=== PATIENT | male | born 1945 | race Caucasian/White ===

== ENCOUNTER 2016-10-26 09:28 | Outpatient (CLI) | payer MEDICARE, OTHER ==
[2016-10-26 12:47] LABS: BASOPHILS # (AUTO) 0.1 10^3/uL (0.0-0.1); BASOPHILS % (AUTO) 1.1 %; EOSINOPHILS # (AUTO) 0.1 10^3/uL (0.0-0.7); EOSINOPHILS % (AUTO) 2.1 %; HCT - HEMATOCRIT 43.6 % (42.0-52.0); HGB - HEMOGLOBIN 14.5 g/dL (14.0-18.0); LYMPHOCYTES # (AUTO) 1.5 10^3/uL (1.5-3.5); LYMPHOCYTES % (AUTO) 24.8 %; MEAN CORPUSCULAR HEMOGLOBIN 29.8 pg (27.0-31.0); MEAN CORPUSCULAR HGB CONC 33.2 g/dL (32.0-36.0); MEAN CORPUSCULAR VOLUME 89.7 fL (80.0-94.0); MEAN PLATELET VOLUME 7.7 fL (7.4-11.4); MONOCYTES # (AUTO) 0.6 10^3/uL (0.0-1.0); MONOCYTES % (AUTO) 9.5 %; NEUTROPHILS # (AUTO) 3.8 10^3/uL (1.5-6.6); NEUTROPHILS % (AUTO) 62.5 %; NUCLEATED RED BLOOD CELLS AUTO 0.1 /100WBC; RED BLOOD COUNT 4.86 10^6/uL (4.70-6.10)
[2016-10-26 13:06] LABS: HEMOGLOBIN A1C 0.62 g/dL
[2016-10-26 13:10] LABS: ALBUMIN/GLOBULIN RATIO 1.5 (1.0-2.2); BILIRUBIN,TOTAL 0.7 mg/dL (0.2-1.0); BUN - BLOOD UREA NITROGEN 21 mg/dL (6-20); CALCIUM 9.7 mg/dL (8.5-10.3); CARBON DIOXIDE - CO2 26 mmol/L (21-32); CHLORIDE 104 mmol/L (101-111); CHOL/HDL RATIO 3.3 (<5.0); CHOLESTEROL 176 mg/dL; CREATININE 0.8 mg/dL (0.6-1.2); GFR - MDRD 95 (>89); GLUCOSE 99 mg/dL (70-100); HDL CHOLESTEROL 54 mg/dL; LDL/HDL RATIO 2.1 (<3.6); POTASSIUM 3.8 mmol/L (3.5-5.0); SODIUM 139 mmol/L (135-145); TOTAL PROTEIN 7.3 g/dL (6.7-8.2); TRIGLYCERIDES 55 mg/dL; VLDL CHOLESTEROL 11 mg/dL
== END 2016-10-26 09:29 | disposition home or self-care (01) ==
LOC: LAB.N 09:28
PROVIDERS: ATTEND Internal Medicine
DX: M19.90 Unspecified osteoarthritis, unspecified site (principal); E78.5 Hyperlipidemia, unspecified; E88.81 Metabolic syndrome and other insulin resistance; I10 Essential (primary) hypertension; Z79.899 Other long term (current) drug therapy; Z72.89 Other problems related to lifestyle
CPT/HCPCS: 36415; 80053; 80061; 83036; 84443; 85025; 86803

== ENCOUNTER 2017-04-21 08:00 | Outpatient (CLI) | payer MEDICARE, OTHER ==
[2017-04-21 18:47] LABS: CREATININE 0.8 mg/dL (0.6-1.2)
== END 2017-04-21 08:01 | disposition home or self-care (01) ==
LOC: LAB.N 08:00
PROVIDERS: ATTEND Surgery
DX: Z01.812 Encounter for preprocedural laboratory examination (principal); R10.32 Left lower quadrant pain
CPT/HCPCS: 36415; 82565; 84520

== ENCOUNTER 2017-12-22 09:21 | Outpatient (CLI) | payer MEDICARE, OTHER ==
[2017-12-22 12:47] LABS: BASOPHILS % (AUTO) 0.7 %; EOSINOPHILS # (AUTO) 0.1 10^3/uL (0.0-0.7); EOSINOPHILS % (AUTO) 1.1 %; LYMPHOCYTES # (AUTO) 1.2 10^3/uL (1.5-3.5); MEAN CORPUSCULAR HEMOGLOBIN 32.9 pg (27.0-31.0); MEAN CORPUSCULAR VOLUME 96.8 fL (80.0-94.0); MEAN PLATELET VOLUME 7.3 fL (7.4-11.4); MONOCYTES # (AUTO) 0.7 10^3/uL (0.0-1.0); MONOCYTES % (AUTO) 12.1 %; NEUTROPHILS # (AUTO) 3.6 10^3/uL (1.5-6.6); NEUTROPHILS % (AUTO) 64.1 %; PLT - PLATELET COUNT 334 10^3/uL (130-450); RED BLOOD COUNT 4.26 10^6/uL (4.70-6.10); WHITE BLOOD COUNT 5.6 x10^3/uL (4.8-10.8)
[2017-12-22 13:13] LABS: HB2 TOTAL 15.4 g/dL; HEMOGLOBIN A1C 0.55 g/dL; HEMOGLOBIN A1C % 5.4 % (4.6-6.2)
[2017-12-22 13:16] LABS: ALBUMIN 4.2 g/dL (3.2-5.5); ALBUMIN/GLOBULIN RATIO 1.6 (1.0-2.2); ALKALINE PHOSPHATASE 63 IU/L (42-121); ALT ALANINE AMINOTRANSFERASE 22 IU/L (10-60); AST ASPARTATE AMINOTRANSFERASE 25 IU/L (10-42); BILIRUBIN,TOTAL 0.7 mg/dL (0.2-1.0); BUN - BLOOD UREA NITROGEN 18 mg/dL (6-20); CALCIUM 9.6 mg/dL (8.5-10.3); CARBON DIOXIDE - CO2 29 mmol/L (21-32); CHLORIDE 96 mmol/L (101-111); CHOL/HDL RATIO 2.8 (<5.0); CHOLESTEROL 160 mg/dL; CREATININE 0.9 mg/dL (0.6-1.2); GFR - MDRD 83 (>89); GLUCOSE 91 mg/dL (70-100); HDL CHOLESTEROL 57 mg/dL; LDL CHOLESTEROL,CALCULATED 93 mg/dL; LDL/HDL RATIO 1.6 (<3.6); SODIUM 133 mmol/L (135-145); TOTAL PROTEIN 6.8 g/dL (6.7-8.2); VLDL CHOLESTEROL 10 mg/dL
== END 2017-12-22 09:22 ==
LOC: LAB.N 09:21
PROVIDERS: ATTEND Internal Medicine
DX: E88.81 Metabolic syndrome and other insulin resistance (principal); Z79.899 Other long term (current) drug therapy; E78.5 Hyperlipidemia, unspecified; Z12.5 Encounter for screening for malignant neoplasm of prostate; I10 Essential (primary) hypertension
CPT/HCPCS: 36415; 80053; 80061; 83036; 85025; G0103; 83721; 84153

== ENCOUNTER 2018-06-08 10:39 | Outpatient (CLI) | payer MEDICARE, OTHER ==
[2018-06-08 11:18] LABS: BASOPHILS # (AUTO) 0.1 10^3/uL (0.0-0.1); BASOPHILS % (AUTO) 0.7 %; EOSINOPHILS # (AUTO) 0.1 10^3/uL (0.0-0.7); EOSINOPHILS % (AUTO) 0.5 %; HGB - HEMOGLOBIN 14.4 g/dL (14.0-18.0); LYMPHOCYTES % (AUTO) 9.4 %; MEAN CORPUSCULAR HEMOGLOBIN 31.1 pg (27.0-31.0); MEAN CORPUSCULAR HGB CONC 33.6 g/dL (32.0-36.0); MEAN CORPUSCULAR VOLUME 92.4 fL (80.0-94.0); MEAN PLATELET VOLUME 5.9 fL (7.4-11.4); MONOCYTES # (AUTO) 1.2 10^3/uL (0.0-1.0); MONOCYTES % (AUTO) 11.6 %; NEUTROPHILS % (AUTO) 77.8 %; PLT - PLATELET COUNT 355 10^3/uL (130-450); RED BLOOD COUNT 4.64 10^6/uL (4.70-6.10); RED CELL DISTRIBUTION WIDTH 14.3 % (12.0-15.0); WHITE BLOOD COUNT 10.2 x10^3/uL (4.8-10.8)
[2018-06-08 11:20] LABS: ALBUMIN 4.3 g/dL (3.2-5.5); ALBUMIN/GLOBULIN RATIO 1.4 (1.0-2.2); BILIRUBIN,TOTAL 0.7 mg/dL (0.2-1.0); CALCIUM 9.3 mg/dL (8.5-10.3); TOTAL PROTEIN 7.3 g/dL (6.7-8.2)
== END 2018-06-08 10:40 | disposition home or self-care (01) ==
LOC: LAB 10:39
PROVIDERS: ATTEND Internal Medicine Gastroenterology
DX: I10 Essential (primary) hypertension (principal); E78.5 Hyperlipidemia, unspecified
CPT/HCPCS: 36415; 80053; 85025; 93005

== ENCOUNTER 2018-06-08 11:13 | Outpatient (CLI) | payer MEDICARE, OTHER | END 2018-06-08 11:14 | disposition home or self-care (01) | LOC: RT 11:13 | PROVIDERS: ATTEND Internal Medicine Gastroenterology | DX: I10 Essential (primary) hypertension (principal); E78.5 Hyperlipidemia, unspecified ==

== ENCOUNTER 2018-06-15 09:54 | Day surgery (SDC) | payer MEDICARE, OTHER ==
[2018-06-15] MEDS ORDERED: LACTATED RINGERS 1,000 ML IV ONE (09:59)
[2018-06-15] MEDS ORDERED: fentaNYL 100 MCG/2 ML VIAL IVP ONE (10:54)
[2018-06-15] MEDS ORDERED: MIDAZOLAM 2 MG/2 ML VIAL IVP ONE (10:54)
[2018-06-15 11:48] VITALS: BP 102/73
== END 2018-06-15 09:55 | disposition home or self-care (01) ==
LOC: SDS 09:54
PROVIDERS: ATTEND Internal Medicine Gastroenterology
PROC: 0DJD8ZZ Inspection of Lower Intestinal Tract, Via Natural or Artificial Opening Endoscopic (ICD-10-PCS; principal; 2018-06-15 11:00)
DX: Z12.11 Encounter for screening for malignant neoplasm of colon (principal); Z86.010 Personal history of colon polyps; I10 Essential (primary) hypertension
CPT/HCPCS: G0105; J7120

== ENCOUNTER 2019-08-22 09:32 | Outpatient (CLI) | payer MEDICARE, OTHER ==
--- NOTE | 2019-08-22 11:10 | XRAY Report ---
PROCEDURE: Lumbar Spine Complete INDICATIONS: GROIN PX,LUMBAR RADICULOPATHY,SPINAL STENOSIS,HIP TECHNIQUE: 4 views of the lumbar spine were acquired. COMPARISON: None. FINDINGS: No fracture or focal osseous destruction. Scattered multilevel endplate spurring and diffuse facet a rthropathy. Grade 1 anterolisthesis of L3 on L4. Grade 1 retrolisthesis of T12 on L1 and L1 on L2 Lateral curvatu re of the spine. Severe narrowing of the L5-S1 disc space. Moderate narrowing of the remaining lumbar disc spaces. Scattered vascular calcifications are present in the aorta. IMPRESSION: Moderate diffuse lumbar spondylosis and facet arthropathy. Multilevel spondylolistheses as above. Reviewed by: Angel Martinez MD on 08/22/2019 11:09 AM PDT Approved by: Angel Martinez MD on 08/22/2019 11:09 AM PDT Station ID: [id number]
--- NOTE | 2019-08-22 11:49 | XRAY Report ---
PROCEDURE: Hips 2V BILAT INDICATIONS: GROIN PX,LUMBAR RADICULOPATHY,SPINAL STENOSIS,HIP TECHNIQUE: 2 views of the hip were acquired. AP pelvis was acquired. COMPARISON: None available FINDINGS: Bones: No fractures or dislocations. There are severe degenerative changes in both hips including n ear complete joint space loss superiorly and axially. In the femoral acetabular joint, subcortical cy stic changes, spurring of the inferior femoral heads, and superior acetabula. No suspicious bony lesi ons. The visualized pelvic ring appears intact. Soft tissues: No suspicious soft tissue calcifications or masses. Mild arterial calcification. IMPRESSION: 1. Severe, fairly symmetric degenerative and arthritic changes in the hip joints bilaterally Reviewed by: Juliann Leger MD on 08/22/2019 11:48 AM PDT Approved by: Juliann Leger MD on 08/22/2019 11:48 AM PDT Station ID: [id number]
== END 2019-08-22 09:33 | disposition home or self-care (01) ==
LOC: DI 09:32
PROVIDERS: ATTEND Family Medicine
DX: M47.816 Spondylosis without myelopathy or radiculopathy, lumbar region (principal); M47.817 Spondylosis without myelopathy or radiculopathy, lumbosacral region; M43.16 Spondylolisthesis, lumbar region; M16.0 Bilateral primary osteoarthritis of hip
CPT/HCPCS: 72110; 73521

== ENCOUNTER 2019-08-27 08:59 | Outpatient (CLI) | payer MEDICARE, OTHER ==
[2019-08-27 12:28] LABS: BASOPHILS # (AUTO) 0.1 10^3/uL (0.0-0.1); BASOPHILS % (AUTO) 0.8 %; EOSINOPHILS # (AUTO) 0.1 10^3/uL (0.0-0.7); EOSINOPHILS % (AUTO) 1.4 %; HGB - HEMOGLOBIN 14.5 g/dL (14.0-18.0); LYMPHOCYTES # (AUTO) 1.4 10^3/uL (1.5-3.5); LYMPHOCYTES % (AUTO) 22.3 %; MEAN CORPUSCULAR HEMOGLOBIN 29.7 pg (27.0-31.0); MEAN CORPUSCULAR HGB CONC 31.8 g/dL (32.0-36.0); MEAN CORPUSCULAR VOLUME 93.4 fL (80.0-94.0); MEAN PLATELET VOLUME 9.1 fL (7.4-11.4); MONOCYTES # (AUTO) 0.6 10^3/uL (0.0-1.0); NEUTROPHILS # (AUTO) 4.2 10^3/uL (1.5-6.6); NEUTROPHILS % (AUTO) 66.2 %; PLT - PLATELET COUNT 337 10^3/uL (130-450); RED BLOOD COUNT 4.88 10^6/uL (4.70-6.10); RED CELL DISTRIBUTION WIDTH 14.2 % (12.0-15.0); WHITE BLOOD COUNT 6.3 x10^3/uL (4.8-10.8)
[2019-08-27 12:49] LABS: ALBUMIN 4.4 g/dL (3.2-5.5); ALBUMIN/GLOBULIN RATIO 1.5 (1.0-2.2); BILIRUBIN,TOTAL 0.5 mg/dL (0.2-1.0); CALCIUM 9.8 mg/dL (8.5-10.3); CREATININE 0.9 mg/dL (0.6-1.2); TOTAL PROTEIN 7.3 g/dL (6.7-8.2)
== END 2019-08-27 23:59 | disposition home or self-care (01) ==
LOC: LAB.WCP 08:59
PROVIDERS: ATTEND Family Medicine
DX: I10 Essential (primary) hypertension (principal); Z12.5 Encounter for screening for malignant neoplasm of prostate
CPT/HCPCS: 36415; 80053; 84443; 85025; G0103; 84153

== ENCOUNTER 2019-08-30 10:42 | Outpatient (CLI) | payer MEDICARE, OTHER | END 2019-08-30 23:59 | disposition home or self-care (01) | LOC: LAB.WCP 10:42 | PROVIDERS: ATTEND Family Medicine | DX: Z03.818 Encounter for observation for suspected exposure to other biological agents ruled out (principal) | CPT/HCPCS: 36415; 86769 ==

== ENCOUNTER 2020-07-14 13:15 | Outpatient (CLI) | payer MEDICARE, OTHER ==
--- NOTE | 2020-07-14 17:24 | MRI Report ---
PROCEDURE: Lumbar Spine W/O INDICATIONS: SPINAL STENOSIS, LUMBAR TECHNIQUE: Noncontrast sagittal T1 spin echo and T2 fast echo, sagittal STIR, axial T1 and T2 fast spin echo thr ough the lumbar spine. In cases with scoliosis, additional coronal T2 fast spin echo may be performe d. COMPARISON: Lumbar spine x-ray series 08/22/2019. FINDINGS: Image quality: Excellent. Alignment and Curvature: There is mild L4-L5 and L5-S1 anterolisthesis. 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 For purposes of this dictation the 6 lumbar-type nonrib-bearing vertebral bodies be designa saray L1-S1 with the last nonrudimentary disc designated S1-S2. Reactive endplate changes noted adjacen t to the T12-L1, L1-L2, L2-L3, L3-L4, L4-L5, L5-S1 and S1-S2 discs. No acute vertebral body compressi on fractures. Spinal Cord: Conus medullaris terminates at the L1-2 disc level. Visualized cord demonstrates zack l signal and size. Paraspinous Soft Tissues: No paravertebral masses. T12-L1: Loss of disc signal. Mild, diffuse disc bulge. No central stenosis. No neuroforaminal narrow ing. No neural compression. L1-L2: Loss of disc signal and height. Mild, diffuse disc bulge. Mild bilateral facet hypertrophy. Mild narrowing of the central canal. Mild bilateral neural foraminal narrowing. No neural compressio n. L2-L3: Loss of disc signal. Mild, diffuse disc bulge. Mild bilateral facet hypertrophy. Mild to mo derate narrowing of the central canal. Mild to moderate bilateral neural foraminal narrowing. No neur al compression. L3-L4: Loss of disc signal and height. Mild to moderate diffuse disc bulge. Mild to moderate bilate ral facet hypertrophy. Mild ligamentum flavum hypertrophy. Moderate narrowing of the central canal. M oderate bilateral neural foraminal narrowing. No neural compression. L4-L5: Loss of disc signal and height. Mild, diffuse disc bulge. Moderate bilateral facet hypertrop hy. Severe narrowing of the central canal with slight compression of the traversing nerve roots of th e cauda equina. Moderate bilateral neural foraminal narrowing. L5-S1: Loss of disc signal and height. Mild, diffuse disc bulge. Severe right and moderate left fac et hypertrophy. Severe narrowing of the central canal with slight compression of the traversing nerve roots of the cauda equina. Severe right and moderate left neural foraminal narrowing with compressio n of the exiting right L5 nerve root. S1-S2: Loss of disc signal. Mild, diffuse disc bulge. Mild bilateral facet hypertrophy. No central st enosis. No neural foraminal narrowing. No neural compression IMPRESSION: 1. 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 2. Multilevel degenerative disc disease. 3. Multilevel facet arthropathy. 4. Severe L4-L5 and L5-S1 central canal narrowing slight compression of the traversing nerve roots of the cauda equina. 5. Severe right L5-S1 neural foraminal narrowing with slight compression of the exiting right L5 nerv e root. Reviewed by: Jackelyn Schwartz MD, PhD on 07/14/2020 5:23 PM PDT Approved by: Jackelyn Schwartz MD, PhD on 07/14/2020 5:23 PM PDT Station ID: [id number]
== END 2020-07-14 13:16 | disposition home or self-care (01) ==
LOC: DI 13:15
PROVIDERS: ATTEND Physical Medicine & Rehabilitation Pain Medicine
DX: M51.36 Other intervertebral disc degeneration, lumbar region (principal); M48.061 Spinal stenosis, lumbar region without neurogenic claudication; M47.816 Spondylosis without myelopathy or radiculopathy, lumbar region; M51.37 Other intervertebral disc degeneration, lumbosacral region; M48.07 Spinal stenosis, lumbosacral region; M47.817 Spondylosis without myelopathy or radiculopathy, lumbosacral region; M47.898 Other spondylosis, sacral and sacrococcygeal region; M53.3 Sacrococcygeal disorders, not elsewhere classified

== ENCOUNTER 2020-09-11 08:04 | Outpatient (CLI) | payer MEDICARE, OTHER ==
[2020-09-11 13:12] LABS: BASOPHILS % (AUTO) 0.6 %; EOSINOPHILS # (AUTO) 0.1 10^3/uL (0.0-0.7); EOSINOPHILS % (AUTO) 1.5 %; HCT - HEMATOCRIT 44.7 % (42.0-52.0); HGB - HEMOGLOBIN 13.8 g/dL (14.0-18.0); LYMPHOCYTES # (AUTO) 1.3 10^3/uL (1.5-3.5); LYMPHOCYTES % (AUTO) 18.9 %; MEAN CORPUSCULAR HEMOGLOBIN 29.2 pg (27.0-31.0); MEAN CORPUSCULAR HGB CONC 30.9 g/dL (32.0-36.0); MEAN CORPUSCULAR VOLUME 94.7 fL (80.0-94.0); MEAN PLATELET VOLUME 9.2 fL (7.4-11.4); MONOCYTES # (AUTO) 0.6 10^3/uL (0.0-1.0); MONOCYTES % (AUTO) 8.1 %; NEUTROPHILS # (AUTO) 4.8 10^3/uL (1.5-6.6); NEUTROPHILS % (AUTO) 70.3 %; PLT - PLATELET COUNT 363 10^3/uL (130-450); RED BLOOD COUNT 4.72 10^6/uL (4.70-6.10); WHITE BLOOD COUNT 6.8 x10^3/uL (4.8-10.8)
[2020-09-11 14:07] LABS: ALBUMIN 4.4 g/dL (3.2-5.5); ALBUMIN/GLOBULIN RATIO 1.6 (1.0-2.2); ALKALINE PHOSPHATASE 75 IU/L (42-121); ALT ALANINE AMINOTRANSFERASE 23 IU/L (10-60); AST ASPARTATE AMINOTRANSFERASE 23 IU/L (10-42); BILIRUBIN,TOTAL 0.7 mg/dL (0.2-1.0); BUN - BLOOD UREA NITROGEN 21 mg/dL (6-20); CALCIUM 9.9 mg/dL (8.5-10.3); CARBON DIOXIDE - CO2 27 mmol/L (21-32); CHLORIDE 102 mmol/L (101-111); CHOL/HDL RATIO 2.8 (<5.0); CHOLESTEROL 156 mg/dL; CREATININE 0.9 mg/dL (0.6-1.2); GFR - MDRD 82 (>89); GLUCOSE 93 mg/dL (70-100); HDL CHOLESTEROL 56 mg/dL; LDL CHOLESTEROL,CALCULATED 87 mg/dL; LDL/HDL RATIO 1.6 (<3.6); POTASSIUM 4.7 mmol/L (3.5-5.0); SODIUM 140 mmol/L (135-145); TOTAL PROTEIN 7.1 g/dL (6.7-8.2); TRIGLYCERIDES 63 mg/dL; VLDL CHOLESTEROL 13 mg/dL
[2020-09-11 14:19] LABS: THYROID STIMULATING HORMONE 1.64 uIU/mL (0.34-5.60)
== END 2020-09-11 23:59 | disposition home or self-care (01) ==
LOC: LAB.WCP 08:04
PROVIDERS: ATTEND Family Medicine
DX: M16.0 Bilateral primary osteoarthritis of hip (principal); I10 Essential (primary) hypertension; M75.41 Impingement syndrome of right shoulder; M19.019 Primary osteoarthritis, unspecified shoulder; M51.37 Other intervertebral disc degeneration, lumbosacral region
CPT/HCPCS: 36415; 80053; 80061; 83721; 84443; 85025; 85651

== ENCOUNTER 2021-12-24 08:52 | Day surgery (SDC) | payer MEDICARE, OTHER ==
--- NOTE | 2021-12-24 07:50 | ANESTHESIA ---
Pre-Anesthesia VS, & Labs Height: 5 ft 9 in - NPO >8 hours - Lab Results Lab results reviewed: No <Mega Hernandez - Last Filed: 12/24/21 07:49> - Diagnosis L senile combined cataract (Mega Hernandez) - Procedure extraction L cataract w IOL (Mega Hernandez) Vital Signs: Temp Pulse Resp BP Pulse Ox O2 Flow Rate 36.1 C L 59 L 16 155/70 H 99 0 12/24/21 08:59 12/24/21 08:59 12/24/21 08:59 12/24/21 08:59 12/24/21 08:59 12/24/21 08:59 Home Medications and Allergies <Mega Hernandez - Last Filed: 12/24/21 07:49> <Radha Lua E - Last Filed: 12/24/21 09:44> Meloxicam 1 tab PO DAILY 06/14/18 Multivitamin [Multiple Vitamins] 1 tab PO DAILY 06/14/18 Allergies/Adverse Reactions: Allergies Allergy/AdvReac Type Severity Reaction Status Date / Time oxycodone AdvReac Unknown Verified 12/23/21 11:10 Anes History & Medical History - Medical History Cardiovascular: reports: Hypertension, High cholesterol Pulmonary: reports: None Gastrointestinal: reports: None, Colon polyps Urinary: reports: None Musculoskeletal: reports: Osteoarthritis Endocrine/Autoimmune: reports: None Skin: reports: None - Surgical History General: reports: Colonoscopy Eyes Ears Nose Throat (EENT): reports: Other Orthopedic: reports: Hip replacement, Other <Mega Hernandez P - Last Filed: 12/24/21 07:49> - Anesthetic History Anesthesia Complications: reports: No previous complications - Medical History Cardiovascular: reports: High cholesterol Gastrointestinal: reports: None, Colon polyps Urinary: reports: None Musculoskeletal: reports: Osteoarthritis Endocrine/Autoimmune: reports: None Skin: reports: None - Surgical History General: reports: Colonoscopy Eyes Ears Nose Throat (EENT): reports: Other Orthopedic: reports: Hip replacement, Other <Radha Lua E - Last Filed: 12/24/21 09:44> Exam General: Alert, Oriented x3, Cooperative <Mega Hernandez - Last Filed: 12/24/21 07:49> General: Alert, Oriented x3, Cooperative Dental: WNL Neck Mobility: Normal Mallampati classification: II Thyromental Distance: greater than 6 cm Respiratory: Lungs clear Cardiovascular: Regular rate <Radha Lua E - Last Filed: 12/24/21 09:44> Plan Anesthesia Type: MAC Consent for Procedure(s) Verified and Reviewed: Yes Code Status: Attempt Resuscitation ASA classification: 2-Mild systemic disease Is this case an emergency?: No <Mega Hernandez P - Last Filed: 12/24/21 07:49> Anesthesia Type: MAC Consent for Procedure(s) Verified and Reviewed: Yes Code Status: Attempt Resuscitation ASA classification: 2-Mild systemic disease Is this case an emergency?: No <Radha Lua E - Last Filed: 12/24/21 09:44>
[~2021-12-24 08:52] MED LIST: BRIMONIDINE 0.2% OPHTH DROPS 5 ML ONE; BSS/LIDOCAINE/EPINEPHRINE 1 ML VIAL ONE; CYCLOPENTOLATE 1% OPHTH DROPS 2 ML ONE; EPINEPHrine 1 MG/ML AMP ONE; KETOROLAC 0.45% OPHTH DROPS ONE; PHENYLEPHRINE 2.5% OPHTH 2 ML DROPS ONE; PROPARACAINE 0.5% OPHTH DROPS 15 ML ONE; TIMOLOL 0.5% OPHTH DROPS ONE; TRIAMCIN/MOXIFLOX OPHTHALMIC 0.6 ML VIAL IO ONE; VANCOMYCIN OPHTH (TOPICAL) 10 MG/ML SYRINGE ONE
[2021-12-24] MEDS ORDERED: LACTATED RINGERS 1,000 ML IV ONE (08:58)
[2021-12-24] MEDS ORDERED: MIDAZOLAM 2 MG/2 ML VIAL ONE (09:26)
[2021-12-24] MEDS ORDERED: BRIMONIDINE 0.2% OPHTH DROPS 5 ML OPTH ONE (10:18)
[2021-12-24] MEDS ORDERED: TIMOLOL 0.5% OPHTH DROPS OPTH ONE (10:19)
[2021-12-24] MEDS ORDERED: EPINEPHrine 1 MG/ML AMP IR ONE (10:19)
[2021-12-24] MEDS ORDERED: BSS/LIDOCAINE/EPINEPHRINE 1 ML SYRINGE IO ONE (10:19)
[2021-12-24] MEDS ORDERED: PROPARACAINE 0.5% OPHTH DROPS 15 ML EACHEYE ONE (10:20)
[2021-12-24] MEDS ORDERED: TRIAMCIN/MOXIFLOX OPHTHALMIC 0.6 ML VIAL IO ONE (10:20)
[2021-12-24] MEDS ORDERED: VANCOMYCIN OPHTH (TOPICAL) 10 MG/ML SYRINGE TOP ONE (10:20)
[2021-12-24] MEDS ORDERED: LACTATED RINGERS 750 ML IV ONE (10:26)
--- NOTE | 2021-12-24 10:34 | OPERATIVE REPORT ---
Operative Report - Other Other Information/Narrative: Date of Surgery: 12/24/21 Preop Dx: Visually significant cataract left eye. This was the first cataract surgery. Postop Dx: Same Procedure: Phacoemulsification with posterior chamber intraocular lens implant left eye Surgeon: Dr. Devin Watters Anesthesia: Monitored anesthesia care Complications: None Operative Indications: This is a 76-year-old M with progressive vision loss in the left eye due to 2+ nuclear sclerotic and 1+ posterior subcapsular cataract. Best corrected visual acuity was 20/50 with glare to 20/60 vision in the left eye. Indications for surgery were: - Overall decrease in vision - Difficulty seeing words on a computer screen - Difficulty reading - Difficulty seeing words, closed captions, or game scores on TV - Difficulty seeing street signs - Difficulty driving in low light or at night - Difficulty driving at night because of headlights from other vehicles - Difficulty with glare or bright lights in any situation - Decreased acuity with firearms The patient was consented at length concerning the risks and benefits of cataract surgery after which the patient expressed a desire to proceed with surgery. Operative Procedure: The patient was taken into OR#3 and placed under monitored anesthesia care. A surgical time-out was conducted confirming correct patient, correct procedure, and correct surgical site. The patient was given topical anesthesia and then prepped and draped in the usual sterile fashion. The eye was entered at the 6 and 3 oclock positions. Intracameral Shugarcaine was injected into the anterior chamber followed by a dispersive viscoelastic. A continuous-tear curvilinear capsulorhexis was performed. The nucleus was hydrodissected and phacoemulsified. The cortex was evacuated using automated infusion and aspiration. A cohesive viscoelastic was injected into the capsular bag and a 21.5 diopter intraocular lens was inserted into the bag. Infusion and aspiration were used to evacuate the viscoelastic materials from the eye. The wounds were hydrated and the eye inflated to physiologic pressure using balanced salt solution. Approximately 0.25ml of a mixture of triamcinolone and moxifloxacin was injected trans-sclerally into the vitreous in the inferotemporal quadrant using a 30 gauge cannula. An additional 0.55ml of a mixture of triamcinolone and moxifloxacin was injected subconjunctivally in the superior quadrant for infection and inflammation prophylaxis. Wound integrity was checked with Weck-Jacqueline sponges. The patient was taken from the operating room in good condition and given post-op instructions.
--- NOTE | 2021-12-24 10:36 | ANESTHESIA POST OP EVALUATION ---
Anesthesia Post Eval - Post Anesthesia Eval Vitals: Last Vital Signs Temp 36.2 C L 12/24/21 10:26 Pulse 57 L 12/24/21 10:26 Resp 16 12/24/21 10:26 BP 143/78 H 12/24/21 10:26 Pulse Ox 100 12/24/21 10:26 O2 Flow Rate 0 12/24/21 08:59 CV Function Including HR & BP: Stable Pain Control: Satisfactory Nausea & Vomiting: Negative Mental Status: Baseline Respiratory Status: Airway Patent Hydration Status: Satisfactory Anesthesia Complications: None
[2021-12-24 10:50] VITALS: BP 127/68
== END 2021-12-24 08:53 | disposition home or self-care (01) ==
LOC: SDS 08:52
PROVIDERS: ATTEND Ophthalmology
DX: H25.812 Combined forms of age-related cataract, left eye (principal)
CPT/HCPCS: 66984; A9270; J3490; J7120

== ENCOUNTER 2022-01-20 10:21 | Outpatient (CLI) | payer MEDICARE, OTHER ==
--- NOTE | 2022-01-20 12:49 | Ultrasound Report ---
PROCEDURE: Pelvic Limited or F/U INDICATIONS: LEFT GROIN PAIN TECHNIQUE: Real-time transabdominal scanning was performed of the left groin, with image documentation. COMPARISON: None. FINDINGS: No left inguinal hernia. No mass or fluid collection in the area of concern. IMPRESSION: No left inguinal hernia. Reviewed by: Rowdy Bledsoe MD on 01/20/2022 12:48 PM PST Approved by: Rowdy Bledsoe MD on 01/20/2022 12:48 PM PST Station ID: [id number]
== END 2022-01-20 10:22 | disposition home or self-care (01) ==
LOC: DI 10:21
PROVIDERS: ATTEND Physician Assistant
DX: R10.32 Left lower quadrant pain (principal)

== ENCOUNTER 2022-02-11 08:21 | Day surgery (SDC) | payer MEDICARE, OTHER ==
[~2022-02-11 08:21] MED LIST changes: -BRIMONIDINE 0.2% OPHTH DROPS 5 ML ONE; -BSS/LIDOCAINE/EPINEPHRINE 1 ML VIAL ONE; -EPINEPHrine 1 MG/ML AMP ONE; -TIMOLOL 0.5% OPHTH DROPS ONE; -TRIAMCIN/MOXIFLOX OPHTHALMIC 0.6 ML VIAL IO ONE; -VANCOMYCIN OPHTH (TOPICAL) 10 MG/ML SYRINGE ONE
--- NOTE | 2022-02-11 09:32 | ANESTHESIA ---
Pre-Anesthesia VS, & Labs - Diagnosis RIGHT CATARACT - Procedure RIGHT CATARACT EXTRACTION W/ LENS REPLACEMENT Vital Signs: Temp Pulse Resp BP Pulse Ox O2 Flow Rate 36.3 C L 56 L 14 144/75 H 97 02/11/22 08:59 02/11/22 08:59 02/11/22 08:59 02/11/22 08:59 02/11/22 08:59 Height: 5 ft 9 in Weight (kg): 80.1 kg Body Mass Index: 26.0 BMI Classification: Overweight - NPO >8 hours Home Medications and Allergies Meloxicam 1 tab PO DAILY 06/14/18 Multivitamin [Multiple Vitamins] 1 tab PO DAILY 06/14/18 Allergies/Adverse Reactions: Allergies Allergy/AdvReac Type Severity Reaction Status Date / Time oxycodone AdvReac Unknown Verified 12/23/21 11:10 Anes History & Medical History - Anesthetic History Anesthesia Complications: reports: No previous complications Family history of Anesthesia Complications: Denies Family history of Malignant Hyperthermia: Denies - Medical History Cardiovascular: reports: High cholesterol Pulmonary: reports: None Gastrointestinal: reports: None, Colon polyps Urinary: reports: None Neuro: reports: None Musculoskeletal: reports: Osteoarthritis Endocrine/Autoimmune: reports: None Blood Disorders: reports: None Skin: reports: None Smoking Status: Never smoker Psychosocial: reports: No issues indicated History of Cancer?: No - Surgical History General: reports: Colonoscopy Eyes Ears Nose Throat (EENT): reports: Cataracts, Other Orthopedic: reports: Hip replacement, Other Exam General: Alert, Oriented x3, Cooperative, No acute distress Dental: WNL Mouth Openin Fingerbreadth Mallampati classification: II Thyromental Distance: 4-6 cm Respiratory: Lungs clear, Normal breath sounds, No respiratory distress, No accessory muscle use Cardiovascular: Regular rate, Normal S1, Normal S2, No murmurs Mental/Cognitive Status: Alert/Oriented X3, Normal for patient Cognitive Status: Within normal limits Plan Anesthesia Type: MAC Consent for Procedure(s) Verified and Reviewed: Yes Code Status: Attempt Resuscitation ASA classification: 2-Mild systemic disease Is this case an emergency?: No
[2022-02-11] MEDS ORDERED: EPINEPHrine 1 MG/ML AMP IR ONE (10:09)
[2022-02-11] MEDS ORDERED: TIMOLOL 0.5% OPHTH DROPS OPTH ONE (10:09)
[2022-02-11] MEDS ORDERED: BRIMONIDINE 0.2% OPHTH DROPS 5 ML OPTH ONE (10:09)
[2022-02-11] MEDS ORDERED: PROPARACAINE 0.5% OPHTH DROPS 15 ML EACHEYE ONE (10:10)
[2022-02-11] MEDS ORDERED: VANCOMYCIN OPHTH (TOPICAL) 10 MG/ML SYRINGE TOP ONE (10:10)
[2022-02-11] MEDS ORDERED: BSS/LIDOCAINE/EPINEPHRINE 1 ML SYRINGE IO ONE (10:10)
[2022-02-11] MEDS ORDERED: TRIAMCIN/MOXIFLOX OPHTHALMIC 0.6 ML VIAL IO ONE ×2 (10:10→13:51)
[2022-02-11] MEDS ORDERED: LACTATED RINGERS 700 ML IV ONE (10:18)
--- NOTE | 2022-02-11 10:30 | OPERATIVE REPORT ---
Operative Report - Other Other Information/Narrative: Date of Surgery: 02/11/22 Preop Dx: Visually significant cataract right eye. Cataract surgery was performed in the left eye on . Postop Dx: Same Procedure: Phacoemulsification with posterior chamber intraocular lens implant right eye Surgeon: Dr. Devin Watters Anesthesia: Monitored anesthesia care Complications: None Operative Indications: This is a 76-year-old M with progressive vision loss in the right eye due to 2+ nuclear sclerotic and vacuolar cataract. Best corrected visual acuity was 20/30 with glare to 20/50 vision in the right eye. Indications for surgery were: - Overall decrease in vision - Difficulty seeing words on a computer screen - Difficulty reading - Difficulty seeing words, closed captions, or game scores on TV - Difficulty seeing street signs - Difficulty driving in low light or at night - Difficulty driving at night because of headlights from other vehicles - Difficulty with glare or bright lights in any situation The patient was consented at length concerning the risks and benefits of cataract surgery after which the patient expressed a desire to proceed with surgery. Operative Procedure: The patient was taken into OR#3 and placed under monitored anesthesia care. A surgical time-out was conducted confirming correct patient, correct procedure, and correct surgical site. The patient was given topical anesthesia and then prepped and draped in the usual sterile fashion. The eye was entered at the 6 and 3 oclock positions. Intracameral Shugarcaine was injected into the anterior chamber followed by a dispersive viscoelastic. A continuous-tear curvilinear capsulorhexis was performed. The nucleus was hydrodissected and phacoemulsified. The cortex was evacuated using automated infusion and aspiration. A cohesive viscoelastic was injected into the capsular bag and a 21.0 diopter intraocular lens was inserted into the bag. Infusion and aspiration were used to evacuate the viscoelastic materials from the eye. The wounds were hydrated and the eye inflated to physiologic pressure using balanced salt solution. Approximately 0.25ml of a mixture of triamcinolone and moxifloxacin was injected trans-sclerally into the vitreous in the inferotemporal quadrant using a 30 gauge cannula. An additional 0.55ml of a mixture of triamcinolone and moxifloxacin was injected subconjunctivally in the superior quadrant for infection and inflammation prophylaxis. Wound integrity was checked with Weck-Jacqueline sponges. The patient was taken from the operating room in good condition and given post-op instructions.
[2022-02-11 10:38] VITALS: BP 144/79
[2022-02-11] MEDS ORDERED: BRIMONIDINE 0.2% OPHTH DROPS 5 ML ONE (13:51)
[2022-02-11] MEDS ORDERED: EPINEPHrine 1 MG/ML AMP ONE (13:51)
[2022-02-11] MEDS ORDERED: BSS/LIDOCAINE/EPINEPHRINE 1 ML VIAL ONE (13:52)
[2022-02-11] MEDS ORDERED: TIMOLOL 0.5% OPHTH DROPS ONE (13:52)
[2022-02-11] MEDS ORDERED: VANCOMYCIN OPHTH (TOPICAL) 10 MG/ML SYRINGE ONE (13:52)
--- NOTE | 2022-02-11 13:58 | ANESTHESIA POST OP EVALUATION ---
Anesthesia Post Eval - Post Anesthesia Eval Vitals: Last Vital Signs Temp 36.5 C 02/11/22 10:37 Pulse 60 02/11/22 10:37 Resp 16 02/11/22 10:37 BP 144/79 H 02/11/22 10:37 Pulse Ox 97 02/11/22 10:37 O2 Flow Rate CV Function Including HR & BP: Stable Pain Control: Satisfactory Nausea & Vomiting: Negative Mental Status: Baseline Respiratory Status: Airway Patent Hydration Status: Satisfactory Anesthesia Complications: None
== END 2022-02-11 08:22 | disposition home or self-care (01) ==
LOC: SDS 08:21
PROVIDERS: ATTEND Ophthalmology
DX: H25.811 Combined forms of age-related cataract, right eye (principal); Z98.42 Cataract extraction status, left eye
CPT/HCPCS: 66984; A9270; J3490; J7120

== ENCOUNTER 2022-03-01 08:13 | Outpatient (CLI) | payer MEDICARE, OTHER ==
[2022-03-01 11:37] LABS: BASOPHILS # (AUTO) 0.1 10^3/uL (0.0-0.1); EOSINOPHILS # (AUTO) 0.1 10^3/uL (0.0-0.7); EOSINOPHILS % (AUTO) 1.1 %; HCT - HEMATOCRIT 49.1 % (42.0-52.0); HGB - HEMOGLOBIN 15.2 g/dL (14.0-18.0); LYMPHOCYTES # (AUTO) 1.6 10^3/uL (1.5-3.5); LYMPHOCYTES % (AUTO) 24.9 %; MEAN CORPUSCULAR HEMOGLOBIN 29.2 pg (27.0-31.0); MEAN CORPUSCULAR VOLUME 94.4 fL (80.0-94.0); MEAN PLATELET VOLUME 9.4 fL (7.4-11.4); MONOCYTES # (AUTO) 0.5 10^3/uL (0.0-1.0); MONOCYTES % (AUTO) 8.5 %; NEUTROPHILS % (AUTO) 64.3 %; PLT - PLATELET COUNT 288 10^3/uL (130-450); RED CELL DISTRIBUTION WIDTH 14.1 % (12.0-15.0); WHITE BLOOD COUNT 6.2 x10^3/uL (4.8-10.8)
[2022-03-01 11:55] LABS: ALBUMIN 4.3 g/dL (3.2-5.5); ALBUMIN/GLOBULIN RATIO 1.5 (1.0-2.2); ALKALINE PHOSPHATASE 69 IU/L (42-121); ALT ALANINE AMINOTRANSFERASE 22 IU/L (10-60); AST ASPARTATE AMINOTRANSFERASE 21 IU/L (10-42); BILIRUBIN,TOTAL 0.8 mg/dL (0.2-1.0); BUN - BLOOD UREA NITROGEN 22 mg/dL (6-20); CALCIUM 9.5 mg/dL (8.5-10.3); CARBON DIOXIDE - CO2 29 mmol/L (21-32); CHLORIDE 102 mmol/L (101-111); CHOL/HDL RATIO 4.4 (<5.0); CHOLESTEROL 305 mg/dL; CREATININE 0.9 mg/dL (0.6-1.2); GFR - MDRD 82 (>89); GLUCOSE 99 mg/dL (70-100); HDL CHOLESTEROL 69 mg/dL; LDL CHOLESTEROL,CALCULATED 219 mg/dL; LDL/HDL RATIO 3.2 (<3.6); POTASSIUM 4.6 mmol/L (3.5-5.0); SODIUM 137 mmol/L (135-145); TOTAL PROTEIN 7.2 g/dL (6.7-8.2); TRIGLYCERIDES 83 mg/dL; VLDL CHOLESTEROL 17 mg/dL
[2022-03-01 12:01] LABS: THYROID STIMULATING HORMONE 2.78 uIU/mL (0.34-5.60)
== END 2022-03-01 08:14 | disposition home or self-care (01) ==
LOC: LAB.N 08:13
PROVIDERS: ATTEND Family Medicine
DX: I10 Essential (primary) hypertension (principal); E78.5 Hyperlipidemia, unspecified
CPT/HCPCS: 36415; 80053; 80061; 83721; 84153; 84443; 85025

== ENCOUNTER 2023-05-17 07:43 | Outpatient (CLI) | payer MEDICARE, OTHER ==
[2023-05-17 12:25] LABS: BASOPHILS # (AUTO) 0.1 10^3/uL (0.0-0.1); BASOPHILS % (AUTO) 1.1 %; EOSINOPHILS # (AUTO) 0.1 10^3/uL (0.0-0.7); EOSINOPHILS % (AUTO) 2.1 %; HCT - HEMATOCRIT 45.6 % (42.0-52.0); HGB - HEMOGLOBIN 14.7 g/dL (14.0-18.0); LYMPHOCYTES # (AUTO) 1.7 10^3/uL (1.5-3.5); LYMPHOCYTES % (AUTO) 31.8 %; MEAN CORPUSCULAR HEMOGLOBIN 30.3 pg (27.0-31.0); MEAN CORPUSCULAR HGB CONC 32.2 g/dL (32.0-36.0); MEAN PLATELET VOLUME 9.2 fL (7.4-11.4); MONOCYTES # (AUTO) 0.5 10^3/uL (0.0-1.0); MONOCYTES % (AUTO) 8.8 %; NEUTROPHILS % (AUTO) 55.8 %; PLT - PLATELET COUNT 285 10^3/uL (130-450); RED BLOOD COUNT 4.85 10^6/uL (4.70-6.10); WHITE BLOOD COUNT 5.4 x10^3/uL (4.8-10.8)
[2023-05-17 12:47] LABS: ALBUMIN 4.2 g/dL (3.2-5.5); ALBUMIN/GLOBULIN RATIO 1.8 (1.0-2.2); ALKALINE PHOSPHATASE 70 IU/L (42-121); ALT ALANINE AMINOTRANSFERASE 20 IU/L (10-60); AST ASPARTATE AMINOTRANSFERASE 24 IU/L (10-42); BILIRUBIN,TOTAL 0.5 mg/dL (0.2-1.0); BUN - BLOOD UREA NITROGEN 20 mg/dL (6-20); CALCIUM 9.9 mg/dL (8.5-10.3); CARBON DIOXIDE - CO2 30 mmol/L (21-32); CHLORIDE 104 mmol/L (101-111); CHOL/HDL RATIO 4.7 (<5.0); CHOLESTEROL 280 mg/dL; CREATININE 0.9 mg/dL (0.6-1.3); GFR - MDRD 82 (>89); GLUCOSE 91 mg/dL (74-104); HDL CHOLESTEROL 59 mg/dL; LDL CHOLESTEROL,CALCULATED 198 mg/dL; LDL/HDL RATIO 3.4 (<3.6); POTASSIUM 4.4 mmol/L (3.5-4.5); SODIUM 137 mmol/L (135-145); TOTAL PROTEIN 6.6 g/dL (6.4-8.9); TRIGLYCERIDES 114 mg/dL (48-352); VLDL CHOLESTEROL 23 mg/dL
[2023-05-17 12:54] LABS: THYROID STIMULATING HORMONE 3.25 uIU/mL (0.34-5.60)
== END 2023-05-17 07:44 | disposition home or self-care (01) ==
LOC: LAB.N 07:43
PROVIDERS: ATTEND Family Medicine
DX: M16.12 Unilateral primary osteoarthritis, left hip (principal); Z96.641 Presence of right artificial hip joint; M16.11 Unilateral primary osteoarthritis, right hip; M48.00 Spinal stenosis, site unspecified; M51.36 Other intervertebral disc degeneration, lumbar region; M51.37 Other intervertebral disc degeneration, lumbosacral region
CPT/HCPCS: 36415; 80053; 80061; 83721; 84443; 85025

== ENCOUNTER 2023-08-12 08:03 | Day surgery (SDC) | payer MEDICARE, OTHER ==
[~2023-08-12 08:03] MED LIST changes: -CYCLOPENTOLATE 1% OPHTH DROPS 2 ML ONE; -KETOROLAC 0.45% OPHTH DROPS ONE; +LIDOCAINE-MPF 2% 5 ML VIAL ONE; -PHENYLEPHRINE 2.5% OPHTH 2 ML DROPS ONE; -PROPARACAINE 0.5% OPHTH DROPS 15 ML ONE; +PROPOFOL 200 MG/20 ML VIAL IVP ONE; +PROPOFOL 500 MG/50 ML 500 MG/50 ML VIAL ONE; +SUGAMMADEX 200 MG/2 ML VIAL IVP ONE
[2023-08-12] MEDS: LACTATED RINGERS 1,000 ML IV ONE ×2 (08:08→09:59)
--- NOTE | 2023-08-12 08:36 | ANESTHESIA ---
Pre-Anesthesia VS, & Labs Height: 5 ft 9 in Weight (kg): 80.3 kg Body Mass Index: 26.1 BMI Classification: Overweight - NPO >8 hours Last Fluid Intake: am prep - Lab Results Lab results reviewed: Yes <Verónica Duran - Last Filed: 08/12/23 08:32> - Diagnosis screening (Verónica Duran) - Procedure colonoscopy (Verónica Duran) Vital Signs: Temp Pulse Resp BP Pulse Ox O2 Flow Rate 36.2 C L 69 16 155/89 H 99 0 08/12/23 08:19 08/12/23 08:19 08/12/23 08:19 08/12/23 08:19 08/12/23 08:19 08/12/23 08:19 Home Medications and Allergies <Verónica Duran - Last Filed: 08/12/23 08:32> <Radha Jaime - Last Filed: 08/12/23 10:22> Meloxicam 1 tab PO DAILY 06/14/18 Multivitamin [Multiple Vitamins] 1 tab PO DAILY 06/14/18 Allergies/Adverse Reactions: Allergies Allergy/AdvReac Type Severity Reaction Status Date / Time oxycodone AdvReac Unknown Verified 12/23/21 11:10 Anes History & Medical History - Anesthetic History Anesthesia Complications: reports: No previous complications Family history of Anesthesia Complications: Denies Family history of Malignant Hyperthermia: Denies - Medical History Cardiovascular: reports: Hypertension Pulmonary: reports: None Gastrointestinal: reports: Colon polyps Urinary: reports: None Neuro: reports: None Musculoskeletal: reports: Osteoarthritis, Chronic back pain Endocrine/Autoimmune: reports: None Blood Disorders: reports: None Skin: reports: None Smoking Status: Never smoker - Surgical History General: reports: Other Eyes Ears Nose Throat (EENT): reports: Cataracts Orthopedic: reports: Hip replacement <Verónica Duran - Last Filed: 08/12/23 08:32> Results - EKG Results EKG Comparison: Reviewed EKG, Normal EKG <Radha Jaime - Last Filed: 08/12/23 10:22> Exam General: Alert, Oriented x3, Cooperative <Verónica Duran - Last Filed: 08/12/23 08:32> General: Alert, Oriented x3, Cooperative, No acute distress Dental: WNL Mouth Openin Fingerbreadth Neck Mobility: Normal Mallampati classification: II Thyromental Distance: 4-6 cm Respiratory: Lungs clear, Normal breath sounds, No respiratory distress, No accessory muscle use Cardiovascular: Regular rate, Normal S1, Normal S2, No murmurs Abdomen: Normal bowel sounds, Soft, No tenderness, No hepatospenomegaly, No masses Extremities: No clubbing, No cyanosis, No edema, Normal pulses, No tenderness/swelling Neurological: Normal gait, Normal speech, Strength at 5/5 X4 ext, Normal tone, Sensation intact, Cranial nerves 3-12 NL, Reflexes 2+ Mental/Cognitive Status: Alert/Oriented X3, Normal for patient Cognitive Status: Within normal limits <Radha Jaime - Last Filed: 08/12/23 10:22> Plan Anesthesia Type: Total IV Consent for Procedure(s) Verified and Reviewed: Yes Code Status: Attempt Resuscitation ASA classification: 2-Mild systemic disease Is this case an emergency?: No <Verónica Duran - Last Filed: 08/12/23 08:32> Anesthesia Type: General, Total IV Consent for Procedure(s) Verified and Reviewed: Yes Code Status: Attempt Resuscitation ASA classification: 2-Mild systemic disease <Radha Jaime - Last Filed: 08/12/23 10:22>
[2023-08-12] MEDS: SIMETHICONE *(INFANT SUSP)* 40 MG/0.6 ML BOTTLE PO ONE (09:35)
[2023-08-12] MEDS ORDERED: PROPOFOL 200 MG/20 ML VIAL IVP ONE ×2 (09:55)
[2023-08-12 10:49] VITALS: BP 131/84; O2SAT 97
--- NOTE | 2023-08-12 12:14 | ANESTHESIA POST OP EVALUATION ---
Anesthesia Post Eval - Post Anesthesia Eval Vitals: Last Vital Signs Temp 36.2 C L 08/12/23 10:44 Pulse 62 08/12/23 10:44 Resp 16 08/12/23 10:44 BP 131/84 H 08/12/23 10:44 Pulse Ox 97 08/12/23 10:44 O2 Flow Rate 0 08/12/23 08:19 CV Function Including HR & BP: Stable Pain Control: Satisfactory Nausea & Vomiting: Negative Mental Status: Baseline Respiratory Status: Airway Patent Hydration Status: Satisfactory Anesthesia Complications: None
== END 2023-08-12 08:04 | disposition home or self-care (01) ==
LOC: SDS 08:03
PROVIDERS: ATTEND Surgery
PROC: 0DBM8ZZ Excision of Descending Colon, Via Natural or Artificial Opening Endoscopic (ICD-10-PCS; principal; 2023-08-12 09:30)
DX: Z12.11 Encounter for screening for malignant neoplasm of colon (principal); D12.4 Benign neoplasm of descending colon; I10 Essential (primary) hypertension
CPT/HCPCS: 45385; A9270; J7120

== ENCOUNTER 2024-03-30 11:01 | Inpatient (IN) ==
--- NOTE | 2024-03-30 11:32 | ED Physician Documentation ---
History of Present Illness Stated complaint Stated Complaint: DEHYDRATION/LIGHT HEADED Chief complaint Chief Complaint: Abd Pain Additonal information Additional information: This is a relatively healthy 78-year-old gentleman who has a lot of bone and joint problems for which he takes meloxicam chronically. Last few days has developed dark and tarry stools and has had 2 near syncopal episodes, this morning so severe he could not get off the bathroom floor. He has no history of GI bleeding. Has no significant abdominal discomfort. Meds/Allgy Home Medications Ambulatory Orders Medication Instructions Recorded Confirmed multivitamin (Multiple Vitamins 1 tab PO DAILY 06/14/18 03/05/24 tablet) vit C 250 mg-vit E 90 mg-zinc 40 1 tab PO QAM AND QHS 03/01/24 03/05/24 mg-copper 1 [id number]-lffmnm-wahjyb capsule (PreserVision AREDS-2) meloxicam 15 mg tablet 15 mg PO DAILY #90 tabs 03/05/24 03/05/24 Allergies Allergies Allergy/AdvReac Type Severity Reaction Status Date / Time oxycodone AdvReac Unknown Verified 03/30/24 11:20 beta blockers AdvReac Severe Unknown Uncoded 03/30/24 11:20 [facility] Medical History Medical History (Updated 03/30/24 @ 13:06 by Rasheeda Hale DO) Weight loss Arthropathy of elbow Depression Nummular eczema Bilateral shoulder pain Personal history of colon polyps, unspecified Hypertension Impingement syndrome of right shoulder Surgical History Surgical History (Updated 03/04/24 @ 08:08 by Edwardo Srinivasan MD) History of arthroplasty of left hip History of arthroplasty of right hip Family History Family History (Updated 03/05/24 @ 08:24 by Donita Ndiaye LPN) Other Family history unknown Social History Social History (Updated 03/05/24 @ 08:31 by Donita Ndiaye LPN) Smoking Status: Never smoker Second hand tobacco smoke exposure: No Do you dip or chew tobacco?: No Do you vape?: No Patient requests smoking cessation consult: No Initiate information on smoking cessation: No Living arrangement: At home Marital Status: Living Condition: With spouse/s.o. 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 Known occupational exposures/hazards (Current/Previous): None Known Service: Yes Dates of Service: [id number] Are you following a diet prescribed by a doctor: No Are you following a special diet: No POLST Patient has POLST: No Exam Exam Mild resting tachycardia Constitutional normal general appearance and no apparent distress HENMT normocephalic Eyes PERRL and EOMs intact bilaterally Respiratory breath sounds equal bilaterally, normal respiratory effort and clear to auscultation bilaterally Cardiovascular no murmur Tachycardic but regular without murmur Gastrointestinal abdomen soft to palpation and nontender to palpation Genitourinary He is incontinent of melena Neurology GCS 15 Results Vitals Vitals: Vital Signs - 24 hr 03/30/24 11:15 03/30/24 13:19 03/30/24 13:19 Temperature 36.3 C L 36.4 C Temperature Source Temporal Artery Scan Oral Pulse Rate 86 89 Pulse Rate [Monitoring electrodes] 91 Respiratory Rate 18 14 15 Blood Pressure 143/67 H 113/68 Blood Pressure [Right Brachial artery] 106/64 O2 Saturation 97 92 93 O2 Source Room air Room air Room air Sedation scale 0-Fully awake Pain Intensity 0 0 0 03/30/24 13:41 Temperature 97.5 C H Temperature Source Oral Pulse Rate Pulse Rate [Monitoring electrodes] 90 Respiratory Rate 16 Blood Pressure Blood Pressure [Right Brachial artery] 101/65 O2 Saturation 92 O2 Source Room air Sedation scale 0-Fully awake Pain Intensity 0 Oxygen O2 Source [With Activity] Room air O2 Source [Without Activity] Room air O2 Source Room air EKG (time done) 1127: EKG releavant findings:: EKG personally interpreted by author of this note. Relevant findings are: Rate: Rate (enter#) (99) Rhythm: NSR Intervals: Normal [place] QRS: Other (LAFB) Ischemia: ST depression (mild, lateral) Labs Labs: Microbiology 03/30/24 11:45 Occult Blood - Final Stool Laboratory Tests 03/30/24 11:40 WBC 16.8 H RBC 2.43 L Hgb 7.4 L Hct 23.9 L MCV 98.4 H MCH 30.5 MCHC 31.0 L RDW 14.0 Plt Count 195 MPV 8.6 Neut # (Auto) 13.9 H Lymph # (Auto) 1.5 Ritchie # (Auto) 1.1 H Eos # (Auto) 0.1 Baso # (Auto) 0.1 Absolute Nucleated RBC 0.00 Nucleated RBC % 0.0 PT 13.0 H INR 1.2 Sodium 143 Potassium 4.4 Chloride 114 H Carbon Dioxide 26 Anion Gap 3.0 L BUN 48 H Creatinine 0.8 Estimated GFR (MDRD) 93 Glucose 117 H POC Whole Bld Glucose 117 Calcium 8.0 L Total Bilirubin 0.2 AST 24 ALT 19 Alkaline Phosphatase 40 L Total Protein 4.3 L Albumin 3.1 L Globulin 1.2 L Albumin/Globulin Ratio 2.6 H Lipase 27 Blood Type O POSITIVE Antibody Screen NEGATIVE Crossmatch IS Only See Detail PD Medical Decision Making ED course ED course: 78-year-old gentleman presents with an upper GI bleed. He is covered in melena he is guaiac positive. He is borderline tachycardic, but not hypotensive. His hemoglobin is 7.4, review of the chart shows that previous values were in the normal range (14.7 last May). He was given IV Protonix. I spoke with our on- call surgeon, Dr. Mclain at approximately 11:50 AM and she defers to medicine for admission but plans to see him and likely do endoscopy. I did order 1 unit of transfusion, although his hemoglobin is above 7 he is clearly actively bleeding. Spoke with Dr. Bandar Hale for admission at 12:01 pm, He did request a chest x- ray for his leukocytosis as that is currently unexplained.. The patient and family are counseled as to the diagnosis and need for admission. This document was made in part using voice recognition software, while efforts are made to proofread this document, sound alike an grammatical errors may occur. Critical Care Time(min): 36 Time Includes: Direct patient care, Review records, Reassess patient, Document care, Coordinate care, Medical consult and Family consult for tx dec Data interpretation: Labs and Pulse ox Procedures included in critical care time: Peripheral IV Procedures excluded from critical care time: EKG Discharge Plan Discharge Patient Disposition: 66 [facility] DC/Xfer Condition: Serious Clinical Impression: Acute upper gastrointestinal bleeding, ABLA (acute blood loss anemia) Interventions: ED Admission Assessment Last Done: 03/30/24 15:04
[2024-03-30 11:46] LABS: BASOPHILS # (AUTO) 0.1 10^3/uL (0.0-0.1); BASOPHILS % (AUTO) 0.4 %; EOSINOPHILS # (AUTO) 0.1 10^3/uL (0.0-0.7); EOSINOPHILS % (AUTO) 0.4 %; HCT - HEMATOCRIT 23.9 % (42.0-52.0); HGB - HEMOGLOBIN 7.4 g/dL (14.0-18.0); LYMPHOCYTES # (AUTO) 1.5 10^3/uL (1.5-3.5); LYMPHOCYTES % (AUTO) 8.9 %; MEAN CORPUSCULAR HEMOGLOBIN 30.5 pg (27.0-31.0); MEAN CORPUSCULAR VOLUME 98.4 fL (80.0-94.0); MEAN PLATELET VOLUME 8.6 fL (7.4-11.4); MONOCYTES # (AUTO) 1.1 10^3/uL (0.0-1.0); MONOCYTES % (AUTO) 6.7 %; NEUTROPHILS # (AUTO) 13.9 10^3/uL (1.5-6.6); PLT - PLATELET COUNT 195 10^3/uL (130-450); RED BLOOD COUNT 2.43 10^6/uL (4.70-6.10); WHITE BLOOD COUNT 16.8 x10^3/uL (4.8-10.8)
[2024-03-30 11:52] LABS: INR 1.2 (0.8-1.2)
[2024-03-30] MEDS: PANTOPRAZOLE 40 MG VIAL IVP STA (12:01)
[2024-03-30 12:03] LABS: ALBUMIN 3.1 g/dL (3.2-5.5); ALBUMIN/GLOBULIN RATIO 2.6 (1.0-2.2); BILIRUBIN,TOTAL 0.2 mg/dL (0.2-1.0); CREATININE 0.8 mg/dL (0.6-1.3); POTASSIUM 4.4 mmol/L (3.5-4.5); TOTAL PROTEIN 4.3 g/dL (6.4-8.9)
--- NOTE | 2024-03-30 13:01 | HISTORY & PHYSICAL EXAMINATION ---
Chief Complaint Chief Complaint Chief Complaint: Blood per rectum History of Present Illness History of Present Illness HPI Comment/Other: This is a 78-year-old male with a past medical history of bone and joint discomfort, on meloxicam greater than 2 years, who presents to the ER for new onset of lower GI bleed.Patient states that his first bloody watery bowel movement was yesterday, which continued this morning. Patient denies chest pain, Palpitation, shortness of breath or abdominal pain or palpitation. Patient states that he [place] weak on arrival but this has Now resolved. Patient received Protonix and 1 unit of RBCs in the ER. ER physician consulted surgery for EGD. Surgery plan for EGD this afternoon. Laboratory values indicated reactive leukocytosis of 16.8, hemoglobin 7.4 and grossly normal chemistry. Patient is full code Meds/Allgy Home Medications Ambulatory Orders Medication Instructions Recorded Confirmed multivitamin (Multiple Vitamins 1 tab PO DAILY 06/14/18 03/05/24 tablet) vit C 250 mg-vit E 90 mg-zinc 40 1 tab PO QAM AND QHS 03/01/24 03/05/24 mg-copper 1 [id number] capsule (PreserVision AREDS-2) meloxicam 15 mg tablet 15 mg PO DAILY #90 tabs 03/05/24 03/05/24 Allergies Allergies Allergy/AdvReac Type Severity Reaction Status Date / Time oxycodone AdvReac Unknown Verified 03/30/24 11:20 beta blockers AdvReac Severe Unknown Uncoded 03/30/24 11:20 [facility] Medical History Medical History (Updated 03/30/24 @ 13:06 by Rasheeda Hale DO) Weight loss Arthropathy of elbow Depression Nummular eczema Bilateral shoulder pain Personal history of colon polyps, unspecified Hypertension Impingement syndrome of right shoulder Surgical History Surgical History (Updated 03/04/24 @ 08:08 by Edwardo Srinivasan MD) History of arthroplasty of left hip History of arthroplasty of right hip Family History Family History (Updated 03/05/24 @ 08:24 by Donita Ndiaye LPN) Other Family history unknown Social History Social History (Updated 03/05/24 @ 08:31 by Donita Ndiaye LPN) Smoking Status: Never smoker Second hand tobacco smoke exposure: No Do you dip or chew tobacco?: No Do you vape?: No Patient requests smoking cessation consult: No Initiate information on smoking cessation: No Living arrangement: At home Marital Status: Living Condition: With spouse/s.o. 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 Known occupational exposures/hazards (Current/Previous): None Known Service: Yes Dates of Service: [id number] Are you following a diet prescribed by a doctor: No Are you following a special diet: No POLST Patient has POLST: No Review of Systems Status of ROS: 10 or more systems reviewed and unremarkable except as noted in history and below Exam Constitutional normal general appearance and no apparent distress HENMT normocephalic and head/scalp atraumatic Eyes PERRL and EOMs intact bilaterally Neck/C-Spine visual inspection normal and trachea midline Chest inspection of chest normal and palpation of chest normal Respiratory breath sounds equal bilaterally and normal respiratory effort Cardiovascular normal heart rate noted and regular rhythm noted Gastrointestinal abdomen normal to inspection and abdomen soft to palpation Extremities normal to inspection and normal to palpation Neurology lock tender II-XII intact Skin skin color normal and no rash Conclusion/Plan Problem List (1) ABLA (acute blood loss anemia): Plan: Hemoglobin of 7.4 with several episodes of melena. Patient on meloxicam for Extended period of time for joint pain. Transfuse RBC, trend H&H. (2) Upper GI bleed: Plan: Plan for EGD today Protonix 40 IV twice daily (3) Leukocytosis: Plan: Likely reactive, no signs of infection etiology. Hold ABX for now, monitor (4) Joint pain: Plan: Patient has chronic joint pain for which he takes meloxicam at night. Stop meloxicam Tylenol and Dilaudid for pain control Patient was anxious to follow-up with investment banking analyst. Lab Results Lab results reviewed: Yes 03/30/24 11:40 03/30/24 11:40 Diagnostic Imaging Results Diagnostic Imaging Results: positive Final report reviewed
[2024-03-30] MEDS ORDERED: ACETAMINOPHEN 325 MG TABLET PO PRN (13:11)
[2024-03-30] MEDS ORDERED: HYDROmorphone 0.5 MG/0.5 ML SYRINGE IVP PRN ×3 (13:12→16:38)
--- NOTE | 2024-03-30 13:59 | XRAY Report ---
PROCEDURE: XR Chest 1V INDICATIONS: leukocytosis TECHNIQUE: One view of the chest was acquired. COMPARISON: None. FINDINGS: Surgical changes and devices: Right shoulder arthroplasty. Lungs and pleura: No pleural effusions or pneumothorax. No consolidation. Mediastinum: Mediastinal contours appear normal. Heart size is normal. Bones and chest wall: No suspicious bony lesions. Overlying soft tissues appear unremarkable. IMPRESSION: No acute cardiopulmonary process. Reviewed by: Venancio You MD on 03/30/2024 1:58 PM [facility] Approved by: Venancio You MD on 03/30/2024 1:58 PM [facility] Station ID: [id number]
--- NOTE | 2024-03-30 14:35 | CONSULTATION NOTE ---
Chief Complaint Chief Complaint Chief Complaint: feeling week and dark foul stool x 2 days History of Present Illness Admitted From Admitted From:: ed History Obtained From Records Reviewed: yes History obtained from: pt Exam Limitations: none History of Present Illness HPI Comment/Other: he has been feeling weak. ordinarily active and exercises. last 2 days dark foul stool and today could not get up due to weakness. feeling better now. hx nsaid use Meds/Allgy Home Medications Ambulatory Orders Medication Instructions Recorded Confirmed multivitamin (Multiple Vitamins 1 tab PO DAILY 06/14/18 03/05/24 tablet) vit C 250 mg-vit E 90 mg-zinc 40 1 tab PO QAM AND QHS 03/01/24 03/05/24 mg-copper 1 [id number]-[id number] capsule (PreserVision AREDS-2) meloxicam 15 mg tablet 15 mg PO DAILY #90 tabs 03/05/24 03/05/24 Allergies Allergies Allergy/AdvReac Type Severity Reaction Status Date / Time oxycodone AdvReac Unknown Verified 03/30/24 11:20 beta blockers AdvReac Severe Unknown Uncoded 03/30/24 11:20 [facility] Medical History Medical History (Updated 03/30/24 @ 13:06 by Rasheeda Hale DO) Weight loss Arthropathy of elbow Depression Nummular eczema Bilateral shoulder pain Personal history of colon polyps, unspecified Hypertension Impingement syndrome of right shoulder Surgical History Surgical History (Updated 03/04/24 @ 08:08 by Edwardo Srinivasan MD) History of arthroplasty of left hip History of arthroplasty of right hip Family History Family History (Updated 03/05/24 @ 08:24 by Donita Ndiaye LPN) Other Family history unknown Social History Social History (Updated 03/05/24 @ 08:31 by Donita Ndiaye LPN) Smoking Status: Never smoker Second hand tobacco smoke exposure: No Do you dip or chew tobacco?: No Do you vape?: No Patient requests smoking cessation consult: No Initiate information on smoking cessation: No Living arrangement: At home Marital Status: Living Condition: With spouse/s.o. 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 Known occupational exposures/hazards (Current/Previous): None Known Service: Yes Dates of Service: [id number] Are you following a diet prescribed by a doctor: No Are you following a special diet: No POLST Patient has POLST: No Results Lab Results Lab results reviewed: Yes 03/30/24 11:40 03/30/24 11:40 Other Lab Results: Lab Results x24hrs 03/30/24 Range/Units 11:40 WBC 16.8 H (4.8-10.8) x10^3/uL RBC 2.43 L (4.70-6.10) 10^6/uL Hgb 7.4 L (14.0-18.0) g/dL Hct 23.9 L (42.0-52.0) % MCV 98.4 H (80.0-94.0) fL MCH 30.5 (27.0-31.0) pg MCHC 31.0 L (32.0-36.0) g/dL RDW 14.0 (12.0-15.0) % Plt Count 195 (130-450) 10^3/uL MPV 8.6 (7.4-11.4) fL Neut # (Auto) 13.9 H (1.5-6.6) 10^3/uL Lymph # (Auto) 1.5 (1.5-3.5) 10^3/uL Edwards # (Auto) 1.1 H (0.0-1.0) 10^3/uL Eos # (Auto) 0.1 (0.0-0.7) 10^3/uL Baso # (Auto) 0.1 (0.0-0.1) 10^3/uL Absolute Nucleated RBC 0.00 x10^3/uL Nucleated RBC % 0.0 /100WBC PT 13.0 H (9.9-12.6) secs INR 1.2 (0.8-1.2) Sodium 143 (135-145) mmol/L Potassium 4.4 (3.5-4.5) mmol/L Chloride 114 H (101-111) mmol/L Carbon Dioxide 26 (21-32) mmol/L Anion Gap 3.0 L (6-13) BUN 48 H (6-20) mg/dL Creatinine 0.8 (0.6-1.3) mg/dL Estimated GFR (MDRD) 93 (>89) Glucose 117 H (74-104) mg/dL POC Whole Bld Glucose 117 (70-100) mg/dL Calcium 8.0 L (8.5-10.3) mg/dL Total Bilirubin 0.2 (0.2-1.0) mg/dL AST 24 (10-42) IU/L ALT 19 (10-60) IU/L Alkaline Phosphatase 40 L (42-121) IU/L Total Protein 4.3 L (6.4-8.9) g/dL Albumin 3.1 L (3.2-5.5) g/dL Globulin 1.2 L (2.1-4.2) g/dL Albumin/Globulin Ratio 2.6 H (1.0-2.2) Lipase 27 (11-82) U/L Blood Type O POSITIVE Antibody Screen NEGATIVE Crossmatch IS Only See Detail Review of Systems Status of ROS: 10 or more systems reviewed and unremarkable except as noted in history and below Exam Constitutional normal general appearance and no apparent distress HENMT normocephalic and head/scalp atraumatic Eyes PERRL, EOMs intact bilaterally and no scleral icterus Neck/C-Spine trachea midline Respiratory normal respiratory effort Cardiovascular normal heart rate noted and regular rhythm noted Gastrointestinal nondistended Neurology speech normal and GCS 15 Psychiatry oriented x3, thought process normal, cooperative, affect normal and memory normal Conclusion/Plan Problem List (1) ABLA (acute blood loss anemia): (2) Upper GI bleed: Plan: egd. parq held and consent obtained (3) Leukocytosis: (4) Joint pain: Lab Results Lab results reviewed: Yes 03/30/24 11:40 03/30/24 11:40
--- NOTE | 2024-03-30 14:44 | ANESTHESIA PROCEDURE NOTE ---
Pre-Anesthesia VS, & Labs Diagnosis Surgical Diagnosis:: GI bleed Procedure Procedure: EGD Vitals Vital Signs: Temp Pulse Resp BP Pulse Ox 97.5 C H 90 16 101/65 92 03/30/24 13:41 03/30/24 13:41 03/30/24 13:41 03/30/24 13:41 03/30/24 13:41 Lab Results Current Lab Results: Laboratory Tests 03/30/24 11:40: WBC 16.8 H, RBC 2.43 L, Hgb 7.4 L, Hct 23.9 L, MCV 98.4 H, MCH 30.5, MCHC 31.0 L, RDW 14.0, Plt Count 195, MPV 8.6, Neut # (Auto) 13.9 H, Lymph # (Auto) 1.5, [place] # (Auto) 1.1 H, Eos # (Auto) 0.1, Baso # (Auto) 0.1, Absolute Nucleated RBC 0.00, Nucleated RBC % 0.0, PT 13.0 H, INR 1.2, Sodium 143, Potassium 4.4, Chloride 114 H, Carbon Dioxide 26, Anion Gap 3.0 L, BUN 48 H, Creatinine 0.8, Estimated GFR (MDRD) 93, Glucose 117 H, POC Whole Bld Glucose 117, Calcium 8.0 L, Total Bilirubin 0.2, AST 24, ALT 19, Alkaline Phosphatase 40 L, Total Protein 4.3 L, Albumin 3.1 L, Globulin 1.2 L, Albumin/Globulin Ratio 2.6 H, Lipase 27, Blood Type O POSITIVE, Antibody Screen NEGATIVE, Crossmatch IS Only See Detail 03/30/24 11:40 03/30/24 11:40 Meds/Allgy Home Medications Ambulatory Orders Medication Instructions Recorded Confirmed multivitamin (Multiple Vitamins 1 tab PO DAILY 06/14/18 03/05/24 tablet) vit C 250 mg-vit E 90 mg-zinc 40 1 tab PO QAM AND QHS 03/01/24 03/05/24 mg-copper 1 [id number]-nbevnn capsule (PreserVision AREDS-2) meloxicam 15 mg tablet 15 mg PO DAILY #90 tabs 03/05/24 03/05/24 Allergies Allergies Allergy/AdvReac Type Severity Reaction Status Date / Time oxycodone AdvReac Unknown Verified 03/30/24 11:20 beta blockers AdvReac Severe Unknown Uncoded 03/30/24 11:20 [facility] Medical History Medical History (Updated 03/30/24 @ 13:06 by Rasheeda Hale DO) Weight loss Arthropathy of elbow Depression Nummular eczema Bilateral shoulder pain Personal history of colon polyps, unspecified Hypertension Impingement syndrome of right shoulder Surgical History Surgical History (Updated 03/04/24 @ 08:08 by Edwardo Srinivasan MD) History of arthroplasty of left hip History of arthroplasty of right hip Family History Family History (Updated 03/05/24 @ 08:24 by Donita Ndiaye LPN) Other Family history unknown Social History Social History (Updated 03/05/24 @ 08:31 by Donita Ndiaye LPN) Smoking Status: Never smoker Second hand tobacco smoke exposure: No Do you dip or chew tobacco?: No Do you vape?: No Patient requests smoking cessation consult: No Initiate information on smoking cessation: No Living arrangement: At home Marital Status: Living Condition: With spouse/s.o. 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 parq held and consent obtained (3) Leukocytosis: (4) Joint pain:
[2024-03-30] MEDS ORDERED: LIDOCAINE-PF 2% 10 ML AMP SUBQ ONE (15:05)
[2024-03-30] MEDS ORDERED: PROPOFOL 200 MG/20 ML VIAL IVP ONE (15:05)
--- NOTE | 2024-03-30 15:32 | OPERATIVE REPORT ---
Operative Report General Admit Date: 03/30/24 Procedure Data: Operation Date: 03/30/24 14:45 Proposed Procedures p Esophagogastroduodenoscopy(Not Applicable) - Javon Alexandra MD Pre-Op Diagnosis: DEHYDRATION/LIGHT HEADED, acute anemia, melena and concern for upper gi bleed Anesthesia Type General Case Staff Anesthesia Provider: Verónica Duran Case Times Procedure Start: 03/30/24 15:19 Procedure End: 03/30/24 15:26 Time out: 03/30/24 15:19 Pre-Op Diagnosis: acute anemia, melena and concern for ugi bleed Post Op Diagnosis: small to moderate paraesophageal hernia and mild adjacent erythema. Procedure Note Pathology: antrum Indications: ugi bleed with melena and acute anemia Findings: no blood in stomach, no ulcers. paraesophageal hernia with mild adjacent erythema Complications: none
--- NOTE | 2024-03-30 15:36 | ANESTHESIA PROCEDURE NOTE ---
Pre-Anesthesia VS, & Labs Diagnosis Surgical Diagnosis:: GI bleed Procedure Procedure: EGD Vitals Vital Signs: Temp Pulse Resp BP Pulse Ox 97.5 C H 89 16 113/68 92 03/30/24 15:04 03/30/24 15:04 03/30/24 15:04 03/30/24 15:04 03/30/24 15:04 Lab Results Current Lab Results: Laboratory Tests 03/30/24 11:40: WBC 16.8 H, RBC 2.43 L, Hgb 7.4 L, Hct 23.9 L, MCV 98.4 H, MCH 30.5, MCHC 31.0 L, RDW 14.0, Plt Count 195, MPV 8.6, Neut # (Auto) 13.9 H, Lymph # (Auto) 1.5, [place] # (Auto) 1.1 H, Eos # (Auto) 0.1, Baso # (Auto) 0.1, Absolute Nucleated RBC 0.00, Nucleated RBC % 0.0, PT 13.0 H, INR 1.2, Sodium 143, Potassium 4.4, Chloride 114 H, Carbon Dioxide 26, Anion Gap 3.0 L, BUN 48 H, Creatinine 0.8, Estimated GFR (MDRD) 93, Glucose 117 H, POC Whole Bld Glucose 117, Calcium 8.0 L, Total Bilirubin 0.2, AST 24, ALT 19, Alkaline Phosphatase 40 L, Total Protein 4.3 L, Albumin 3.1 L, Globulin 1.2 L, Albumin/Globulin Ratio 2.6 H, Lipase 27, Blood Type O POSITIVE, Antibody Screen NEGATIVE, Crossmatch IS Only See Detail 03/30/24 11:40 03/30/24 11:40 Meds/Allgy Home Medications Ambulatory Orders Medication Instructions Recorded Confirmed multivitamin (Multiple Vitamins 1 tab PO DAILY 06/14/18 03/05/24 tablet) vit C 250 mg-vit E 90 mg-zinc 40 1 tab PO QAM AND QHS 03/01/24 03/05/24 mg-copper 1 [id number]-umhskh-fxkukz capsule (PreserVision AREDS-2) meloxicam 15 mg tablet 15 mg PO DAILY #90 tabs 03/05/24 03/05/24 Allergies Allergies Allergy/AdvReac Type Severity Reaction Status Date / Time oxycodone AdvReac Unknown Verified 03/30/24 11:20 beta blockers AdvReac Severe Unknown Uncoded 03/30/24 11:20 PENDING SALE TO [facility] Medical History Medical History (Updated 03/30/24 @ 13:06 by Rasheeda Hale DO) Weight loss Arthropathy of elbow Depression Nummular eczema Bilateral shoulder pain Personal history of colon polyps, unspecified Hypertension Impingement syndrome of right shoulder Surgical History Surgical History (Updated 03/04/24 @ 08:08 by Edwardo Srinivasan MD) History of arthroplasty of left hip History of arthroplasty of right hip Family History Family History (Updated 03/05/24 @ 08:24 by Donita Ndiaye LPN) Other Family history unknown Social History Social History (Updated 03/05/24 @ 08:31 by Donita Ndiaye LPN) Smoking Status: Never smoker Second hand tobacco smoke exposure: No Do you dip or chew tobacco?: No Do you vape?: No Patient requests smoking cessation consult: No Initiate information on smoking cessation: No Living arrangement: At home Marital Status: Living Condition: With spouse/s.o. 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 parq held and consent obtained (3) Leukocytosis: (4) Joint pain: Plan Anesthesia Type: General and Total IV Consent for Procedure(s) Verified and Reviewed: Yes Code Status: Attempt Resuscitation ASA Classification ASA classification: 3-Severe systemic disease Is this case an emergency?: Yes
[2024-03-30] MEDS ORDERED: MORPHINE 2 MG/ML CARPUJECT IVP PRN (16:07)
[2024-03-30] MEDS ORDERED: ATROPINE ABBOJECT 1 MG/10 ML SYRINGE IVP PRN (16:07)
[2024-03-30] MEDS ORDERED: fentaNYL 100 MCG/2 ML VIAL IVP PRN (16:07)
[2024-03-30] MEDS ORDERED: ePHEDrine 50 MG/ML VIAL IVP PRN (16:07)
[2024-03-30] MEDS ORDERED: NALOXONE 0.4 MG/ML VIAL IVP PRN (16:07)
[2024-03-30] MEDS ORDERED: ONDANSETRON 4 MG/2 ML VIAL IVP PRN (16:07)
[2024-03-30] MEDS ORDERED: METOCLOPRAMIDE 10 MG/2 ML VIAL IVP PRN (16:07)
[2024-03-30 16:34] LABS: HCT - HEMATOCRIT 26.9 % (42.0-52.0); HGB - HEMOGLOBIN 8.3 g/dL (14.0-18.0)
[2024-03-30] MEDS ORDERED: ONDANSETRON ODT 4 MG TABLET TL PRN (16:38)
[2024-03-30] MEDS ORDERED: LACTATED RINGERS 1,000 ML IV SCH (17:00)
[2024-03-30] MEDS: PANTOPRAZOLE 40 MG VIAL IV SCH (20:52)
[2024-03-30] MEDS: SODIUM CHLORIDE FLUSH 0.9% 10 ML SYRINGE IVP SCH (20:52)
[2024-03-30 23:32] LABS: BILIRUBIN,URINE NEGATIVE (NEGATIVE); GLUCOSE, URINE (UA) NEGATIVE (NEGATIVE); KETONES,URINE (UA) NEGATIVE (NEGATIVE); LEUKOCYTE ESTERASE, URINE NEGATIVE (NEGATIVE); NITRITE,URINE NEGATIVE (NEGATIVE); OCCULT BLOOD,URINE NEGATIVE (NEGATIVE); PH,URINE 5.5 PH (5.0-7.5); PROTEIN,URINE NEGATIVE (NEGATIVE); UROBILINOGEN,URINE 0.2 (NORMAL) E.U./dL (NORMAL)
[2024-03-30 23:35] LABS: CLARITY,URINE CLEAR (CLEAR)
[2024-03-31 05:42] LABS: BASOPHILS # (AUTO) 0.1 10^3/uL (0.0-0.1); BASOPHILS % (AUTO) 0.5 %; EOSINOPHILS # (AUTO) 0.1 10^3/uL (0.0-0.7); EOSINOPHILS % (AUTO) 0.5 %; LYMPHOCYTES # (AUTO) 1.5 10^3/uL (1.5-3.5); LYMPHOCYTES % (AUTO) 15.6 %; MEAN CORPUSCULAR HEMOGLOBIN 30.1 pg (27.0-31.0); MEAN CORPUSCULAR HGB CONC 31.9 g/dL (32.0-36.0); MEAN CORPUSCULAR VOLUME 94.4 fL (80.0-94.0); MEAN PLATELET VOLUME 9.1 fL (7.4-11.4); MONOCYTES # (AUTO) 0.7 10^3/uL (0.0-1.0); MONOCYTES % (AUTO) 6.9 %; NEUTROPHILS # (AUTO) 7.5 10^3/uL (1.5-6.6); NEUTROPHILS % (AUTO) 76.1 %; PLT - PLATELET COUNT 173 10^3/uL (130-450); RED BLOOD COUNT 1.96 10^6/uL (4.70-6.10); RED CELL DISTRIBUTION WIDTH 15.8 % (12.0-15.0); WHITE BLOOD COUNT 9.8 x10^3/uL (4.8-10.8)
[2024-03-31 05:57] LABS: HCT - HEMATOCRIT 18.5 % (42.0-52.0); HGB - HEMOGLOBIN 5.9 g/dL (14.0-18.0)
[2024-03-31 06:05] LABS: CALCIUM 7.6 mg/dL (8.5-10.3); CREATININE 0.8 mg/dL (0.6-1.3); POTASSIUM 3.9 mmol/L (3.5-4.5)
--- NOTE | 2024-03-31 09:09 | PROVIDER PROGRESS NOTE ---
Subjective Prog Note Date Prog Note Date: 03/31/24 Prog Note Time: 09:06 Subjective Subjective: This is a 78-year-old male with a past medical history of bone and joint discomfort, on meloxicam greater than 2 years, who presents to the ER for new onset of lower GI bleed.Patient states that his first bloody watery bowel movement was yesterday, which continued this morning. Patient denies chest pain, Palpitation, shortness of breath or abdominal pain or palpitation. Patient states that he Waverly weak on arrival but this has Now resolved. Patient received Protonix and 1 unit of RBCs in the ER. ER physician consulted surgery for EGD. Surgery plan for EGD this afternoon. Laboratory values indicated reactive leukocytosis of 16.8, hemoglobin 7.4 and grossly normal chemistry. Patient is full code 03/31/2024: Status post EGD, 03/30/2024, with no findings of active bleeding. Patient had another overnight event of bleeding per rectum. Patient feels weak and at times dizzy. Patient scheduled for colonoscopy today. Current Medications Current Medications Current Medications: Current Medications Generic Name Dose Route Start Last Admin Trade Name Freq PRN Reason Stop Dose Admin Acetaminophen 650 mg 03/30/24 13:11 Acetaminophen 325 Mg Tablet PO Q6H PRN Pain or Fever > 38C (100.4F) Hydromorphone HCl 0.5 mg 03/30/24 16:38 Hydromorphone 0.5 Mg/0.5 Ml Syringe IVP Q2H PRN Pain 8 to 10 Ondansetron HCl 4 mg 03/30/24 16:38 Ondansetron Odt 4 Mg Tablet TL Q6HR PRN Nausea / Vomiting Pantoprazole Sodium 40 mg 03/30/24 21:00 03/30/24 20:52 Pantoprazole 40 Mg Vial IV 40 mg BID RONIT Administration Sodium Chloride 10 ml 03/30/24 16:38 Sodium Chloride Flush 0.9% 10 Ml Syringe IVP PRN PRN NEEDED PER PROVIDER ORDERS Sodium Chloride 10 ml 03/30/24 17:00 03/31/24 00:19 Sodium Chloride Flush 0.9% 10 Ml Syringe IVP 10 ml 0100,[id number],1700 RONIT Administration Objective Vital Signs/Intake & Output Reviewed Vital Signs: Yes Vital Signs: Vital Signs x48h Temp Pulse Resp BP Pulse Ox 03/31/24 08:58 37.0 C 83 16 120/58 L 98 03/31/24 08:36 36.8 C 80 16 109/56 L 97 03/31/24 08:22 37.0 C 79 16 110/49 L 96 03/31/24 05:00 36.7 C 85 18 103/55 L 96 Intake & Output: Intake & Output 03/28/24 03/29/24 03/30/24 03/31/24 23:59 23:59 23:59 23:59 Intake Total 900 / 900 950 / 950 Output Total 500 / 500 875 / 875 Balance 400 / 400 75 / 75 Weight (kg) 89.5 kg Objective General Appearance: positive No acute distress and Alert Eyes Bilateral: positive Normal inspection and PERRL ENT: positive ENT inspection nml and Pharynx nml Neck: positive Nml inspection and Trachea midline Respiratory: positive Chest non-tender and No respiratory distress Cardiovascular: positive Regular rate & rhythm and No murmur Abdomen: positive Non-tender and No organomegaly Skin: positive Color nml and No rash Extremities: positive Non-tender and Full ROM Neurologic/Psychiatric: positive Oriented x3 and CN's nml (2-12) Lab Results 03/31/24 05:30 03/31/24 05:30 Other Labs: Lab Results x24hrs 03/31/24 03/30/24 03/30/24 Range/Units 05:30 23:00 16:26 WBC 9.8 (4.8-10.8) x10^3/uL RBC 1.96 L (4.70-6.10) 10^6/uL Hgb 5.9 L* 8.3 L (14.0-18.0) g/dL Hct 18.5 L* 26.9 L (42.0-52.0) % MCV 94.4 H (80.0-94.0) fL MCH 30.1 (27.0-31.0) pg MCHC 31.9 L (32.0-36.0) g/dL RDW 15.8 H (12.0-15.0) % Plt Count 173 (130-450) 10^3/uL MPV 9.1 (7.4-11.4) fL Neut # (Auto) 7.5 H (1.5-6.6) 10^3/uL Lymph # (Auto) 1.5 (1.5-3.5) 10^3/uL [place] # (Auto) 0.7 (0.0-1.0) 10^3/uL Eos # (Auto) 0.1 (0.0-0.7) 10^3/uL Baso # (Auto) 0.1 (0.0-0.1) 10^3/uL Absolute Nucleated RBC 0.00 x10^3/uL Nucleated RBC % 0.0 /100WBC PT (9.9-12.6) secs INR (0.8-1.2) Sodium 139 (135-145) mmol/L Potassium 3.9 (3.5-4.5) mmol/L Chloride 111 (101-111) mmol/L Carbon Dioxide 23 (21-32) mmol/L Anion Gap 5.0 L (6-13) BUN 50 H (6-20) mg/dL Creatinine 0.8 (0.6-1.3) mg/dL Estimated GFR (MDRD) 93 (>89) Glucose 125 H (74-104) mg/dL POC Whole Bld Glucose (70-100) mg/dL Calcium 7.6 L (8.5-10.3) mg/dL Total Bilirubin (0.2-1.0) mg/dL AST (10-42) IU/L ALT (10-60) IU/L Alkaline Phosphatase (42-121) IU/L Total Protein (6.4-8.9) g/dL Albumin (3.2-5.5) g/dL Globulin (2.1-4.2) g/dL Albumin/Globulin Ratio (1.0-2.2) Lipase (11-82) U/L Urine Color YELLOW Urine Clarity CLEAR (CLEAR) Urine pH 5.5 (5.0-7.5) PH Ur Specific [place] 1.020 (1.002-1.030) Urine Protein NEGATIVE (NEGATIVE) mg/dL Urine Glucose (UA) NEGATIVE (NEGATIVE) mg/dL Urine Ketones NEGATIVE (NEGATIVE) mg/dL Urine Occult Blood NEGATIVE (NEGATIVE) Urine Nitrite NEGATIVE (NEGATIVE) Urine Bilirubin NEGATIVE (NEGATIVE) Urine Urobilinogen 0.2 (NORMAL) (NORMAL) E.U./dL Ur Leukocyte Esterase NEGATIVE (NEGATIVE) Ur Microscopic Review NOT INDICATED Urine Culture Comments NOT INDICATED Blood Type Antibody Screen Crossmatch IS Only 03/30/24 Range/Units 11:40 WBC 16.8 H (4.8-10.8) x10^3/uL RBC 2.43 L (4.70-6.10) 10^6/uL Hgb 7.4 L (14.0-18.0) g/dL Hct 23.9 L (42.0-52.0) % MCV 98.4 H (80.0-94.0) fL MCH 30.5 (27.0-31.0) pg MCHC 31.0 L (32.0-36.0) g/dL RDW 14.0 (12.0-15.0) % Plt Count 195 (130-450) 10^3/uL MPV 8.6 (7.4-11.4) fL Neut # (Auto) 13.9 H (1.5-6.6) 10^3/uL Lymph # (Auto) 1.5 (1.5-3.5) 10^3/uL [place] # (Auto) 1.1 H (0.0-1.0) 10^3/uL Eos # (Auto) 0.1 (0.0-0.7) 10^3/uL Baso # (Auto) 0.1 (0.0-0.1) 10^3/uL Absolute Nucleated RBC 0.00 x10^3/uL Nucleated RBC % 0.0 /100WBC PT 13.0 H (9.9-12.6) secs INR 1.2 (0.8-1.2) Sodium 143 (135-145) mmol/L Potassium 4.4 (3.5-4.5) mmol/L Chloride 114 H (101-111) mmol/L Carbon Dioxide 26 (21-32) mmol/L Anion Gap 3.0 L (6-13) BUN 48 H (6-20) mg/dL Creatinine 0.8 (0.6-1.3) mg/dL Estimated GFR (MDRD) 93 (>89) Glucose 117 H (74-104) mg/dL POC Whole Bld Glucose 117 (70-100) mg/dL Calcium 8.0 L (8.5-10.3) mg/dL Total Bilirubin 0.2 (0.2-1.0) mg/dL AST 24 (10-42) IU/L ALT 19 (10-60) IU/L Alkaline Phosphatase 40 L (42-121) IU/L Total Protein 4.3 L (6.4-8.9) g/dL Albumin 3.1 L (3.2-5.5) g/dL Globulin 1.2 L (2.1-4.2) g/dL Albumin/Globulin Ratio 2.6 H (1.0-2.2) Lipase 27 (11-82) U/L Urine Color Urine Clarity (CLEAR) Urine pH (5.0-7.5) PH Ur Specific [place] (1.002-1.030) Urine Protein (NEGATIVE) mg/dL Urine Glucose (UA) (NEGATIVE) mg/dL Urine Ketones (NEGATIVE) mg/dL Urine Occult Blood (NEGATIVE) Urine Nitrite (NEGATIVE) Urine Bilirubin (NEGATIVE) Urine Urobilinogen (NORMAL) E.U./dL Ur Leukocyte Esterase (NEGATIVE) Ur Microscopic Review Urine Culture Comments Blood Type O POSITIVE Antibody Screen NEGATIVE Crossmatch IS Only See Detail Assessment/Plan Problem List (1) ABLA (acute blood loss anemia): Impression: Status post EGD day 1. EGD indicates no active bleeding, Indications of esophagitis. Patient started on Protonix p.o. daily Patient had another episode of GI bleed. Hemoglobin dropped to 5.4. Patient was transfused with 1 unit RBC. Trend H&H. (2) Leukocytosis: Impression: Resolved (3) Joint pain: Impression: Patient has chronic joint pain for which he takes meloxicam at night. Stop meloxicam Tylenol and Dilaudid for pain control Recommendation to follow-up with expert witness as an outpatient. (4) Lower GI bleed: Impression: Patient status post EGD with no indication of active bleed. Patient had another episode of brisk bleeding per rectum overnight. Plan for colonoscopy today.
--- NOTE | 2024-03-31 12:29 | PROVIDER PROGRESS NOTE ---
Subjective General Admit Date: 03/30/24 Procedure Date: 03/30/24 Post Op Days: 1 Procedure Performed: EGD Other Other Information/Narrative: PPD1 EGD for GIB/anemia presumed to be UGIB because of NSAID history - EGD showed PEH with mucosal erythema but no blood or ulcers. He got 1U PRBC yesterday and went from hgb 7 to 8.3, but then had more large melanotic BM overnight and this AM hgb down to 5.9. Denies nausea or abdominal pain and has tolerated reg diet with good UOP. Is HD noremal, but complaints of severe lightheadedness. Not anticoagulated, INR 1.2. Review of Systems Status of ROS: 10 or more systems reviewed and unremarkable except as noted in history and below Exam Constitutional normal general appearance, no apparent distress and average body habitus Respiratory normal respiratory effort Cardiovascular normal heart rate noted Gastrointestinal abdomen normal to inspection Extremities normal to inspection Psychiatry oriented x3 Impression/Plan Problem List (1) ABLA (acute blood loss anemia): (2) Lower GI bleed: Plan: 78yoM with active GIB and anemia refractory to transfusion due to ongoing melanotic stools. EGD did not reveal source. Discussed negative EGD findings and indication for colonoscopy in light of continued melena, lightheadedness and transfusion requirement with patient and his . Discussed risks of colonoscopy to include bloating, perforation, bleeding, missed lesion, or need for furher procedures. They understand, questions answered,desire to proceed. - plan for diagnostic colonoscopy tomorrow - bowel prep today - clears until MN, NPO after MN - continue protonix 40mg BID for now - trend HGB/transfuse prn by primary team (hospitalist service) - consent signed Kitty Mclain DO, FACS General Surgeon, [facility]
[2024-03-31] MEDS: PEG 3350/NA SULF,BICARB,CL/KCL 4,000 ML BOTTLE PO ONE (12:33)
[2024-03-31] MEDS: CALCIUM GLUC 1,000MG/50ML-NACL 1,000 MG/50 ML BAG IV ONE (12:39)
[2024-03-31] MEDS: SODIUM/POTASSIUM/MAG SULFATES 354 ML PREP KIT PO SCH ×2 (12:48→18:59)
--- NOTE | 2024-03-31 14:38 | PHARMACY PROGRESS NOTE ---
Best Possible Medication History Admit Date and Time: 03/31/24 1307 Home Medications Medication Instructions Recorded Confirmed Type multivitamin (Multiple Vitamins 1 tab PO DAILY 06/14/18 03/31/24 History tablet) vit C 250 mg-vit E 90 mg-zinc 40 1 tab PO QAM AND QHS 03/01/24 03/31/24 History mg-copper 1 [id number] capsule (PreserVision AREDS-2) meloxicam 15 mg tablet 15 mg PO DAILY #90 tabs 03/05/24 03/31/24 Rx Processed by: Pharmacy Medications reviewed in ED?: No Medication History completed: Yes Patient Interview: Pt unable to participate Secondary Source(s): Caregiver and Insurance records [facility] Statement: As the person ultimately responsible for medication therapy, providers are able to order a medication from an existing home medication list in [facility] via the "Reconcile Routine" prior to Confirmation of that medication by support clerk. Such practice is discouraged except when the physician, in their clinical judgment, deems that a medical need exists for a medication without regard to previous use.
[2024-03-31 17:04] LABS: HCT - HEMATOCRIT 18.4 % (42.0-52.0); HGB - HEMOGLOBIN 5.6 g/dL (14.0-18.0)
[2024-03-31] MEDS: SODIUM CHLORIDE 0.9% 250 ML IV ONE (18:11)
[2024-03-31] MEDS: DEXTROSE 5%-0.9% NACL 1,000 ML IV SCH (18:59)
[2024-03-31 21:51] LABS: HCT - HEMATOCRIT 21.2 % (42.0-52.0)
[2024-03-31 21:53] LABS: HGB - HEMOGLOBIN 6.9 g/dL (14.0-18.0)
[2024-03-31] MEDS ORDERED: iohexoL-300 100 ML VIAL ONE (21:54)
[2024-03-31] MEDS ORDERED: MIDAZOLAM 2 MG/2 ML VIAL ONE (22:32)
[2024-03-31] MEDS ORDERED: fentaNYL 100 MCG/2 ML VIAL ONE ×2 (22:32→23:55)
[2024-03-31] MEDS ORDERED: ceFAZolin 1 GM VIAL ONE (23:10)
[2024-03-31] MEDS ORDERED: metroNIDAZOLE 500 MG/100 ML 500 MG/100 ML BAG ONE (23:11)
--- NOTE | 2024-03-31 23:17 | XRAY Report ---
PROCEDURE: XR Abdomen 1 V INDICATIONS: GI BLEED TECHNIQUE: One view of the abdomen acquired. COMPARISON: None. FINDINGS AND IMPRESSION: Moderately distended loops of bowel are seen throughout the abdomen, mostly colonic. This is favored to be ileus, though partial obstruction is possible. Consider multiphase CT to further evaluate reported GI bleed. Pelvic densities and postsurgical changes. Bilateral hip arthroplasties. Spine degenerative changes. Reviewed by: Jourdan Scherer MD on 03/31/2024 11:15 PM PST Approved by: Jourdan Scherer MD on 03/31/2024 11:15 PM PST Station ID: [id number]
--- NOTE | 2024-03-31 23:19 | XRAY Report ---
PROCEDURE: XR Chest for Line Placement INDICATIONS: CENTRAL LINE TECHNIQUE: One view of the chest was acquired. COMPARISON: 03/30/2024 FINDINGS: Surgical changes and devices: Right shoulder arthroplasty is partially seen. A possible catheter pro jects over the left shoulder, with tip at the thoracic inlet. Lungs and pleura: Low lung volumes. No dense airspace disease or pleural effusion Mediastinum: Normal heart size Bones and chest wall: Degenerative changes IMPRESSION: Possible catheter is seen projecting over left shoulder with tip at the thoracic inlet. Low lung volumes. Reviewed by: Jourdan Scherer MD on 03/31/2024 11:17 PM PST Approved by: Jourdan Scherer MD on 03/31/2024 11:17 PM PST Station ID: [id number]
[2024-03-31] MEDS ORDERED: ROCURONIUM 50 MG/5 ML VIAL ONE (23:20)
[2024-03-31] MEDS ORDERED: PROPOFOL 200 MG/20 ML VIAL IVP ONE (23:55)
[2024-03-31] MEDS ORDERED: LIDOCAINE-PF 2% 10 ML AMP SUBQ ONE (23:55)
[2024-03-31] MEDS ORDERED: HYDROmorphone 1 MG/ML CARPUJECT ONE (23:56)
[2024-04-01] MEDS ORDERED: PHENYLEPHRINE HCL 0.5 MG/5 ML AMPULE ONE (00:51)
[2024-04-01] MEDS ORDERED: ePHEDrine 50 MG/ML VIAL IVP ONE (00:51)
[2024-04-01 00:52] LABS: BASOPHILS % (AUTO) 0.2 %; EOSINOPHILS % (AUTO) 0.1 %; HCT - HEMATOCRIT 24.2 % (42.0-52.0); HGB - HEMOGLOBIN 7.8 g/dL (14.0-18.0); LYMPHOCYTES # (AUTO) 1.3 10^3/uL (1.5-3.5); LYMPHOCYTES % (AUTO) 10.1 %; MEAN CORPUSCULAR HEMOGLOBIN 29.9 pg (27.0-31.0); MEAN CORPUSCULAR HGB CONC 32.2 g/dL (32.0-36.0); MEAN CORPUSCULAR VOLUME 92.7 fL (80.0-94.0); MEAN PLATELET VOLUME 9.2 fL (7.4-11.4); MONOCYTES # (AUTO) 0.8 10^3/uL (0.0-1.0); MONOCYTES % (AUTO) 6.1 %; NEUTROPHILS # (AUTO) 10.6 10^3/uL (1.5-6.6); NEUTROPHILS % (AUTO) 82.9 %; NRBC ABSOLUTE COUNT (AUTO) 0.02 x10^3/uL; NUCLEATED RED BLOOD CELLS AUTO 0.2 /100WBC; PLT - PLATELET COUNT 118 10^3/uL (130-450); RED BLOOD COUNT 2.61 10^6/uL (4.70-6.10); RED CELL DISTRIBUTION WIDTH 15.2 % (12.0-15.0); WHITE BLOOD COUNT 12.8 x10^3/uL (4.8-10.8)
[2024-04-01 00:56] LABS: INR 1.3 (0.8-1.2); PT - PROTHROMBIN TIME 13.9 secs (9.9-12.6)
[2024-04-01] MEDS ORDERED: VASOPRESSIN 20 UNIT/ML VIAL ONE (01:00)
[2024-04-01 01:05] LABS: ALBUMIN 2.2 g/dL (3.2-5.5); ALBUMIN/GLOBULIN RATIO 2.2 (1.0-2.2); ALKALINE PHOSPHATASE 27 IU/L (42-121); ALT ALANINE AMINOTRANSFERASE 10 IU/L (10-60); AST ASPARTATE AMINOTRANSFERASE 13 IU/L (10-42); BILIRUBIN,TOTAL 0.3 mg/dL (0.2-1.0); BUN - BLOOD UREA NITROGEN 36 mg/dL (6-20); CALCIUM 6.8 mg/dL (8.5-10.3); CARBON DIOXIDE - CO2 22 mmol/L (21-32); CHLORIDE 114 mmol/L (101-111); CREATININE 0.9 mg/dL (0.6-1.3); GFR - MDRD 82 (>89); GLUCOSE 242 mg/dL (74-104); IONIZED CALCIUM IF INDICATED YES; POTASSIUM 3.3 mmol/L (3.5-4.5); SODIUM 141 mmol/L (135-145); TOTAL PROTEIN 3.2 g/dL (6.4-8.9)
[2024-04-01] MEDS ORDERED: CALCIUM CHLORIDE ABBOJECT 1000MG/10 ML SYRINGE ONE (01:45)
[2024-04-01] MEDS ORDERED: ROCURONIUM 50 MG/5 ML VIAL ONE (02:31)
--- NOTE | 2024-04-01 02:47 | ANESTHESIA PROCEDURE NOTE ---
Pre-Anesthesia VS, & Labs Diagnosis Surgical Diagnosis:: GI bleed, massive hemorrhage Procedure Procedure: exploratory laparotomy, pending procedures Vitals Vital Signs: Temp Pulse Resp BP Pulse Ox O2 Flow Rate 36.6 C 105 H 16 102/78 90 L 15 03/31/24 22:32 03/31/24 22:32 03/31/24 22:32 03/31/24 22:32 03/31/24 22:32 03/31/24 22:32 NPO NPO: Other Lab Results Current Lab Results: Laboratory Tests 04/01/24 00:40: WBC 12.8 H, RBC 2.61 L, Hgb 7.8 L, Hct 24.2 L, MCV 92.7, MCH 29.9, MCHC 32.2, RDW 15.2 H, Plt Count 118 L, MPV 9.2, Neut # (Auto) 10.6 H, L ymph # (Auto) 1.3 L, Jack # (Auto) 0.8, Eos # (Auto) 0.0, Baso # (Auto) 0.0, Absolute Nucleated RBC 0.02, Nucleated RBC % 0.2, PT 13.9 H, INR 1.3 H, Sodium 141, Potassium 3.3 L, Chloride 114 H, Carbon Dioxide 22, Anion Gap 5.0 L, BUN 36 H, Creatinine 0.9, Estimated GFR (MDRD) 82 L, Glucose 242 H, Calcium 6.8 L, Ionized Calcium YES, Total Bilirubin 0.3, AST 13, ALT 10, Alkaline Phosphatase 27 L, Total Creatine Kinase 52, Troponin I High Sens 4.5, Total Protein 3.2 L, A lbumin 2.2 L, Globulin 1.0 L, Albumin/Globulin Ratio 2.2 03/31/24 21:48: Hgb 6.9 L*, Hct 21.2 L 03/31/24 16:58: Hgb 5.6 L*, Hct 18.4 L* 03/31/24 05:30: WBC 9.8, RBC 1.96 L, Hgb 5.9 L*, Hct 18.5 L*, MCV 94.4 H, MCH 30.1, MCHC 31.9 L, RDW 15.8 H, Plt Count 173, MPV 9.1, Neut # (Auto) 7.5 H, Lymph # (Auto) 1.5, Jack # (Auto) 0.7, Eos # (Auto) 0.1, Baso # (Auto) 0.1, Absolute Nucleated RBC 0.00, Nucleated RBC % 0.0, Sodium 139, Potassium 3.9, Chloride 111, Carbon Dioxide 23, Anion Gap 5.0 L, BUN 50 H, Creatinine 0.8, Estimated GFR (MDRD) 93, Glucose 125 H, Calcium 7.6 L 03/30/24 16:26: Hgb 8.3 L, Hct 26.9 L 03/30/24 11:40: WBC 16.8 H, RBC 2.43 L, Hgb 7.4 L, Hct 23.9 L, MCV 98.4 H, MCH 30.5, MCHC 31.0 L, RDW 14.0, Plt Count 195, MPV 8.6, Neut # (Auto) 13.9 H, Lymph # (Auto) 1.5, Jack # (Auto) 1.1 H, Eos # (Auto) 0.1, Baso # (Auto) 0.1, Absolute Nucleated RBC 0.00, Nucleated RBC % 0.0, PT 13.0 H, INR 1.2, Sodium 143, Potassium 4.4, Chloride 114 H, Carbon Dioxide 26, Anion Gap 3.0 L, BUN 48 H, Creatinine 0.8, Estimated GFR (MDRD) 93, Glucose 117 H, POC Whole Bld Glucose 117, Calcium 8.0 L, Total Bilirubin 0.2, AST 24, ALT 19, Alkaline Phosphatase 40 L, Total Protein 4.3 L, Albumin 3.1 L, Globulin 1.2 L, Albumin/Globulin Ratio 2.6 H, Lipase 27, Blood Type O POSITIVE, Antibody Screen NEGATIVE, Crossmatch IS Only See Detail 04/01/24 00:40 04/01/24 00:40 Meds/Allgy Home Medications Ambulatory Orders Medication Instructions Recorded Confirmed multivitamin (Multiple Vitamins 1 tab PO DAILY 06/14/18 03/31/24 tablet) vit C 250 mg-vit E 90 mg-zinc 40 1 tab PO QAM AND QHS 03/01/24 03/31/24 mg-copper 1 [id number]-acwiuq capsule (PreserVision AREDS-2) meloxicam 15 mg tablet 15 mg PO DAILY #90 tabs 03/05/24 03/31/24 Allergies Allergies Allergy/AdvReac Type Severity Reaction Status Date / Time oxycodone AdvReac Unknown Verified 03/30/24 11:20 beta blockers AdvReac Severe Unknown Uncoded 03/30/24 11:20 [facility] Medical History Medical History (Updated 03/31/24 @ 09:14 by Rasheeda Hale DO) Weight loss Arthropathy of elbow Depression Nummular eczema Bilateral shoulder pain Personal history of colon polyps, unspecified Hypertension Impingement syndrome of right shoulder Surgical History Surgical History History of arthroplasty of left hip History of arthroplasty of right hip Family History Family History Other Family history unknown Social History Social History Smoking Status: Never smoker Second hand tobacco smoke exposure: No Do you dip or chew tobacco?: No Do you vape?: No Patient requests smoking cessation consult: No Initiate information on smoking cessation: No Living arrangement: At home Marital Status: Living Condition: With spouse/s.o. 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 Known occupational exposures/hazards (Current/Previous): None Known Service: Yes Dates of Service: [id number] Are you following a diet prescribed by a doctor: No Are you following a special diet: No POLST Patient has POLST: No POLST Status: Full Code Anesthesia Exam (Expanded) Exam General: Severe distress Dental: WNL Mouth Openin Fingerbreadth Neck Mobility: Normal Mallampati classification: II Respiratory: Lungs clear Cardiovascular: Regular rate Plan Problem List (1) ABLA (acute blood loss anemia): (2) Lower GI bleed: Plan: 78yoM with active GIB and anemia refractory to transfusion due to ongoing melanotic stools. EGD did not reveal source. Discussed negative EGD findings and indication for colonoscopy in light of continued melena, lightheadedness and transfusion requirement with patient and his . Discussed risks of colonoscopy to include bloating, perforation, bleeding, missed lesion, or need for furher procedures. They understand, questions answered,desire to proceed. - plan for diagnostic colonoscopy tomorrow - bowel prep today - clears until MN, NPO after MN - continue protonix 40mg BID for now - trend HGB/transfuse prn by primary team (hospitalist service) - consent signed Kitty Mclain DO, ABHILASH General Surgeon, Charanjit Plan Anesthesia Type: General Consent for Procedure(s) Verified and Reviewed: Yes Code Status: Attempt Resuscitation ASA Classification ASA classification: 5-Moribund Is this case an emergency?: Yes
[2024-04-01] MEDS ORDERED: ePHEDrine 50 MG/ML VIAL IVP PRN (02:51)
[2024-04-01] MEDS ORDERED: ATROPINE ABBOJECT 1 MG/10 ML SYRINGE IVP PRN (02:51)
[2024-04-01] MEDS ORDERED: MORPHINE 2 MG/ML CARPUJECT IVP PRN (02:51)
[2024-04-01] MEDS ORDERED: NALOXONE 0.4 MG/ML VIAL IVP PRN (02:51)
[2024-04-01] MEDS ORDERED: HYDROmorphone 0.5 MG/0.5 ML SYRINGE IVP PRN (02:51)
[2024-04-01] MEDS ORDERED: METOCLOPRAMIDE 10 MG/2 ML VIAL IVP PRN (02:51)
[2024-04-01] MEDS ORDERED: ONDANSETRON 4 MG/2 ML VIAL IVP PRN (02:51)
[2024-04-01] MEDS ORDERED: fentaNYL 100 MCG/2 ML VIAL IVP PRN (02:51)
[2024-04-01] MEDS ORDERED: ceFAZolin 1 GM VIAL ONE (02:55)
[2024-04-01] MEDS ORDERED: BUPIVACAINE 0.25% PF 30 ML VIAL ONE (03:37)
[2024-04-01] MEDS ORDERED: SUGAMMADEX 200 MG/2 ML VIAL IVP ONE (03:41)
[2024-04-01] MEDS: PROPOFOL 1000 MG/100 ML 1,000 MG/100 ML BOTTLE IV SCH (04:23)
[2024-04-01] MEDS: SODIUM CHLORIDE 0.9% 500 ML IV ONE (04:33)
[2024-04-01] MEDS ORDERED: SODIUM CHLORIDE 0.9% 250 ML IV ONE (04:36)
[2024-04-01] MEDS ORDERED: fentaNYL 2,500 MCG/250 ML 2,500 MCG/250 ML BAG IV ONE (04:37)
[2024-04-01] MEDS: fentaNYL 2,500 MCG in SODIUM CHLORIDE 0.9% 200 ML IV SCH (04:39)
--- NOTE | 2024-04-01 04:49 | ANESTHESIA POST OP EVALUATION ---
Anesthesia Post Eval Post Anesthesia Eval Vitals: Last Vital Signs Temp 36.6 C 03/31/24 22:32 Pulse 79 04/01/24 04:20 Resp 16 03/31/24 22:32 BP 102/78 03/31/24 22:32 Pulse Ox 90 L 03/31/24 22:32 O2 Flow Rate 15 03/31/24 22:32 CV Function Including HR & BP: Stable Pain Control: Additional Therapies Ordered (per hospitalist) Nausea & Vomiting: Negative Mental Status: Other (pt sedated) Respiratory Status: Other (pt intubated) Hydration Status: Satisfactory Anesthesia Complications: None
[2024-04-01] MEDS: LACTATED RINGERS 1,000 ML IV SCH (04:57)
[2024-04-01 05:06] LABS: ABG PCO2 34 mmHg (34-45); ABG PH 7.32 (7.35-7.45)
[2024-04-01 05:07] LABS: ABG BASE EXCESS -8.4 mmol/L (-2.0-3.0); ABG MODE OF VENTILATION SIMV; ABG OXYGEN SATURATION 99 % (95-98); ABG PO2 239 mmHg (83-108); ABG TCO2 18.9 mmol/L (21.0-29.0); ALLEN TEST POSITIVE
--- NOTE | 2024-04-01 05:07 | OPERATIVE REPORT ---
Operative Report General Admit Date: 03/31/24 Procedure Data: Operation Date: 03/31/24 23:00 Proposed Procedures p Exploratory Laparotomy(Not Applicable) - Kitty Mclain, DO s Esophagogastroduodenoscopy(Not Applicable) - Kitty Mclain, DO Actual Procedures p Exploratory Laparotomy - Kitty Mclain, DO s Esophagogastroduodenoscopy(Not Applicable) - Kitty Mclain, DO Subtotal colectomy with ileocolic anastomosis Small bowel resection (Jejunectomy, 15cm) with primary anastomosis Gastrotomy and closure Duodenotomy and closure Anesthesia Type General Case Staff Anesthesia Provider: Verónica Duran Assisting Provider: JIM GOULD Case Times Procedure Start: 03/31/24 22:55 Procedure End: 04/01/24 03:48 Time out: 03/31/24 22:54 Class II case, emergency status Pre-Op Diagnosis: Lower GI Bleed, acute blood loss anemia, hemodynamic instabiligy Post Op Diagnosis: bleeding gastritis and duodenitis, bleeding jejunal ulcers, possible LGIB Procedure Note Intake, IV Amount (ml): 2,300 Estimated Blood Loss (ml): 2,500 Output, Urine Amount (ml): 435 Drain/Tube Type: Wesley Garcia round drain (posterior to duodenal closure) and Other (NGT, Orta) Pathology: 1) Subtotal colectomy 3) Jejunum with bleeding ulcer 2) Gastrotomy closure Indications: 78yoM admitted for acute blood loss anemia with active GI bleed and melena., with history of Meloxicam use. Initial evaluation with EGD on day of admission by my partner, given presumed UGIB in setting of NSAID history, was unremarkable: there was no blood, clot or stigmata of bleeding within the esophagus, stomach or duodenum; there was a paraesophageal hernia with patchy superficial erythematous mucosa adjacent, and mild antral gastritis. He was subsequently monitored on the medsurg rivera during bowel prep in anticipation of colonoscopy the following day. In the evening after starting bowel prep, he passed large volume dark red liquid blood per rectum, such that he was within a puddle of liquid blood on his hospital bed. At the same time, he became hemodynamically unstable and hypoxic, without evidence of acute cardiac event on EKG or troponin. The patient was evaluated by CHRISTOPHER Gould and myself, massive transfusion protocol was initiated, and a left subclavian cordis was placed with CXR confirming no pneumothorax. I spoke with Mr. Estevez's by telephone, providing a clinical update. I recommended that we proceed to the operating room emergently, rather than waiting until the morning to complete the planned colonoscopy. I recommended exploratory laparotomy with anticipated colectomy. Given his hemodynamic instability and large volume of rectal bleeding, I did not forsee endoscopic intervention as being feasible or timely enough. I explained the presumptive diagnosis of bleeding from the large bowel given negative EGD, despite not knowing the precise location or source. I explained that the patient was not stable enough to obtain imaging such as CTA Abdomen before surgery. I explained my plan to complete a segmental colectomy if the source were obvious intraoperatively, otherwise plan for total or subtotal colectomy with possible ostomy creation. She provided verbal consent to proceed as described, with interventions as necessary based on intraoperative findings. The patient was then transferred to the operating room emergently. Findings: 1) Large bowel distended with thin dark blood, estimated as >/= 1L intraluminal volume 2) Subtotal colectomy completed, with improved hemodynamics 3) Examination of remainder of abdomen revealed stomach and duodenum containing blood, prompting EGD. 4) EGD revealed stomach and duodenum full of large volume blood and clot, with particular volume of bright clot in gastric cardia. Unable to clear clot or visualize bleeding source endoscopically. 5) Anterior gastrotomy made to explore gastric lumen. Three most cephelad short gastric vessels ligated and one area of bleeding mucosa in gastric cardia over- sewed with 3-0 silk suture, with no recurrence of clot in that area. No ulcer or other discrete site of bleeding identified, despite blood throughout the gastric lumen. 6) Large volume fresh clot massaged from duodenum retrograde into stomach. External duodenum examined without localizing findings. Anterior longitudinal duodenotomy at D2 made for duodenal exploration. No ulcer, mass, or discrete site of duodenal bleeding identified via visual and manual exploration of the duodenal lumen. 7) The patient decompensated again. 8) Careful running of the small bowel, from distal (stapled off terminal ileum) to proximal, with milking of the intraluminal blood in a retrograde direction, revealed a total of 5 mass like actively bleeding ulcers in the proximal jejunum: looking at the external bowel wall they appeared at 1cm diameter purple/ecchymotic areas, not raised; on palpation, they felt polypoid and were fixed to the bowel wall location. The jejunum was opened and the mucosa inverted - they were 1cm heaped up mucosal nodules with a 3-4mm mucosal break at the center with active bleeding from the mucosal break. The mucosal break appeared as a clean laceration, without surrounding ulceration. 9) The jejunal segment involving the three largest nodules was resected, taking 15cm of jejunum. The two others were smaller and 50cm distal along the small bowel. Decision was made not to resect these lesions, out of concern for short gut syndrome in the setting of just having completed a subtotal colectomy. The smaller nodules were tagged with a silk suture, and observed during the remainder of the operation to not be recollecting blood in that area of the lumen. 10) The patient stablized clinically after resecting the jejunum. 11) All areas of stomach and bowel were closed and/or replaced into continuity, see below dictation for details. 12) A CARMEN drain was laid adjacent to the duodenal closure. 13) Intraop blood products: 5U PRBC, 2 FFP, 1 Cryo Complications: none Other Other Information/Narrative: The patient was placed on the operating room table supine with arms out. Endotracheal tube was placed with general anesthesia induction by Verónica Duran CRNA. A orta was placed. MTP was continued. Betadine splash prep was used on the abdomen, followed by sterile draping. A timeout was performed with all team members. Ancef and flagyl were administered. A generous midline incision was made sharply and the peritoneum was entered with metzenbaum scissors; the fascia was then opened vertically with cautery. Upon entry to the peritoneum, there was no free fluid or blood, the bowel wall appeared grossly well-perfused. The bookwalter retractor system was placed. Attention was immediately directed to the large bowel. It was noted to be distended to roughly 7-8cm diameter and filled with thin dark blood throughout its entirety. In inspecting the colon there was no localizing clues that the bleeding was from the right vs left side of the colon. Decision was made to proceed with subtotal colectomy as anticipated. Using cautery and the Ligasure device, the white line of Toldt was taken down to mobilize the left colon. A point of distal transection at approximately the pelvic brim was chosen, and diveded with IBAN stapler with a blue load. The ligasure was used to divided the mesentery of the sigmoid and descending colon proximal to the transection. As the left colon was medialized and resected, the left ureter was seen lying posterior to the dissection, untouched. The hepatic flexure was positioned anterior and superior to the spleen. Attention was directed to the midpoint of the transverse colon. The middle colic vessels were identified and triply burned and divided with the ligasure. The lesser sac was entered and the distal transverse colon was dissected free using the ligasure, progressing toward the hepatic flexure. Then with great care not to tear any structures of the left upper quadrant or to disrupt the underlying pancreas, the hepatic flexure was mobilized and resected. The dissection then proceeded proximally, taking down the proximal tranverse colon and hepatic flexure using cautery and ligasure device, as well as careful blunt dissection behind the hepatic flexure. The right white line of toldt was taken down, and the right meso colon divided with the ligasure. The ileocolic vessels were suture ligated with 2-0 silk suture. The terminal ileum was transected with a blue load IBAN approximately 10cm proximal to the ileocecal valve. The subtotal colon specimen was passed off the field for pathology, it was not opened in vivo or ex vivo to inspect the lumen. The patient's hemodynamics had improved at the conclusion of subtotal colectomy. Attention was directed to exploring the rest of the abdomen at this time. It was noted that the stomach and duodenum appeared to contain blood as well. Decision was made to repeat the EGD intraoperatively, for further evaluation. The esoph srinivasan appeared normal. Upon entering the stomach, the gastric lumen was coated in blood at all locations, with a collection of blood and clot within the gastric cardia. This was irrigated and suctioned, but I was unable to clear clot or visualize bleeding source endoscopically. The duodenum was entered and likewise coated in blood and clot seen, without site of active bleeding identified. I did not feel my endoscopic evaluation was providing conclusive findings as to the source of additional bleeding. I made an anterior gastrotomy to further explor the gastric lumen. There was some fresh blood from an area of mucosa in the cardia that I oversewed with 3-0 silk figure of eight suture, in addition to ligating the three most cephelad short gastric vessels with the ligasure device. After this, the fresh bleeding in the gastric cardia stopped and no further clot accumulated there. Throughout the gastric lumen, there was no ulcer or other discrete site of bleeding identified. I then focused my attention of the duodenum, milking the contents retrograde into the stomach where I could visualize them through the gastrotomy. The duodenal contents were again blood with fresh clots. I could not be sure that there was not an active source of bleeding in the duodenum, and an anterior duodenotomy in the second portion of the duodenum was made longitudially. Through the duodenotomy I everted the duodenal mucosa and palpated the lumen, identifying no masses, ulcer, or discreet sites of active bleeding. At this point the patient began decompensating again, requiring further blood product resuscitation and vasopressor support. I then directed my attention to a thorough evaluation of the small bowel, currently in discontinuity with a stapled off terminal ileum. I cut the corner off of the staple line to evaluate the luminal contents of the ileum, which was again large volume of clot. I ran the small bowel from distal to proximal, milking the intraluminal blood in a retrograde direction. The ileum and distal jejunum appeared normal. In this manner, upon reaching the proximal jejunum, I identified 5 discrete intraluminal nodules: looking at the external bowel wall they appeared as 1cm diameter purple/ecchymotic areas, not raised beyond the bowel wall; on palpation, they felt polypoid and were fixed to the bowel wall location. I made a longitudinal jejunotomy and the mucosa inverted. The nodules appeared as ~1cm heaped up mucosal smooth masses, with a 3-4mm mucosal break at the center apex that was active bleeding; the mucosal break appeared as a clean laceration, without surrounding ulceration. The jejunal segment involving the three largest nodules was resected using IBAN stapler with blue load at the distal and then proximal extent, taking approximately 15cm of jejunum. The two nodules were smaller and about 50cm distal to the resected segment. Decision was made not to resect these lesions, out of concern for short gut syndrome in the setting of just having completed a subtotal colectomy. The smaller nodules were tagged with a silk suture, and observed during the remainder of the operation to not be recollecting blood in that area of the lumen. Following resection of the jejunal segment containing bleeding nodules, the patient clinically stablized, and required no further blood product or vasopressor. An NGT was passed into the stomach. The gastrotomy was closed with Laparoscopic IBAN stapler with green loads x3. The suture line was imbricated along its entire length with 3-0 silk lembert sutures. The longitudinal duodenotomy was closed transversely in two layers with a running 3-0 vicryl suture, followed by 3-0 silk lembert sutures. A 19F round drain was laid adjacent to and posterior to the closure, brought out right lateral to the midline incision, and secured with 2-0 nylon at the skin. Omentum was pexied to lay over the staple line in a pseudo-dee patch manner. A [id number] functional end-to-end jejuno-jejunostomy stapled primary anastomosis was created by using a 75mm blue load IBAN staplers to create a common channel. A ring forcep was used to inspect the staple line intraluminally, visualizing no bleeding. The common channel was seen to be widely patent. A non-cutting stapler was used to close the common enterotomy, and this was imbricated including the overlapping staple lines. The mesenteric defect was closed with running 2-0 silk suture. A [id number] functional end-to-end ileocolonic stapled primary anastomosis was created between the terminal ileum and sigmoid colon by using a 75mm blue load IBAN staplers to create a common channel. A ring forcep was used to inspect the staple line intraluminally, visualizing no bleeding. The common channel was seen to be widely patent. A non-cutting stapler was used to close the common enterotomy, and this was imbricated including the overlapping staple lines. The mesenteric defect was closed with running 2-0 silk suture, preventing the small bowel from herniating posterior to the anastomosis. The entirety of the intraperitoneal GI tract was run a final time, ensuring closure and anastomosis of all portions of the GI tract opened for intraluminal exploration of GI bleeding sources. The abdomen was irrigated with 5L of warm normal saline. Adequate hemostasis was visualized. A sponge and needle count was correct. The bookwalter was removed. The midline fascia was closed with looped 0 PDS running suture x2. The subcutaneous tissues were irrigated. Local was injected. The skin was closed with prabhjot, and an aquacel dressing was applied. The patient was left intubated, the NGT was secured, and the orta was left in place. An XRAY was taken before leaving the OR to confirm the sponge count, given the emergent start to the case; no retained foreign objects were identified within the operative field. The patient was taken to the ICU in improved condition. I updated the patients in person on the intraoperative findings immediately after settling the patient into the ICU; she had arrived to the hospital during the operation and received at least two nursing updates during the case. Kitty Mclain DO, ABHILASH General Surgeon, Charanjit
[2024-04-01 05:08] LABS: ABG RESPIRATORY RATE 14 b/min
[2024-04-01 05:32] LABS: BASOPHILS % (AUTO) 0.2 %; HCT - HEMATOCRIT 36.2 % (42.0-52.0); HGB - HEMOGLOBIN 12.1 g/dL (14.0-18.0); LYMPHOCYTES # (AUTO) 1.1 10^3/uL (1.5-3.5); LYMPHOCYTES % (AUTO) 6.5 %; MEAN CORPUSCULAR HEMOGLOBIN 30.9 pg (27.0-31.0); MEAN CORPUSCULAR HGB CONC 33.4 g/dL (32.0-36.0); MEAN CORPUSCULAR VOLUME 92.6 fL (80.0-94.0); MEAN PLATELET VOLUME 9.6 fL (7.4-11.4); MONOCYTES # (AUTO) 1.2 10^3/uL (0.0-1.0); MONOCYTES % (AUTO) 6.9 %; NEUTROPHILS # (AUTO) 15.1 10^3/uL (1.5-6.6); NEUTROPHILS % (AUTO) 86.1 %; NRBC ABSOLUTE COUNT (AUTO) 0.03 x10^3/uL; NUCLEATED RED BLOOD CELLS AUTO 0.2 /100WBC; PLT - PLATELET COUNT 111 10^3/uL (130-450); RED BLOOD COUNT 3.91 10^6/uL (4.70-6.10); RED CELL DISTRIBUTION WIDTH 15.2 % (12.0-15.0); WHITE BLOOD COUNT 17.6 x10^3/uL (4.8-10.8)
[2024-04-01 05:37] LABS: INR 1.1 (0.8-1.2); PT - PROTHROMBIN TIME 12.6 secs (9.9-12.6)
[2024-04-01 05:45] LABS: CALCIUM 7.5 mg/dL (8.5-10.3); POTASSIUM 3.6 mmol/L (3.5-4.5)
[2024-04-01 05:49] LABS: CALCIUM, IONIZED 1.21 mmol/L (1.09-1.30); VBG PH 7.257 (7.31-7.41)
[2024-04-01 06:49] LABS: CALCIUM 6.9 mg/dL (8.5-10.3); CREATININE 0.9 mg/dL (0.6-1.3); POTASSIUM 3.3 mmol/L (3.5-4.5)
--- NOTE | 2024-04-01 08:29 | PROVIDER PROGRESS NOTE ---
Subjective Prog Note Date Prog Note Date: 04/01/24 Prog Note Time: 08:18 Subjective Subjective: This is a 78-year-old male with a past medical history of bone and joint discomfort, on meloxicam greater than 2 years, who presents to the ER for new onset of lower GI bleed.Patient states that his first bloody watery bowel movement was yesterday, which continued this morning. Patient denies chest pain, Palpitation, shortness of breath or abdominal pain or palpitation. Patient states that he Stephens weak on arrival but this has Now resolved. Patient received Protonix and 1 unit of RBCs in the ER. ER physician consulted surgery for EGD. Surgery plan for EGD this afternoon. Laboratory values indicated reactive leukocytosis of 16.8, hemoglobin 7.4 and grossly normal chemistry. Patient is full code 03/31/2024: Status post EGD, 03/30/2024, with no findings of active bleeding. Patient had another overnight event of bleeding per rectum. Patient feels weak and at times dizzy. Patient scheduled for colonoscopy today. 04/01/2024: Patient had a massive GI bleed during the nighttime. He was taken to the OR for emergent Abdominal surgery (Please see surgical report). Patient underwent a massive infusion protocol, return to the ICU intubated. Current Medications Current Medications Current Medications: Current Medications Generic Name Dose Route Start Last Admin Trade Name Freq PRN Reason Stop Dose Admin Acetaminophen 650 mg 03/30/24 13:11 Acetaminophen 325 Mg Tablet PO Q6H PRN Pain or Fever > 38C (100.4F) Atropine Sulfate 0.5 mg 04/01/24 02:51 Atropine Abboject 1 Mg/10 Ml Syringe IVP 04/02/24 02:51 Q5M PRN Bradycardia Ephedrine Sulfate 10 mg 04/01/24 02:51 Ephedrine 50 Mg/Ml Vial IVP 04/02/24 02:51 Q5M PRN HYPOTENSION Fentanyl 25 - 50 mcg 04/01/24 02:51 Fentanyl 100 Mcg/2 Ml Vial IVP 04/02/24 02:51 Q5M PRN BREAKTHROUGH PAIN (2nd Choice) Hydromorphone HCl 0.5 mg 03/30/24 16:38 Hydromorphone 0.5 Mg/0.5 Ml Syringe IVP Q2H PRN Pain 8 to 10 Hydromorphone HCl 0.2 - 0.6 mg 04/01/24 02:51 Hydromorphone 0.5 Mg/0.5 Ml Syringe IVP 04/02/24 02:51 Q5M PRN PAIN (First Choice) Dextrose/Sodium Chloride 1,000 mls @ 75 mls/hr 03/31/24 19:00 04/01/24 04:00 D5ns IV Infused .[id number] RONIT Infusion Propofol 1,000 mg in 100 mls @ 5.37 mls/hr 04/01/24 05:00 04/01/24 05:00 Diprivan IV 15 mcg/kg/min .[id number] RONIT 8.06 mls/hr Titration Protocol 10 MCG/KG/MIN Fentanyl 2,500 mcg/ Sodium 250 mls @ 8.95 mls/hr 04/01/24 05:00 04/01/24 06:00 Chloride IV 1 mcg/kg/hr .[id number] RONIT 8.95 mls/hr Titration Protocol 1 MCG/KG/HR Metronidazole 500 mg in 100 mls @ 100 mls/hr 04/01/24 12:00 Flagyl 500 Mg/100 Ml IV Q8H RONIT Piperacillin Sod/Tazobactam 100 mls @ 200 mls/hr 04/01/24 09:00 Sod 3.375 gm/ Sodium Chloride IV Q6H RONIT Metoclopramide HCl 10 mg 04/01/24 02:51 Metoclopramide 10 Mg/2 Ml Vial IVP Q6HR PRN N/V not relieved by Zofran Morphine Sulfate 2 - 4 mg 04/01/24 02:51 Morphine 2 Mg/Ml Carpuject IVP 04/02/24 02:51 Q5M PRN PAIN (3rd Choice) Naloxone HCl 0.1 mg 04/01/24 02:51 Naloxone 0.4 Mg/Ml Vial IVP 04/02/24 02:51 Q2M PRN RESP RATE <8 Ondansetron HCl 4 mg 03/30/24 16:38 Ondansetron Odt 4 Mg Tablet TL Q6HR PRN Nausea / Vomiting Ondansetron HCl 4 mg 04/01/24 02:51 Ondansetron 4 Mg/2 Ml Vial IVP 04/02/24 02:51 ONCE PRN N/V (First Choice) Pantoprazole Sodium 40 mg 03/30/24 21:00 03/31/24 20:20 Pantoprazole 40 Mg Vial IV 40 mg BID RONIT Administration Sodium Chloride 10 ml 03/30/24 16:38 Sodium Chloride Flush 0.9% 10 Ml Syringe IVP PRN PRN NEEDED PER PROVIDER ORDERS Sodium Chloride 10 ml 03/30/24 17:00 04/01/24 04:42 Sodium Chloride Flush 0.9% 10 Ml Syringe IVP Not Given 0100,0900,1700 RONIT Sodium Sulfate/Potass Sulf/Mag Sulf 354 ml 03/31/24 18:00 03/31/24 18:59 Sodium/Potassium/Mag Sulfates 354 Ml Prep Kit PO 354 ml PRN RONIT Administration Objective Vital Signs/Intake & Output Reviewed Vital Signs: Yes Vital Signs: Vital Signs x48h Temp Pulse Pulse Resp BP Pulse Ox 04/01/24 08:00 87 16 83/56 L 100 04/01/24 07:42 87 04/01/24 07:41 87 14 112/81 100 04/01/24 07:00 88 14 94/64 100 04/01/24 06:00 88 14 102/69 100 04/01/24 05:45 87 92/72 04/01/24 05:30 87 99/73 04/01/24 05:15 86 106/74 04/01/24 05:00 83 14 122/80 97 04/01/24 04:50 82 118/83 04/01/24 04:40 81 123/76 04/01/24 04:30 81 106/79 04/01/24 04:20 79 04/01/24 04:10 37.0 C 81 16 117/70 93 Intake & Output: Intake & Output 03/29/24 03/30/24 03/31/24 04/01/24 23:59 23:59 23:59 23:59 Intake Total 900 / 900 2370 / 2370 2972 / 2972 Output Total 500 / 500 2425 / 2425 603 / 603 Balance 400 / 400 -55 / -55 2369 / 2369 Weight (kg) 89.5 kg Objective General Appearance: positive No acute distress and Other (Patient is sedated and intubated) Eyes Bilateral: positive Normal inspection and PERRL ENT: positive ENT inspection nml and Pharynx nml Neck: positive Nml inspection and Trachea midline Respiratory: positive Chest non-tender, No respiratory distress and Other (On vent support) Cardiovascular: positive Regular rate & rhythm and No murmur Abdomen: positive Non-tender, No organomegaly and Other (Status post abdominal surgery, midline incision, CARMEN drain present) Skin: positive Color nml and No rash Extremities: positive Non-tender and Full ROM Neurologic/Psychiatric: positive Other (Patient intubated and sedated) Lab Results 04/01/24 05:15 04/01/24 06:13 Other Labs: Lab Results x24hrs 04/01/24 04/01/24 04/01/24 Range/Units 06:13 05:15 04:55 WBC 17.6 H (4.8-10.8) x10^3/uL RBC 3.91 L (4.70-6.10) 10^6/uL Hgb 12.1 L (14.0-18.0) g/dL Hct 36.2 L (42.0-52.0) % MCV 92.6 (80.0-94.0) fL MCH 30.9 (27.0-31.0) pg MCHC 33.4 (32.0-36.0) g/dL RDW 15.2 H (12.0-15.0) % Plt Count 111 L (130-450) 10^3/uL MPV 9.6 (7.4-11.4) fL Neut # (Auto) 15.1 H (1.5-6.6) 10^3/uL Lymph # (Auto) 1.1 L (1.5-3.5) 10^3/uL Evans # (Auto) 1.2 H (0.0-1.0) 10^3/uL Eos # (Auto) 0.0 (0.0-0.7) 10^3/uL Baso # (Auto) 0.0 (0.0-0.1) 10^3/uL Absolute Nucleated RBC 0.03 x10^3/uL Nucleated RBC % 0.2 /100WBC PT (9.9-12.6) secs INR (0.8-1.2) Fibrinogen (220-496) mg/dL Bld Gas Analysis Time 0501 Sample Site RIGHT BRACHIAL ABG pH 7.32 L (7.35-7.45) ABG pCO2 34 (34-45) mmHg ABG pO2 239 H (83-108) mmHg ABG HCO3 17.8 L (22.0-26.0) mmol/L ABG Total CO2 18.9 L (21.0-29.0) mmol/L ABG O2 Saturation 99 H (95-98) % ABG Base Excess -8.4 L (-2.0-3.0) mmol/L Carlos A Test POSITIVE VBG pH 7.257 L (7.31-7.41) Respiration Rate 14 b/min O2 Delivery Device VENTILATOR Vent Mode SIMV FiO2 60.00 Tidal Volume 500 mL PEEP 5 cmH2O Pressure Support Vent 12 cmH2O Sodium 142 141 (135-145) mmol/L Potassium 3.3 L 3.6 (3.5-4.5) mmol/L Chloride 114 H 115 H (101-111) mmol/L Carbon Dioxide 24 20 L (21-32) mmol/L Anion Gap 4.0 L 6.0 (6-13) BUN 35 H 31 H (6-20) mg/dL Creatinine 0.9 1.0 (0.6-1.3) mg/dL Estimated GFR (MDRD) 82 L 72 L (>89) Glucose 234 H 188 H (74-104) mg/dL Lactic Acid (0.5-2.2) mmol/L Calcium 6.9 L 7.5 L (8.5-10.3) mg/dL Ionized Calcium 1.21 Total Bilirubin (0.2-1.0) mg/dL AST (10-42) IU/L ALT (10-60) IU/L Alkaline Phosphatase (42-121) IU/L Total Creatine Kinase (30-223) IU/L Troponin I High Sens 4.6 (2.3-19.7) ng/L Total Protein (6.4-8.9) g/dL Albumin (3.2-5.5) g/dL Globulin (2.1-4.2) g/dL Albumin/Globulin Ratio (1.0-2.2) Nasal Screen MRSA (PCR) (NEGATIVE) Blood Type Antibody Screen Crossmatch IS Only 04/01/24 04/01/24 03/31/24 Range/Units 04:15 00:40 21:48 WBC 12.8 H (4.8-10.8) x10^3/uL RBC 2.61 L (4.70-6.10) 10^6/uL Hgb 7.8 L 6.9 L* (14.0-18.0) g/dL Hct 24.2 L 21.2 L (42.0-52.0) % MCV 92.7 (80.0-94.0) fL MCH 29.9 (27.0-31.0) pg MCHC 32.2 (32.0-36.0) g/dL RDW 15.2 H (12.0-15.0) % Plt Count 118 L (130-450) 10^3/uL MPV 9.2 (7.4-11.4) fL Neut # (Auto) 10.6 H (1.5-6.6) 10^3/uL Lymph # (Auto) 1.3 L (1.5-3.5) 10^3/uL Evans # (Auto) 0.8 (0.0-1.0) 10^3/uL Eos # (Auto) 0.0 (0.0-0.7) 10^3/uL Baso # (Auto) 0.0 (0.0-0.1) 10^3/uL Absolute Nucleated RBC 0.02 x10^3/uL Nucleated RBC % 0.2 /100WBC PT 13.9 H (9.9-12.6) secs INR 1.3 H (0.8-1.2) Fibrinogen (220-496) mg/dL Bld Gas Analysis Time Sample Site ABG pH (7.35-7.45) ABG pCO2 (34-45) mmHg ABG pO2 (83-108) mmHg ABG HCO3 (22.0-26.0) mmol/L ABG Total CO2 (21.0-29.0) mmol/L ABG O2 Saturation (95-98) % ABG Base Excess (-2.0-3.0) mmol/L Carlos A Test VBG pH (7.31-7.41) Respiration Rate b/min O2 Delivery Device Vent Mode FiO2 Tidal Volume mL PEEP cmH2O Pressure Support Vent cmH2O Sodium 141 (135-145) mmol/L Potassium 3.3 L (3.5-4.5) mmol/L Chloride 114 H (101-111) mmol/L Carbon Dioxide 22 (21-32) mmol/L Anion Gap 5.0 L (6-13) BUN 36 H (6-20) mg/dL Creatinine 0.9 (0.6-1.3) mg/dL Estimated GFR (MDRD) 82 L (>89) Glucose 242 H (74-104) mg/dL Lactic Acid (0.5-2.2) mmol/L Calcium 6.8 L (8.5-10.3) mg/dL Ionized Calcium YES Total Bilirubin 0.3 (0.2-1.0) mg/dL AST 13 (10-42) IU/L ALT 10 (10-60) IU/L Alkaline Phosphatase 27 L (42-121) IU/L Total Creatine Kinase 52 (30-223) IU/L Troponin I High Sens 4.5 (2.3-19.7) ng/L Total Protein 3.2 L (6.4-8.9) g/dL Albumin 2.2 L (3.2-5.5) g/dL Globulin 1.0 L (2.1-4.2) g/dL Albumin/Globulin Ratio 2.2 (1.0-2.2) Nasal Screen MRSA (PCR) NEGATIVE (NEGATIVE) Blood Type Antibody Screen Crossmatch IS Only 03/31/24 03/31/24 03/30/24 Range/Units 16:58 05:15 11:40 WBC (4.8-10.8) x10^3/uL RBC (4.70-6.10) 10^6/uL Hgb 5.6 L* (14.0-18.0) g/dL Hct 18.4 L* (42.0-52.0) % MCV (80.0-94.0) fL MCH (27.0-31.0) pg MCHC (32.0-36.0) g/dL RDW (12.0-15.0) % Plt Count (130-450) 10^3/uL MPV (7.4-11.4) fL Neut # (Auto) (1.5-6.6) 10^3/uL Lymph # (Auto) (1.5-3.5) 10^3/uL Evans # (Auto) (0.0-1.0) 10^3/uL Eos # (Auto) (0.0-0.7) 10^3/uL Baso # (Auto) (0.0-0.1) 10^3/uL Absolute Nucleated RBC x10^3/uL Nucleated RBC % /100WBC PT 12.6 (9.9-12.6) secs INR 1.1 (0.8-1.2) Fibrinogen 242 (220-496) mg/dL Bld Gas Analysis Time Sample Site ABG pH (7.35-7.45) ABG pCO2 (34-45) mmHg ABG pO2 (83-108) mmHg ABG HCO3 (22.0-26.0) mmol/L ABG Total CO2 (21.0-29.0) mmol/L ABG O2 Saturation (95-98) % ABG Base Excess (-2.0-3.0) mmol/L Carlos A Test VBG pH (7.31-7.41) Respiration Rate b/min O2 Delivery Device Vent Mode FiO2 Tidal Volume mL PEEP cmH2O Pressure Support Vent cmH2O Sodium (135-145) mmol/L Potassium (3.5-4.5) mmol/L Chloride (101-111) mmol/L Carbon Dioxide (21-32) mmol/L Anion Gap (6-13) BUN (6-20) mg/dL Creatinine (0.6-1.3) mg/dL Estimated GFR (MDRD) (>89) Glucose (74-104) mg/dL Lactic Acid 3.5 H* (0.5-2.2) mmol/L Calcium (8.5-10.3) mg/dL Ionized Calcium Total Bilirubin (0.2-1.0) mg/dL AST (10-42) IU/L ALT (10-60) IU/L Alkaline Phosphatase (42-121) IU/L Total Creatine Kinase (30-223) IU/L Troponin I High Sens (2.3-19.7) ng/L Total Protein (6.4-8.9) g/dL Albumin (3.2-5.5) g/dL Globulin (2.1-4.2) g/dL Albumin/Globulin Ratio (1.0-2.2) Nasal Screen MRSA (PCR) (NEGATIVE) Blood Type O POSITIVE Antibody Screen NEGATIVE Crossmatch IS Only See Detail Assessment/Plan Problem List (1) ABLA (acute blood loss anemia): Impression: Status post EGD day 1. EGD indicates no active bleeding, Indications of esophagitis. Status post Day 1 abdominal surgery with iliosacral anastomosis, partial jejenum resection and near total colectomy on 04/01/2024 Surgery is following. Continue to trend H&H, Transfuse RBC as needed. Currently patient is hemodynamically stable, Off pressor support Goal: MAP of 65, or SBP greater than 95 (2) Lower GI bleed: Impression: Patient status post EGD 03/31/2024 with no indication of active bleed. Patient had a massive lower GI hemorrhage on 04/01/2024. Was taken to the OR with for abdominal surgery. Please see above Surgery is following (3) Leukocytosis: Impression: Increased leukocytosis of 17.6 from previous day. ? Reactive versus intra-abdominal infection. ABX: Change cephalexin to Zosyn Day 1. (4) Joint pain: Impression: Patient has chronic joint pain for which he takes meloxicam at night. Stop meloxicam Tylenol and Dilaudid for pain control Recommendation to follow-up with licensed reactor operator as an outpatient. (5) Respiratory failure: Impression: Status post extensive abdominal surgery day 1. Continue lung protective ventilation Plan on SAT/SBT tomorrow.
[2024-04-01] MEDS: PIPERACILLIN/TAZOBACTAM 3.375 GM in SODIUM CHLORIDE 0.9% MINIBAG 100 ML IV ONE (08:54)
[2024-04-01] MEDS ORDERED: ceFAZolin (2G) 2 GM in SODIUM CHLORIDE 0.9% MINIBAG 100 ML IV SCH (11:00)
[2024-04-01] MEDS: metroNIDAZOLE 500 MG/100 ML 500 MG/100 ML BAG IV SCH (11:45)
--- NOTE | 2024-04-01 11:54 | XRAY Report ---
PROCEDURE: XR Abdomen 1 V INDICATIONS: count xray TECHNIQUE: One view of the abdomen acquired. COMPARISON: None. FINDINGS: Surgical changes and devices: A gastric tube is seen, the tip likely within the proximal duodenum. Th ere is a right-sided drain seen. Right lower quadrant prabhjot are seen. There is also midline skin prabhjot seen. Bilateral hip arthroplasty hardware can be seen. No suspicious radiopaque foreign bodies are seen. Bowel: Bowel gas pattern is normal. Soft tissues: No suspicious abdominal calcifications. Visualized solid organ contours appear normal in size. Bones: No suspicious bony lesions. IMPRESSION: Postoperative changes are seen, without a suspicious foreign body seen. Note: No significant discrepancy from the preliminary report. Reviewed by: Chris Wall MD on 04/01/2024 10:52 AM [facility] Approved by: Chris Wall MD on 04/01/2024 10:52 AM [facility] Station ID: [id number]
[2024-04-01 12:28] LABS: HCT - HEMATOCRIT 35.8 % (42.0-52.0); HGB - HEMOGLOBIN 11.7 g/dL (14.0-18.0)
[2024-04-01] MEDS: PIPERACILLIN/TAZOBACTAM 3.375 GM in SODIUM CHLORIDE 0.9% MINIBAG 100 ML IV SCH (13:01)
[2024-04-01 16:27] LABS: ABG PCO2 31 mmHg (34-45); ABG PH 7.34 (7.35-7.45); ABG PO2 53 mmHg (83-108); ABG TCO2 18.2 mmol/L (21.0-29.0)
[2024-04-01 16:28] LABS: ABG BASE EXCESS -8.7 mmol/L (-2.0-3.0); ABG MODE OF VENTILATION SIMV; ABG RESPIRATORY RATE 14 b/min; ALLEN TEST POSITIVE
[2024-04-01 16:33] LABS: ABG OXYGEN SATURATION 87 % (95-98)
[2024-04-01] MEDS ORDERED: ACETAMINOPHEN 1,000 MG/100 ML 1,000 MG/100 ML BAG IV PRN (16:36)
--- NOTE | 2024-04-01 17:17 | PROVIDER PROGRESS NOTE ---
Subjective General Admit Date: 03/31/24 Procedure Date: 04/01/24 Post Op Days: 0 Procedure Performed: EGD (03/30) ExLap/subtotal colectomy/SBR (04/01) Other Other Information/Narrative: Yesterday evening patient had acute decompensation with large volume hemorrhage per rectum, hemodynamic instability and hypoxia. Went to OR emergently with MTP activation, rather than continuing with bowel prep and planned colonoscopy this AM. See operative report for details involving pressor support, 5U PRBC, 2U FFP and 1U cryo intraoperatively. By conclusion of operation patient was off pressors, transferred to ICU intubated. Since arriving to ICU at ~0430am, he has not required further pressors. On fent/propofol gtt with soft pressurs that improve when sedation lightened. He has not required further transfusion. 600cc pale yellow urine, 300cc dark old blood from NGT and one BM of ~40cc old blood. CARMEN drain (adjacent to duodenal closure) ssf without bile. With sedation lightened he is GCS 11T, writing to communicate. Denies pain. Endorses feeling thirsty and too warm beneath blankets. is at bedside this afternoon, relieved to see him alert. Wound Assessment Wound/Incisions: positive Dressing dry and intact Drain Type: CARMEN, adjacent to duodenal closure Drain Output Description: ssf Approximate mls Output: [ intraoperative irrigation voluem ] Review of Systems Status of ROS: 10 or more systems reviewed and unremarkable except as noted in history and below Exam Exam ETT NGT Left subclavian cordis CARMEN drain RUQ Orta Constitutional average body habitus intubated, GCS 11T Eyes EOMs intact bilaterally Neck/C-Spine visual inspection normal Respiratory breath sounds equal bilaterally Cardiovascular normal heart rate noted Gastrointestinal soft, nontender. Midline wound stapled with aquacel dressing - clean and dry. CARMEN drain RUQ (adjacent to duodenal closure) ssf. Genitourinary urine light yellow Extremities anasarca 2/2 massive transfusion and intraoperative resuscitation Psychiatry cooperative Skin improved pallor from preop ABX Reporting Has patient been on IV antibiotics over the past 48 hours?: Yes Impression/Plan Problem List (1) ABLA (acute blood loss anemia): (2) Idiopathic small intestinal ulcers: Plan: 78yoM admitted with active GIB and anemia refractory to transfusion, not anticoagulated. Initially presumed to be UGIB due to h/o Meloxicam use. 03/30: EGD did not reveal source - very mild antral gastritis and few patchy erythematous areas in fundus/cardia adjacent to a paraesophageal hernia, but no active bleeding or old blood visualized in stomach or duodenum. 03/31: Presumed LGIB given unremarkable EGD findings in setting of active rectal bleeding, planned bowel prep/colonoscopy for 04/01. *Acute hemodynamic and hypoxic decompensation late evening resulting in MTP and emergent operation overnight. 04/01: Exploratory laparotomy, subtotal colectomy with ileocolic anastomosis [ colon full of >1L blood], small bowel resection with primary anastomosis [15cm jejunum with bleeding ulcerated nodules], anterior gastrotomy [stapled closure] and anterior duodenotomy [suture closure] done for exploration in identification of bleeding source. Total 3U PRBC preop, 5U PRBC/2U FFP/1U cryo intraop. GIB source: Definite bleeding from jejunal ulcers. Appearance of diffuse bleeding gastritis and duodenitis intraoperatively, but could not r/o retrograde blood collecting from jejunum. Fresh clot in gastric cardia that seemed to resolve with ligation of most cephalad short gastrics. Unknown if additional LGIB source, pending pathology review of subtotal colectomy specimen. 04/01 POD 0: Stable by end of OR, and no further pressor or transfusion requirement since return to ICU. 300cc old blood from NGT and ~40cc old blood per rectum since OR. Clinically consistent with hemorrhage control. Hgb 12 postop --> 11.7 this afternoon. - Vent mamagement per ICU, SBT and extubation when able, monitoring for pulmonary complications of large volume resuscitation - sedation with fentanyl/propofol - additional pain control with scheduled IV tylenol and prn IV dilaudid - HD monitoring in ICU - Protonix 40mg BID IV - NGT to LWIS - Strict NPO --- given total of 4 staple/suture lines, including gastrotomy closure, duodenal closure, jejunal anastomosis and ileocolic anastomosis, would plan for UGI on POD3 at earliest before feeding, to ensure no duodenal leak. - OK with starting PPN sooner than later, Nutrition consult - continue CARMEN drain in RUQ, posterior to duodenal closure, to monitor for bile leak - Aquacel dressing down on POD5 or sooner if clinical concern. Skin prabhjot out [id number] pending clinical course - continue orta while intubated - Trend hgb/electrolytes closely in early postop period - empiric broad spectrum abx given GI tract opened in multiple locations during emergent surgery - follow up on jejunal and colonic pathology reports, as well as EGD biopsies (rare causes of jejunal ulceration include celiac dz and GI lymphomas) - VTE ppx with SCDs for now, will add lovenox POD1-2 if no sign of rebleed Hospital service is Primary Team. Surgical care will sign out to Dr. Miller on 04/02/24. Kitty Mclain DO, FACS General Surgeon, [facility] (3) Lower GI bleed: (4) Leukocytosis: (5) Joint pain: (6) Respiratory failure:
[2024-04-01 17:38] LABS: HCT - HEMATOCRIT 32.8 % (42.0-52.0)
[2024-04-01 17:41] LABS: VBG PCO2 29.1 mmHg (41-51); VBG PH 7.358 (7.31-7.41); VBG PO2 106.2 mmHg (25-47); VBG TOTAL CO2 17.4 mmol/L (24-29)
[2024-04-01 17:42] LABS: VBG BASE EXCESS -9.2 mmol/L (-2 - +2)
[2024-04-01] MEDS: ACETAMINOPHEN 1,000 MG/100 ML 1,000 MG/100 ML BAG IV SCH (18:02)
--- NOTE | 2024-04-01 18:10 | PROCEDURE REPORT ---
Hospitalist Procedure Note Procedure Note Procedure Note: Procedure: Placement of percutaneously inserted central venous catheter Indication: Hemodynamic instability in the face of gastrointestinal bleeding Complications: None EBL: 2 cc Patient was placed in Trendelenburg. The left side of the chest was prepped with ChloraPrep. Using universal precautions sterile drape was placed. Using sterile technique the left subclavian vein was cannulated on the first attempt. Venous blood was aspirated. Guidewire was inserted and a 6 Tel[place] Cordis catheter was placed in the usual fashion. Line flushed and withdrew without difficulty. Catheter was sutured into place. Sterile dressing was placed. Immediately postprocedure chest x-ray was obtained. Bedside read of chest x-ray showed no pneumothorax with line in reasonable position.
[2024-04-02 00:30] LABS: HCT - HEMATOCRIT 28.9 % (42.0-52.0); HGB - HEMOGLOBIN 9.7 g/dL (14.0-18.0)
[2024-04-02] MEDS ORDERED: fentaNYL 2,500 MCG/250 ML 2,500 MCG/250 ML BAG IV ONE (00:41)
[2024-04-02 05:05] LABS: BASOPHILS % (AUTO) 0.2 %; HCT - HEMATOCRIT 26.4 % (42.0-52.0); HGB - HEMOGLOBIN 8.7 g/dL (14.0-18.0); LYMPHOCYTES # (AUTO) 1.6 10^3/uL (1.5-3.5); LYMPHOCYTES % (AUTO) 8.7 %; MEAN CORPUSCULAR HEMOGLOBIN 30.9 pg (27.0-31.0); MEAN CORPUSCULAR VOLUME 93.6 fL (80.0-94.0); MEAN PLATELET VOLUME 9.8 fL (7.4-11.4); MONOCYTES # (AUTO) 1.3 10^3/uL (0.0-1.0); MONOCYTES % (AUTO) 6.8 %; NEUTROPHILS # (AUTO) 15.4 10^3/uL (1.5-6.6); NEUTROPHILS % (AUTO) 83.8 %; NRBC ABSOLUTE COUNT (AUTO) 0.02 x10^3/uL; NUCLEATED RED BLOOD CELLS AUTO 0.1 /100WBC; PLT - PLATELET COUNT 136 10^3/uL (130-450); RED BLOOD COUNT 2.82 10^6/uL (4.70-6.10); RED CELL DISTRIBUTION WIDTH 16.4 % (12.0-15.0); WHITE BLOOD COUNT 18.4 x10^3/uL (4.8-10.8)
[2024-04-02 05:11] LABS: INR 1.5 (0.8-1.2); PT - PROTHROMBIN TIME 15.9 secs (9.9-12.6)
[2024-04-02 05:20] LABS: CALCIUM, IONIZED 1.11 mmol/L (1.09-1.30); MAGNESIUM 1.7 mg/dL (1.7-2.3); VBG PH 7.37 (7.31-7.41)
[2024-04-02 05:26] LABS: ALBUMIN 2.2 g/dL (3.2-5.5); ALBUMIN/GLOBULIN RATIO 1.7 (1.0-2.2); BILIRUBIN,TOTAL 0.4 mg/dL (0.2-1.0); CALCIUM 7.1 mg/dL (8.5-10.3); CREATININE 1.9 mg/dL (0.6-1.3); PHOSPHORUS 4.6 mg/dL (2.5-5.0); TOTAL PROTEIN 3.5 g/dL (6.4-8.9)
[2024-04-02 05:57] LABS: ABG BASE EXCESS -3.7 mmol/L (-2.0-3.0); ABG OXYGEN SATURATION 100 % (95-98); ABG PCO2 36 mmHg (34-45); ABG PH 7.39 (7.35-7.45); ABG PO2 106 mmHg (83-108); ABG TCO2 22.6 mmol/L (21.0-29.0)
[2024-04-02 05:58] LABS: ABG MODE OF VENTILATION SIMV; ABG RESPIRATORY RATE 14 b/min
[2024-04-02] MEDS: MAGNESIUM SULFATE 2 GRAM 2 GM/50 ML BAG IV ONE (06:41)
[2024-04-02] MEDS: DEXMEDETOMIDINE 400 MCG/100 ML 100 ML IV SCH (08:17)
[2024-04-02] MEDS: CALCIUM GLUC 1,000MG/50ML-NACL 1,000 MG/50 ML BAG IV ONE (08:18)
--- NOTE | 2024-04-02 09:11 | PROVIDER PROGRESS NOTE ---
Subjective Prog Note Date Prog Note Date: 04/02/24 Prog Note Time: 08:56 Subjective Subjective: This is a 78-year-old male with a past medical history of bone and joint discomfort, on meloxicam greater than 2 years, who presents to the ER for new onset of lower GI bleed.Patient states that his first bloody watery bowel movement was yesterday, which continued this morning. Patient denies chest pain, Palpitation, shortness of breath or abdominal pain or palpitation. Patient states that he Daggett weak on arrival but this has Now resolved. Patient received Protonix and 1 unit of RBCs in the ER. ER physician consulted surgery for EGD. Surgery plan for EGD this afternoon. Laboratory values indicated reactive leukocytosis of 16.8, hemoglobin 7.4 and grossly normal chemistry. Patient is full code 03/31/2024: Status post EGD, 03/30/2024, with no findings of active bleeding. Patient had another overnight event of bleeding per rectum. Patient feels weak and at times dizzy. Patient scheduled for colonoscopy today. 04/01/2024: Patient had a massive GI bleed during the nighttime. He was taken to the OR for emergent Abdominal surgery (Please see surgical report). Patient underwent a massive infusion protocol, return to the ICU intubated. 04/02/2024: Patient continues to be ventilated, Status post abdominal surgery day 1. Discussion with surgery, patient is at high risk of decompensation. Agree with possible transfer For higher level of care. Current Medications Current Medications Current Medications: Current Medications Generic Name Dose Route Start Last Admin Trade Name Freq PRN Reason Stop Dose Admin Hydromorphone HCl 0.5 mg 03/30/24 16:38 Hydromorphone 0.5 Mg/0.5 Ml Syringe IVP Q2H PRN Pain 8 to 10 Dextrose/Sodium Chloride 1,000 mls @ 75 mls/hr 03/31/24 19:00 04/02/24 05:08 D5ns IV 75 mls/hr .[id number] RONIT Administration Propofol 1,000 mg in 100 mls @ 5.37 mls/hr 04/01/24 05:00 04/02/24 06:49 Diprivan IV 0 mcg/kg/min .[id number] RONIT 0 mls/hr Titration Protocol 10 MCG/KG/MIN Fentanyl 2,500 mcg/ Sodium 250 mls @ 8.95 mls/hr 04/01/24 05:00 04/02/24 06:49 Chloride IV 0 mcg/kg/hr .[id number] RONIT 0 mls/hr Titration Protocol 1 MCG/KG/HR Piperacillin Sod/Tazobactam 100 mls @ 25 mls/hr 04/01/24 12:30 04/02/24 05:24 Sod 3.375 gm/ Sodium Chloride IV 25 mls/hr Q8H RONIT Administration Acetaminophen 1,000 mg in 100 mls @ 400 mls/hr 04/01/24 18:00 04/02/24 05:44 Acetaminophen IV Infused Q6HR RONIT Infusion Fluconazole 100 mls @ 100 mls/hr 04/02/24 09:00 Diflucan 200 Mg/100 Ml IV DAILY RONIT Dexmedetomidine/Sodium Chloride 100 mls @ 4.475 mls/hr 04/02/24 08:00 04/02/24 08:17 Precedex Premix IV 0.2 mcg/kg/hr .[id number] RONIT 4.48 mls/hr Administration Protocol 0.2 MCG/KG/HR Ondansetron HCl 4 mg 03/30/24 16:38 Ondansetron Odt 4 Mg Tablet TL Q6HR PRN Nausea / Vomiting Pantoprazole Sodium 40 mg 03/30/24 21:00 04/01/24 20:35 Pantoprazole 40 Mg Vial IV 40 mg BID RONIT Administration Sodium Chloride 10 ml 03/30/24 16:38 Sodium Chloride Flush 0.9% 10 Ml Syringe IVP PRN PRN NEEDED PER PROVIDER ORDERS Sodium Chloride 10 ml 03/30/24 17:00 04/01/24 23:35 Sodium Chloride Flush 0.9% 10 Ml Syringe IVP 10 ml 0100,0900,1700 RONIT Administration Objective Vital Signs/Intake & Output Reviewed Vital Signs: Yes Vital Signs: Vital Signs x48h Temp Pulse Pulse Resp BP Pulse Ox 04/02/24 07:27 72 04/02/24 07:00 69 9 L 125/62 98 04/02/24 06:00 70 14 105/56 L 97 04/02/24 05:50 69 04/02/24 05:00 75 14 106/53 L 98 04/02/24 04:00 36.6 C 73 12 109/64 98 04/02/24 03:30 68 04/02/24 03:00 69 14 91/53 L 98 04/02/24 02:00 70 14 94/50 L 97 04/02/24 01:50 70 04/02/24 01:00 76 14 111/54 L 98 Intake & Output: Intake & Output 03/30/24 03/31/24 04/01/24 04/02/24 23:59 23:59 23:59 23:59 Intake Total 900 / 900 2370 / 2370 4451 / 4451 1595 / 1595 Output Total 500 / 500 2425 / 2425 1342 / 1342 370 / 370 Balance 400 / 400 -55 / -55 3109 / 3109 1225 / 1225 Weight (kg) 89.5 kg 89.5 kg Objective General Appearance: positive No acute distress and Other (Patient is sedated and intubated) Eyes Bilateral: positive Normal inspection and PERRL ENT: positive ENT inspection nml and Pharynx nml Neck: positive Nml inspection and Trachea midline Respiratory: positive Chest non-tender, No respiratory distress and Other (On vent support) Cardiovascular: positive Regular rate & rhythm and No murmur Abdomen: positive Non-tender, No organomegaly and Other (Status post abdominal surgery, midline incision, CARMEN drain present) Skin: positive Color nml and No rash Extremities: positive Non-tender and Full ROM Neurologic/Psychiatric: positive Other (Patient intubated and sedated) Lab Results 04/02/24 10:01 04/02/24 04:46 Other Labs: Lab Results x24hrs 04/02/24 04/02/24 04/02/24 Range/Units 05:50 04:46 00:22 WBC 18.4 H (4.8-10.8) x10^3/uL RBC 2.82 L (4.70-6.10) 10^6/uL Hgb 8.7 L 9.7 L (14.0-18.0) g/dL Hct 26.4 L 28.9 L (42.0-52.0) % MCV 93.6 (80.0-94.0) fL MCH 30.9 (27.0-31.0) pg MCHC 33.0 (32.0-36.0) g/dL RDW 16.4 H (12.0-15.0) % Plt Count 136 (130-450) 10^3/uL MPV 9.8 (7.4-11.4) fL Neut # (Auto) 15.4 H (1.5-6.6) 10^3/uL Lymph # (Auto) 1.6 (1.5-3.5) 10^3/uL [place] # (Auto) 1.3 H (0.0-1.0) 10^3/uL Eos # (Auto) 0.0 (0.0-0.7) 10^3/uL Baso # (Auto) 0.0 (0.0-0.1) 10^3/uL Absolute Nucleated RBC 0.02 x10^3/uL Nucleated RBC % 0.1 /100WBC PT 15.9 H (9.9-12.6) secs INR 1.5 H (0.8-1.2) Bld Gas Analysis Time 0555 Sample Site RIGHT BRACHIAL ABG pH 7.39 (7.35-7.45) ABG pCO2 36 (34-45) mmHg ABG pO2 106 (83-108) mmHg ABG HCO3 21.5 L (22.0-26.0) mmol/L ABG Total CO2 22.6 (21.0-29.0) mmol/L ABG O2 Saturation 100 H (95-98) % ABG Base Excess -3.7 L (-2.0-3.0) mmol/L Carlos A Test NOT APPLICABLE VBG pH 7.370 (7.31-7.41) VBG pCO2 (41-51) mmHg VBG pO2 (25-47) mmHg VBG HCO3 (23-28) mmol/L VBG Total CO2 (24-29) mmol/L VBG O2 Saturation (60-80) % VBG Base Excess (-2 - +2) mmol/L Ionized Calcium 1.11 (1.09-1.30) mmol/L Respiration Rate 14 b/min O2 Delivery Device VENTILATOR Vent Mode SIMV FiO2 30.00 Tidal Volume 500 mL PEEP 5 cmH2O Pressure Support Vent 12 cmH2O Sodium 142 (135-145) mmol/L Potassium 4.0 4.0 (3.5-4.5) mmol/L Chloride 114 H (101-111) mmol/L Carbon Dioxide 23 (21-32) mmol/L Anion Gap 5.0 L (6-13) BUN 43 H (6-20) mg/dL Creatinine 1.9 H (0.6-1.3) mg/dL Estimated GFR (MDRD) 34 L (>89) Glucose 166 H (74-104) mg/dL Calcium 7.1 L (8.5-10.3) mg/dL Phosphorus 4.6 (2.5-5.0) mg/dL Magnesium 1.7 (1.7-2.3) mg/dL Total Bilirubin 0.4 (0.2-1.0) mg/dL AST 20 (10-42) IU/L ALT 13 (10-60) IU/L Alkaline Phosphatase 28 L (42-121) IU/L Total Protein 3.5 L (6.4-8.9) g/dL Albumin 2.2 L (3.2-5.5) g/dL Globulin 1.3 L (2.1-4.2) g/dL Albumin/Globulin Ratio 1.7 (1.0-2.2) Prealbumin 16 L (17-34) mg/dL Blood Type Antibody Screen Crossmatch IS Only 04/01/24 04/01/24 04/01/24 Range/Units 17:33 16:11 12:25 WBC (4.8-10.8) x10^3/uL RBC (4.70-6.10) 10^6/uL Hgb 11.0 L 11.7 L (14.0-18.0) g/dL Hct 32.8 L 35.8 L (42.0-52.0) % MCV (80.0-94.0) fL MCH (27.0-31.0) pg MCHC (32.0-36.0) g/dL RDW (12.0-15.0) % Plt Count (130-450) 10^3/uL MPV (7.4-11.4) fL Neut # (Auto) (1.5-6.6) 10^3/uL Lymph # (Auto) (1.5-3.5) 10^3/uL [place] # (Auto) (0.0-1.0) 10^3/uL Eos # (Auto) (0.0-0.7) 10^3/uL Baso # (Auto) (0.0-0.1) 10^3/uL Absolute Nucleated RBC x10^3/uL Nucleated RBC % /100WBC PT (9.9-12.6) secs INR (0.8-1.2) Bld Gas Analysis Time 1622 Sample Site RIGHT RADIAL ABG pH 7.34 L (7.35-7.45) ABG pCO2 31 L (34-45) mmHg ABG pO2 53 L (83-108) mmHg ABG HCO3 17.2 L (22.0-26.0) mmol/L ABG Total CO2 18.2 L (21.0-29.0) mmol/L ABG O2 Saturation 87 L* (95-98) % ABG Base Excess -8.7 L (-2.0-3.0) mmol/L Carlos A Test POSITIVE VBG pH 7.358 (7.31-7.41) VBG pCO2 29.1 L (41-51) mmHg VBG pO2 106.2 H (25-47) mmHg VBG HCO3 16.5 L (23-28) mmol/L VBG Total CO2 17.4 L (24-29) mmol/L VBG O2 Saturation 99.0 H (60-80) % VBG Base Excess -9.2 L (-2 - +2) mmol/L Ionized Calcium (1.09-1.30) mmol/L Respiration Rate 14 b/min O2 Delivery Device VENTILATOR Vent Mode SIMV FiO2 30.00 Tidal Volume 500 mL PEEP 5 cmH2O Pressure Support Vent 12 cmH2O Sodium (135-145) mmol/L Potassium (3.5-4.5) mmol/L Chloride (101-111) mmol/L Carbon Dioxide (21-32) mmol/L Anion Gap (6-13) BUN (6-20) mg/dL Creatinine (0.6-1.3) mg/dL Estimated GFR (MDRD) (>89) Glucose (74-104) mg/dL Calcium (8.5-10.3) mg/dL Phosphorus (2.5-5.0) mg/dL Magnesium (1.7-2.3) mg/dL Total Bilirubin (0.2-1.0) mg/dL AST (10-42) IU/L ALT (10-60) IU/L Alkaline Phosphatase (42-121) IU/L Total Protein (6.4-8.9) g/dL Albumin (3.2-5.5) g/dL Globulin (2.1-4.2) g/dL Albumin/Globulin Ratio (1.0-2.2) Prealbumin (17-34) mg/dL Blood Type Antibody Screen Crossmatch IS Only 03/30/24 Range/Units 11:40 WBC (4.8-10.8) x10^3/uL RBC (4.70-6.10) 10^6/uL Hgb (14.0-18.0) g/dL Hct (42.0-52.0) % MCV (80.0-94.0) fL MCH (27.0-31.0) pg MCHC (32.0-36.0) g/dL RDW (12.0-15.0) % Plt Count (130-450) 10^3/uL MPV (7.4-11.4) fL Neut # (Auto) (1.5-6.6) 10^3/uL Lymph # (Auto) (1.5-3.5) 10^3/uL [place] # (Auto) (0.0-1.0) 10^3/uL Eos # (Auto) (0.0-0.7) 10^3/uL Baso # (Auto) (0.0-0.1) 10^3/uL Absolute Nucleated RBC x10^3/uL Nucleated RBC % /100WBC PT (9.9-12.6) secs INR (0.8-1.2) Bld Gas Analysis Time Sample Site ABG pH (7.35-7.45) ABG pCO2 (34-45) mmHg ABG pO2 (83-108) mmHg ABG HCO3 (22.0-26.0) mmol/L ABG Total CO2 (21.0-29.0) mmol/L ABG O2 Saturation (95-98) % ABG Base Excess (-2.0-3.0) mmol/L Carlos A Test VBG pH (7.31-7.41) VBG pCO2 (41-51) mmHg VBG pO2 (25-47) mmHg VBG HCO3 (23-28) mmol/L VBG Total CO2 (24-29) mmol/L VBG O2 Saturation (60-80) % VBG Base Excess (-2 - +2) mmol/L Ionized Calcium (1.09-1.30) mmol/L Respiration Rate b/min O2 Delivery Device Vent Mode FiO2 Tidal Volume mL PEEP cmH2O Pressure Support Vent cmH2O Sodium (135-145) mmol/L Potassium (3.5-4.5) mmol/L Chloride (101-111) mmol/L Carbon Dioxide (21-32) mmol/L Anion Gap (6-13) BUN (6-20) mg/dL Creatinine (0.6-1.3) mg/dL Estimated GFR (MDRD) (>89) Glucose (74-104) mg/dL Calcium (8.5-10.3) mg/dL Phosphorus (2.5-5.0) mg/dL Magnesium (1.7-2.3) mg/dL Total Bilirubin (0.2-1.0) mg/dL AST (10-42) IU/L ALT (10-60) IU/L Alkaline Phosphatase (42-121) IU/L Total Protein (6.4-8.9) g/dL Albumin (3.2-5.5) g/dL Globulin (2.1-4.2) g/dL Albumin/Globulin Ratio (1.0-2.2) Prealbumin (17-34) mg/dL Blood Type O POSITIVE Antibody Screen NEGATIVE Crossmatch IS Only See Detail Assessment/Plan Problem List (1) ABLA (acute blood loss anemia): Impression: Status post EGD day 2. EGD indicates no active bleeding, Indications of esophagitis. Status post Day 1 abdominal surgery with iliosacral anastomosis, partial jejenum resection and near total colectomy on 04/01/2024 Surgery is following. Continue to trend H&H, Transfuse RBC as needed. Hemoglobin has dropped from11.7 postsurgery to 8.7 today. Patient is a high risk for rebleeding. Per surgery there are several residual lesions in the small bowel which surgery was unable to remove. These are at risk for bleeding. Low threshold to transfer patient to higher level of care Currently patient is hemodynamically stable, Off pressor support Goal: MAP of 65, or SBP greater than 95 (2) Idiopathic small intestinal ulcers: Impression: Surgery removed several small intestinal lesions. Surgery removed large bowel.. Tissue was sent for pathology. Follow-up pathology. Continue Protonix. (3) Lower GI bleed: Impression: Patient status post EGD 03/31/2024 with no indication of active bleed. Patient had a massive lower GI hemorrhage on 04/01/2024. Was taken to the OR with for abdominal surgery. Please see above Surgery is following (4) Leukocytosis: Impression: Leukocytes continue to increase from 7.6-18.4. Patient is on Zosyn, DC'd Flagyl, added fluconazole. Obtain lactate Patient with benefit from ID consultation. (5) Joint pain: Impression: Patient has chronic joint pain for which he takes meloxicam at night. Stop meloxicam Tylenol and Dilaudid for pain control Recommendation to follow-up with environmental professional as an outpatient. (6) Respiratory failure: Impression: Status post extensive abdominal surgery day 1. Continue lung protective ventilation Plan to keep patient intubated at this time, monitor H&H. Patient is at high risk for Additional abdominal surgery in the near future. Plan to extubate when H&H is stable. (7) Acute renal failure: Impression: Likely secondary to septic shock, Likely ATN Patient's potassium is stable, patient makes urine. Continue to monitor. Continue IV fluids (8) Hypovolemic shock: Impression: Resolved Patient was on Bruce-Synephrine for short time secondary to massive blood loss. Patient is now off pressors (9) Severe sepsis: Impression: Likely secondary to intra-abdominal infection status post surgery date 1. Trend lactate
--- NOTE | 2024-04-02 09:35 | PROVIDER PROGRESS NOTE ---
Subjective General Admit Date: 03/31/24 Procedure Date: 04/01/24 Post Op Days: 1 Procedure Performed: EGD (03/30) ExLap/subtotal colectomy/SBR (04/01) Other Other Information/Narrative: Patient remains intubated and sedated. He had some low blood pressures after surgery yesterday which improved with decreased sedation. Blood pressure has been good this AM. One small, old blood BM after surgery yesterday, no additional BM's overnight. Patient opens eyes to voice and denies pain this AM. Wound Assessment Wound/Incisions: positive Dressing dry and intact Drain Type: CARMEN, adjacent to duodenal closure Drain Output Description: serosanguinous Approximate mls Output: 450mL out yesterday after surgery Exam Exam Gen: intubated, sedated HEENT: ETT; NGT with blood tinged bilious output 50mL reported since surgery;, Left subclavian cordisin place, c/d/i dressing and working well. CV: RRR Pulm: intubated, satting in high 90s on 30% FiO2, PEEP 5 Abd: CARMEN drain RUQ with 450mL serosang output yesterday after surgery (expect high output initially due to extensive abdominal irrigation); Orta with 842mL out yesterday 0.4mL/kg/hr.; incision c/d/i with prabhjot and Aquacel dressing in place. Ext: +edema in all extremities ABX Reporting Has patient been on IV antibiotics over the past 48 hours?: Yes Impression/Plan Problem List (1) ABLA (acute blood loss anemia): (2) Idiopathic small intestinal ulcers: (3) Lower GI bleed: (4) Leukocytosis: (5) Joint pain: (6) Respiratory failure: (7) Acute renal failure: (8) Hypovolemic shock: (9) Severe sepsis: Problem List Comment Problem List: 78yoM admitted with active GIB and anemia refractory to transfusion, not anticoagulated. Initially presumed to be UGIB due to h/o Meloxicam use. 03/30: EGD did not reveal source - very mild antral gastritis and few patchy erythematous areas in fundus/cardia adjacent to a paraesophageal hernia, but no active bleeding or old blood visualized in stomach or duodenum. 03/31: Presumed LGIB given unremarkable EGD findings in setting of active rectal bleeding, planned bowel prep/colonoscopy for 04/01. *Acute hemodynamic and hypoxic decompensation late evening resulting in MTP and emergent operation overnight. 04/01: Exploratory laparotomy, subtotal colectomy with ileocolic anastomosis [ colon full of >1L blood], small bowel resection with primary anastomosis [15cm jejunum with bleeding ulcerated nodules], anterior gastrotomy [stapled closure] and anterior duodenotomy [suture closure] done for exploration in identification of bleeding source. Total 3U PRBC preop, 5U PRBC/2U FFP/1U cryo intraop. GIB source: Definite bleeding from jejunal ulcers. Appearance of diffuse bleeding gastritis and duodenitis intraoperatively, but could not r/o retrograde blood collecting from jejunum. Fresh clot in gastric cardia that seemed to resolve with ligation of most cephalad short gastrics. Unknown if additional LGIB source, pending pathology review of subtotal colectomy specimen. POD#1 - Vent mamagement per ICU, SBT and extubation when able, monitoring for pulmonary complications of large volume resuscitation - sedation with fentanyl/propofol, weaning as possible - additional pain control with scheduled IV tylenol and prn IV dilaudid - HD monitoring in ICU - Protonix 40mg BID IV - NGT to LWIS, low output, becoming less blooding - Strict NPO --- given total of 4 staple/suture lines, including gastrotomy closure, duodenal closure, jejunal anastomosis and ileocolic anastomosis, would plan for UGI on POD3 at earliest before feeding, to ensure no duodenal leak. - TPN started, Nutrition consult placed - continue CARMEN drain in RUQ, posterior to duodenal closure, to monitor for bile leak - Aquacel dressing down on POD5 or sooner if clinical concern. Skin prabhjot out [id number] pending clinical course - continue orta while intubated - Trend hgb/electrolytes closely in early postop period. Patient is at high risk for rebleeding given noted lesions in jejunum at time of surgery. If his hemoglobin continues to trend down, recommend CTA and IR intervention (patient is at risk for short bowel syndrome if further bowel resection is required). If hgb trends down today, will discuss case with radiology here and if unable to perform CTA and IR intervention in this critically ill patient, I would recommend trasfer to a higher level of care for these interventions. I have discussed this plan of care with the primary team this morning. - If hgb stabilizes, continue to monitor closely. - empiric broad spectrum abx given GI tract opened in multiple locations during emergent surgery. Ok to d/c abx when leukocytosis normalizes, recommend no more than 3 days abx, no infection identified. - follow up on jejunal and colonic pathology reports, as well as EGD biopsies (rare causes of jejunal ulceration include celiac dz and GI lymphomas vs NSAID induced ulceration- though jejunum is distal for this) - VTE ppx with SCDs for now, will add lovenox POD1-2 if no sign of rebleed Hospital service is Primary Team. Patient remains critically ill in ICU. Surgery will continue to follow closely.
[2024-04-02 10:24] LABS: HCT - HEMATOCRIT 26.3 % (42.0-52.0); HGB - HEMOGLOBIN 8.9 g/dL (14.0-18.0)
[2024-04-02] MEDS: FLUCONAZOLE 200 MG/100 ML 100 ML IV SCH (10:44)
[2024-04-02] MEDS ORDERED: iohexoL-300 100 ML VIAL ONE (12:09)
[2024-04-02] MEDS: iohexoL-300 100 ML VIAL IVP ONE (13:50)
--- NOTE | 2024-04-02 16:23 | CT Report ---
PROCEDURE: CT Angio Abdomen/Pelvis INDICATIONS: smallbowel gi bleed CONTRAST: 100 mL Omnipaque 300 TECHNIQUE: After the administration of intravenous contrast, 2.5 mm thick sections acquired from the diaphragm t o the symphysis. 10 mm maximum-intensity projection (MIP) reformats were then acquired. For radiati on dose reduction, the following was used: automated exposure control, adjustment of mA and/or kV ac cording to patient size. COMPARISON: 04/01/2024, 03/31/2024 FINDINGS: Image quality: Excellent. VESSELS: Aorta: Mild atherosclerotic disease. Mesenteric arteries: Celiac trunk, superior and inferior mesenteric arteries appear patent. Right pelvic arteries: Mild atherosclerotic disease. Left pelvic arteries: Mild atherosclerotic disease. CHEST: Lung bases and heart: Unremarkable. ABDOMEN: Liver: No solid mass. Gallbladder and biliary tree: No radiopaque stones or wall thickening. No biliary dilation. Spleen: No splenomegaly. Pancreas: No pancreatic ductal dilation. Adrenals: No adrenal nodule. Kidneys and ureters: No hydronephrosis. No renal cystic lesion which requires follow up. No solid mas s. Bowel and peritoneum: No bowel distension. No pathologic free fluid. Gastric tube terminates in the d uodenum. Intrapressuring tip terminates in the right lower quadrant. Small volume pneumoperitoneum, p ostsurgical. Lymph nodes: No central or retroperitoneal adenopathy. PELVIS: Suboptimal evaluation due to metallic artifact. Reproductive organs: Unremarkable. Bladder: Decompressed around a Harris catheter. Pelvic lymph nodes: No pelvic adenopathy by size criteria. Bones: No aggressive osseous abnormality. Bilateral hip arthroplasties. Other: No significant ventral or inguinal hernia. Hernia plugs present. IMPRESSION: Suboptimal evaluation of the pelvis due to metallic artifact. A rectal bleed cannot be excluded. No evidence of active GI hemorrhage. Postoperative changes, with dilated small and large bowel without transition point. Findings favor ad ynamic ileus. Pneumoperitoneum, which is postsurgical. Reviewed by: Venancio You MD on 04/02/2024 4:22 PM PST Approved by: Venancio You MD on 04/02/2024 4:22 PM PST Station ID: [id number]
[2024-04-02 18:31] LABS: HCT - HEMATOCRIT 26.3 % (42.0-52.0); HGB - HEMOGLOBIN 8.6 g/dL (14.0-18.0)
[2024-04-02] MEDS: PPN (CLINIMIX E 4.25/5) 2,000 ML with MULTIVITAMIN 10 ML, TRACE ELEMENTS 1 ML IV SCH (18:38)
[2024-04-02] MEDS: FAT EMULSION 20% 250 ML IV SCH (18:38)
[2024-04-03 04:52] LABS: BASOPHILS # (AUTO) 0.1 10^3/uL (0.0-0.1); BASOPHILS % (AUTO) 0.3 %; EOSINOPHILS # (AUTO) 0.1 10^3/uL (0.0-0.7); EOSINOPHILS % (AUTO) 0.5 %; HCT - HEMATOCRIT 23.5 % (42.0-52.0); HGB - HEMOGLOBIN 7.6 g/dL (14.0-18.0); LYMPHOCYTES # (AUTO) 1.5 10^3/uL (1.5-3.5); LYMPHOCYTES % (AUTO) 8.1 %; MEAN CORPUSCULAR HEMOGLOBIN 31.4 pg (27.0-31.0); MEAN CORPUSCULAR HGB CONC 32.3 g/dL (32.0-36.0); MEAN CORPUSCULAR VOLUME 97.1 fL (80.0-94.0); MEAN PLATELET VOLUME 9.9 fL (7.4-11.4); MONOCYTES # (AUTO) 1.1 10^3/uL (0.0-1.0); MONOCYTES % (AUTO) 5.9 %; NEUTROPHILS # (AUTO) 15.9 10^3/uL (1.5-6.6); NEUTROPHILS % (AUTO) 84.5 %; NRBC ABSOLUTE COUNT (AUTO) 0.03 x10^3/uL; NUCLEATED RED BLOOD CELLS AUTO 0.2 /100WBC; PLT - PLATELET COUNT 201 10^3/uL (130-450); RED BLOOD COUNT 2.42 10^6/uL (4.70-6.10); RED CELL DISTRIBUTION WIDTH 17.2 % (12.0-15.0); WHITE BLOOD COUNT 18.8 x10^3/uL (4.8-10.8)
[2024-04-03 05:02] LABS: CALCIUM, IONIZED 1.19 mmol/L (1.09-1.30); VBG PH 7.402 (7.31-7.41)
[2024-04-03 05:05] LABS: INR 1.2 (0.8-1.2); PT - PROTHROMBIN TIME 12.7 secs (9.9-12.6)
[2024-04-03 05:11] LABS: ALBUMIN 2.3 g/dL (3.2-5.5); ALBUMIN/GLOBULIN RATIO 1.2 (1.0-2.2); BILIRUBIN,TOTAL 0.3 mg/dL (0.2-1.0); CALCIUM 7.5 mg/dL (8.5-10.3); CREATININE 1.1 mg/dL (0.6-1.3); MAGNESIUM 2.5 mg/dL (1.7-2.3); PHOSPHORUS 2.6 mg/dL (2.5-5.0); POTASSIUM 3.4 mmol/L (3.5-4.5); TOTAL PROTEIN 4.2 g/dL (6.4-8.9)
[2024-04-03] MEDS: POTASSIUM CHLOR 10 MEQ/100 ML 10 MEQ/100 ML BAG IV SCH (05:42)
--- NOTE | 2024-04-03 06:59 | PROVIDER PROGRESS NOTE ---
Subjective General Admit Date: 03/31/24 Procedure Date: 04/01/24 Post Op Days: 2 Procedure Performed: EGD (03/30) ExLap/subtotal colectomy/SBR (04/01) Other Other Information/Narrative: Patient extubated yesterday afternoon. He is comfortable and a bit fuzzy about all the details of what has happened since he's been here. Denies pain at this time. He would like everything done to help him get better. No BM's overnight. Wound Assessment Wound/Incisions: positive Dressing dry and intact Drain Type: CARMEN, adjacent to duodenal closure Drain Output Description: serosanguinous Approximate mls Output: 450mL out yesterday after surgery Exam Exam Gen: awake and alert HEENT: NGT with bilious output 1L reported in last 24 hours; Left subclavian cordis in place, c/d/i dressing and working well. CV: RRR Pulm: extubated, non labored, on RA Abd: CARMEN drain RUQ with 445mL serosang output in last 24 hours (expect high output initially due to extensive abdominal irrigation); Orta with 842mL out yesterday 0.4mL/kg/hr.; incision c/d/i with prabhjot and Aquacel dressing in place. Ext: +edema in all extremities Impression/Plan Problem List (1) ABLA (acute blood loss anemia): (2) Idiopathic small intestinal ulcers: (3) Lower GI bleed: (4) Leukocytosis: (5) Joint pain: (6) Respiratory failure: (7) Acute renal failure: (8) Hypovolemic shock: (9) Severe sepsis: Problem List Comment Problem List: 78yoM admitted with active GIB and anemia refractory to transfusion, not a nticoagulated. Initially presumed to be UGIB due to h/o Meloxicam use. 03/30: EGD did not reveal source - very mild antral gastritis but no active bleeding or old blood visualized in stomach or duodenum. 03/31: Presumed LGIB given unremarkable EGD findings in setting of active rectal bleeding, planned bowel prep/colonoscopy for 04/01. *Acute hemodynamic and hypoxic decompensation late evening resulting in MTP and emergent operation overnight. 04/01: Exploratory laparotomy, subtotal colectomy with ileocolic anastomosis [ colon full of >1L blood], small bowel resection with primary anastomosis [15cm jejunum with bleeding ulcerated nodules], anterior gastrotomy [stapled closure] and anterior duodenotomy [suture closure] done for exploration in identification of bleeding source. Total 3U PRBC preop, 5U PRBC/2U FFP/1U cryo intraop. GIB source: Definite bleeding from jejunal ulcers. Appearance of diffuse bleeding gastritis and duodenitis intraoperatively, but could not r/o retrograde blood collecting from jejunum. Fresh clot in gastric cardia that seemed to resolve with ligation of most cephalad short gastrics. Unknown if additional LGIB source, pending pathology review of subtotal colectomy specimen. POD#2 - patient extubated yesterday afternoon - continue multimodal pain control with scheduled IV tylenol and prn IV dilaudid - HD monitoring in ICU - Protonix 40mg BID IV - NGT to LWIS, low output, becoming less blooding - Strict NPO --- given total of 4 staple/suture lines, including gastrotomy closure, duodenal closure, jejunal anastomosis and ileocolic anastomosis, would plan for UGI on POD3 at earliest before feeding, to ensure no duodenal leak. - TPN started, Nutrition consult placed - continue CARMEN drain in RUQ, posterior to duodenal closure, to monitor for bile leak - Aquacel dressing down on POD5 or sooner if clinical concern. Skin prabhjot out [id number] pending clinical course - continue orta for strict I/Os monitoring - Trend hgb/electrolytes closely in early postop period. Patient is at high risk for rebleeding given noted lesions in jejunum at time of surgery. No active bleeding seen on CTA yesterday, but Hgb dropped again overnight. Recommend repeat Hgb later this morning, transfuse for hgb less than 7. The best option would be for IR intervention with the spectre of rebleeding (patient is at risk for short bowel syndrome if further small bowel resection is required). No ability for IR at to intervene, so I recommend emergent transfer to a higher level of care. He may also benefit from tagged RBC scan, not available at . I have discussed this plan of care with the primary team and the patient. - empiric broad spectrum abx given GI tract opened in multiple locations during emergent surgery. Ok to d/c abx when leukocytosis normalizes, recommend no more than 3 days abx, no infection identified. - follow up on jejunal and colonic pathology reports, as well as EGD biopsies (rare causes of jejunal ulceration include celiac dz and GI lymphomas vs NSAID induced ulceration- though jejunum is distal for this) - VTE ppx with SCDs for now, will add lovenox POD1-2 if no sign of rebleed Hospital service is Primary Team. Patient remains critically ill in ICU. Surgery will continue to follow closely.
[2024-04-03] MEDS: SODIUM CHLORIDE FLUSH 0.9% 10 ML SYRINGE IVP PRN (08:51)
--- NOTE | 2024-04-03 09:17 | PROVIDER PROGRESS NOTE ---
Subjective Prog Note Date Prog Note Date: 04/03/24 Prog Note Time: 12:36 Subjective Pt reports feeling: Improved Subjective: Federico reports he waxes and wanes but is overall feeling improved this morning. His abdominal pain is worse with movement but well-controlled when laying in bed. He notes some neck soreness from positioning but denies any other pain elsewhere in his body. He has not passed any gas and has not had a bowel movement. He main complaint today is his dry mouth. He hopes to be allowed to drink fluids or at least have some ice chips. Federico wants to be doing everything he can to get well. Federico has also noted some visual phenomena when he closes his eyes. He reports until this afternoon when it resolved, he has been "seeing things" when he closes his eyes. This includes people, metal objects, and multiple floating spirometers. He wonders if this is due to some of the medications he is on. They are not distressing and he is aware they are not real. We further discussed Federico's medication history this morning and he reports he has taken meloxicam and another over the counter nighttime pain relief medication for a long time. 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 He does not report that his pain was significantly worse or unusual in the weeks leading up to his hospitalization. He denies that any of these aches and pains are severe on a daily basis. Current Medications Current Medications Current Medications: Current Medications Generic Name Dose Route Start Last Admin Trade Name Paulq PRN Reason Stop Dose Admin Hydromorphone HCl 0.5 mg 03/30/24 16:38 Hydromorphone 0.5 Mg/0.5 Ml Syringe IVP Q2H PRN Pain 8 to 10 Propofol 1,000 mg in 100 mls @ 5.37 mls/hr 04/01/24 05:00 04/02/24 17:30 Diprivan IV Not Given .[id number] RONIT Protocol 10 MCG/KG/MIN Fentanyl 2,500 mcg/ Sodium 250 mls @ 8.95 mls/hr 04/01/24 05:00 04/02/24 06:49 Chloride IV 0 mcg/kg/hr .[id number] RONIT 0 mls/hr Titration Protocol 1 MCG/KG/HR Piperacillin Sod/Tazobactam 100 mls @ 25 mls/hr 04/01/24 12:30 04/03/24 05:23 Sod 3.375 gm/ Sodium Chloride IV 25 mls/hr Q8H RONIT Administration Acetaminophen 1,000 mg in 100 mls @ 400 mls/hr 04/01/24 18:00 04/03/24 05:33 Acetaminophen IV 400 mls/hr Q6HR RONIT Administration Fluconazole 100 mls @ 100 mls/hr 04/02/24 09:00 04/02/24 11:50 Diflucan 200 Mg/100 Ml IV Infused DAILY RONIT Infusion Dexmedetomidine/Sodium Chloride 100 mls @ 4.475 mls/hr 04/02/24 08:00 04/03/24 06:49 Precedex Premix IV Not Given .[id number] RONIT Protocol 0.2 MCG/KG/HR Multivitamins 10 ml/ Zinc/ 2,011 mls @ 83 mls/hr 04/02/24 19:00 04/02/24 18:38 Copper/Manganese/Selenium 1 ml IV 83 mls/hr / Amino Acids/Electrolytes/ 1900 RONIT Administration Dextrose Protocol Fat Emulsion Intravenous 250 mls @ 21 mls/hr 04/02/24 19:00 04/03/24 06:56 Intralipid 20% IV Infused 1900 RONIT Infusion Potassium Chloride 10 meq in 100 mls @ 100 mls/hr 04/03/24 06:00 04/03/24 06:58 Potassium Chloride IV 04/03/24 09:59 100 mls/hr Q1H RONIT Administration Protocol Ondansetron HCl 4 mg 03/30/24 16:38 Ondansetron Odt 4 Mg Tablet TL Q6HR PRN Nausea / Vomiting Pantoprazole Sodium 40 mg 03/30/24 21:00 04/02/24 20:30 Pantoprazole 40 Mg Vial IV 40 mg BID RONIT Administration Sodium Chloride 10 ml 03/30/24 16:38 Sodium Chloride Flush 0.9% 10 Ml Syringe IVP PRN PRN NEEDED PER PROVIDER ORDERS Sodium Chloride 10 ml 03/30/24 17:00 04/03/24 00:57 Sodium Chloride Flush 0.9% 10 Ml Syringe IVP 10 ml 0100,0900,1700 RONIT Administration Objective Vital Signs/Intake & Output Reviewed Vital Signs: Yes Vital Signs: Vital Signs x48h Temp Pulse Resp BP Pulse Ox 04/03/24 08:00 99.1 C H 73 12 140/84 H 96 04/03/24 07:00 75 12 135/72 H 96 04/03/24 06:00 36.8 C 75 23 128/68 96 04/03/24 05:00 73 12 136/64 H 96 04/03/24 04:00 76 14 117/65 95 04/03/24 03:00 75 13 132/67 H 97 04/03/24 02:00 37.0 C 04/03/24 02:00 80 15 122/65 96 04/03/24 01:00 83 10 L 138/69 H 96 Intake & Output: Intake & Output 03/31/24 04/01/24 04/02/24 04/03/24 23:59 23:59 23:59 23:59 Intake Total 2370 / 2370 4451 / 4451 3068 / 3068 550 / 550 Output Total 2425 / 2425 1342 / 1342 1935 / 1935 1765 / 1765 Balance -55 / -55 3109 / 3109 1133 / 1133 -1215 / -1215 Weight (kg) 89.5 kg Objective General Appearance: positive No acute distress (laying comfortably in bed) and Alert (able to converse in full sentences and follow conversation appropriately ) Eyes Bilateral: positive Normal inspection, PERRL, EOMI, No lid inflammation, Conjunctivae nml and No scleral icterus ENT: positive Dry mucous membranes Neck: positive No JVD and Trachea midline; negative Lymphadenopathy (R), Lymphadenopathy (L) or Swelling/bruising Respiratory: positive No respiratory distress and Breath sounds nml (anterior) Cardiovascular: positive Regular rate & rhythm, No murmur and Decreased pulse(s) Peripheral Pulses: 0: Dorsalis pedis (R) and 0: Dorsalis pedis (L), 1+: Posterior tibialis (R) and 1+: Posterior tibialis (L) and 2+: Radial (R) and 2+: Radial (L) Abdomen: positive Non-tender (to light palpation), Abnml bowel sounds (hyperactive) and Other (status post abdominal surgery, midline incision, CARMEN drain present, dressings intact and dry); negative Guarding Skin: positive No rash (visualized legs, arms, chest, head ), Dry, Pallor (visualized legs, arms, chest, head ) and Other (ecchymosis near left antecubital fossa likely secondary to IV attempts); negative Warm (cool to the touch ), Cyanosis or Diaphoresis Extremities: positive Pedal edema; negative Nml appearance (nonpitting edema noticeable along dorsal aspect of bilateral hands and feet), Calf tenderness or Katt's sign/cords Neurologic/Psychiatric: positive Oriented x3 (person, place, event, time), CN's nml (2-12) (grossly intact ), Motor nml (grossly visualized bilateral arm movement and foot movement) and Mood/affect nml; negative Weakness (strong bilateral product ambassador strength in hands) or Facial droop Lab Results 04/03/24 04:25 04/03/24 04:25 Other Labs: Lab Results x24hrs 04/03/24 04/03/24 04/03/24 Range/Units 05:42 04:25 00:10 WBC 18.8 H (4.8-10.8) x10^3/uL RBC 2.42 L (4.70-6.10) 10^6/uL Hgb 7.6 L (14.0-18.0) g/dL Hct 23.5 L (42.0-52.0) % MCV 97.1 H (80.0-94.0) fL MCH 31.4 H (27.0-31.0) pg MCHC 32.3 (32.0-36.0) g/dL RDW 17.2 H (12.0-15.0) % Plt Count 201 (130-450) 10^3/uL MPV 9.9 (7.4-11.4) fL Neut # (Auto) 15.9 H (1.5-6.6) 10^3/uL Lymph # (Auto) 1.5 (1.5-3.5) 10^3/uL Arthur # (Auto) 1.1 H (0.0-1.0) 10^3/uL Eos # (Auto) 0.1 (0.0-0.7) 10^3/uL Baso # (Auto) 0.1 (0.0-0.1) 10^3/uL Absolute Nucleated RBC 0.03 x10^3/uL Nucleated RBC % 0.2 /100WBC PT 12.7 H (9.9-12.6) secs INR 1.2 (0.8-1.2) VBG pH 7.402 (7.31-7.41) Ionized Calcium 1.19 (1.09-1.30) mmol/L Sodium 141 (135-145) mmol/L Potassium 3.4 L (3.5-4.5) mmol/L Chloride 111 (101-111) mmol/L Carbon Dioxide 25 (21-32) mmol/L Anion Gap 5.0 L (6-13) BUN 30 H (6-20) mg/dL Creatinine 1.1 (0.6-1.3) mg/dL Estimated GFR (MDRD) 65 L (>89) Glucose 133 H (74-104) mg/dL POC Whole Bld Glucose 109 111 (70-100) mg/dL Lactic Acid (0.5-2.2) mmol/L Calcium 7.5 L (8.5-10.3) mg/dL Phosphorus 2.6 (2.5-5.0) mg/dL Magnesium 2.5 H (1.7-2.3) mg/dL Total Bilirubin 0.3 (0.2-1.0) mg/dL AST 21 (10-42) IU/L ALT 11 (10-60) IU/L Alkaline Phosphatase 34 L (42-121) IU/L Total Protein 4.2 L (6.4-8.9) g/dL Albumin 2.3 L (3.2-5.5) g/dL Globulin 1.9 L (2.1-4.2) g/dL Albumin/Globulin Ratio 1.2 (1.0-2.2) Prealbumin 14 L (17-34) mg/dL Crossmatch IS Only 04/02/24 04/02/24 04/02/24 Range/Units 18:24 18:12 10:01 WBC (4.8-10.8) x10^3/uL RBC (4.70-6.10) 10^6/uL Hgb 8.6 L 8.9 L (14.0-18.0) g/dL Hct 26.3 L 26.3 L (42.0-52.0) % MCV (80.0-94.0) fL MCH (27.0-31.0) pg MCHC (32.0-36.0) g/dL RDW (12.0-15.0) % Plt Count (130-450) 10^3/uL MPV (7.4-11.4) fL Neut # (Auto) (1.5-6.6) 10^3/uL Lymph # (Auto) (1.5-3.5) 10^3/uL Arthur # (Auto) (0.0-1.0) 10^3/uL Eos # (Auto) (0.0-0.7) 10^3/uL Baso # (Auto) (0.0-0.1) 10^3/uL Absolute Nucleated RBC x10^3/uL Nucleated RBC % /100WBC PT (9.9-12.6) secs INR (0.8-1.2) VBG pH (7.31-7.41) Ionized Calcium (1.09-1.30) mmol/L Sodium (135-145) mmol/L Potassium (3.5-4.5) mmol/L Chloride (101-111) mmol/L Carbon Dioxide (21-32) mmol/L Anion Gap (6-13) BUN (6-20) mg/dL Creatinine (0.6-1.3) mg/dL Estimated GFR (MDRD) (>89) Glucose (74-104) mg/dL POC Whole Bld Glucose 122 (70-100) mg/dL Lactic Acid 2.0 (0.5-2.2) mmol/L Calcium (8.5-10.3) mg/dL Phosphorus (2.5-5.0) mg/dL Magnesium (1.7-2.3) mg/dL Total Bilirubin (0.2-1.0) mg/dL AST (10-42) IU/L ALT (10-60) IU/L Alkaline Phosphatase (42-121) IU/L Total Protein (6.4-8.9) g/dL Albumin (3.2-5.5) g/dL Globulin (2.1-4.2) g/dL Albumin/Globulin Ratio (1.0-2.2) Prealbumin (17-34) mg/dL Crossmatch IS Only 03/30/24 Range/Units 11:40 WBC (4.8-10.8) x10^3/uL RBC (4.70-6.10) 10^6/uL Hgb (14.0-18.0) g/dL Hct (42.0-52.0) % MCV (80.0-94.0) fL MCH (27.0-31.0) pg MCHC (32.0-36.0) g/dL RDW (12.0-15.0) % Plt Count (130-450) 10^3/uL MPV (7.4-11.4) fL Neut # (Auto) (1.5-6.6) 10^3/uL Lymph # (Auto) (1.5-3.5) 10^3/uL Arthur # (Auto) (0.0-1.0) 10^3/uL Eos # (Auto) (0.0-0.7) 10^3/uL Baso # (Auto) (0.0-0.1) 10^3/uL Absolute Nucleated RBC x10^3/uL Nucleated RBC % /100WBC PT (9.9-12.6) secs INR (0.8-1.2) VBG pH (7.31-7.41) Ionized Calcium (1.09-1.30) mmol/L Sodium (135-145) mmol/L Potassium (3.5-4.5) mmol/L Chloride (101-111) mmol/L Carbon Dioxide (21-32) mmol/L Anion Gap (6-13) BUN (6-20) mg/dL Creatinine (0.6-1.3) mg/dL Estimated GFR (MDRD) (>89) Glucose (74-104) mg/dL POC Whole Bld Glucose (70-100) mg/dL Lactic Acid (0.5-2.2) mmol/L Calcium (8.5-10.3) mg/dL Phosphorus (2.5-5.0) mg/dL Magnesium (1.7-2.3) mg/dL Total Bilirubin (0.2-1.0) mg/dL AST (10-42) IU/L ALT (10-60) IU/L Alkaline Phosphatase (42-121) IU/L Total Protein (6.4-8.9) g/dL Albumin (3.2-5.5) g/dL Globulin (2.1-4.2) g/dL Albumin/Globulin Ratio (1.0-2.2) Prealbumin (17-34) mg/dL Crossmatch IS Only See Detail Diagnostic Imaging Diagnostic Imaging Results: positive Final report reviewed Diagnostic Imaging Comments: 03/30/24 Chest X-ray: IMPRESSION: No acute cardiopulmonary process. 03/31/2024 Abdomen X-ray: FINDINGS AND IMPRESSION: Moderately distended loops of bowel are seen throughout the abdomen, mostly colonic. This is favored to be ileus, though partial obstruction is possible. Consider multiphase CT to further evaluate reported GI bleed. Pelvic densities and postsurgical changes. Bilateral hip arthroplasties. Spine degenerative changes. 03/31/2024 Chest X-ray: IMPRESSION: Possible catheter is seen projecting over left shoulder with tip at the thoracic inlet. Low lung volumes. 04/01/2024 Abdomen X-ray: IMPRESSION: Postoperative changes are seen, without a suspicious foreign body seen. Note: No significant discrepancy from the preliminary report. 04/02/2024 Abdomen/Pelvis CTA: IMPRESSION: Suboptimal evaluation of the pelvis due to metallic artifact. A rectal bleed cannot be excluded. No evidence of active GI hemorrhage. Postoperative changes, with dilated small and large bowel without transition point. Findings favor adynamic ileus Pneumoperitoneum, which is postsurgical. Other Results/Comments Other Results/Comments: I have reviewed the patient's labs. His WBC are high and trending up. Neutrophil # is high and trending up. Monocyte # is high and trending down. His RBC, Hgb, Hct, MCV, and MCH are low and trending down. RDW is high and trending up. PT is high and trending down. Potassium is now low. Anion gap is low. BUN is high and trending down. Creatinine is now normal. GFR is low and trending up. Corrected calcium is low and trending up. Magnesium is high. Alk phos is low and trending up. Total protein and albumin are low and trending up. Globulin is low and trending up. Prealbumin is low and trending down. ABX Reporting Has patient been on IV antibiotics over the past 48 hours?: Yes Assessment/Plan Problem List (1) ABLA (acute blood loss anemia): Impression: - EGD performed 03/30/24 found no blood in stomach, no ulcers, paraesophageal hernia with mild adjacent erythema - Exploratory laparotomy performed 03/31/2024 with iliosacral anastomosis, partial jejenum resection and near total colectomy - Repeat EGD performed 03/31/2024 found blood of an unknown source Status post Day 1 abdominal surgery with iliosacral anastomosis, partial jejenum resection and near total colectomy on 04/01/2024 Surgery is following. Continue to trend H&H, Transfuse RBC as needed. Hemoglobin has dropped from11.7 postsurgery to 8.7 today. Patient is a high risk for rebleeding. Per surgery there are several residual lesions in the small bowel which surgery was unable to remove. These are at risk for bleeding. Low threshold to transfer patient to higher level of care Currently patient is hemodynamically stable, Off pressor support Goal: MAP of 65, or SBP greater than 95 (2) Idiopathic small intestinal ulcers: Impression: Surgery removed several small intestinal lesions. Surgery removed large bowel.. Tissue was sent for pathology. Follow-up pathology. Continue Protonix. (3) Lower GI bleed: Impression: Patient status post EGD 03/31/2024 with no indication of active bleed. Patient had a massive lower GI hemorrhage on 04/01/2024. Was taken to the OR with for abdominal surgery. Please see above Surgery is following (4) Leukocytosis: Impression: Leukocytes continue to increase from 7.6-18.4. Patient is on Zosyn, DC'd Flagyl, added fluconazole. Obtain lactate Patient with benefit from ID consultation. (5) Joint pain: Impression: Patient has chronic joint pain for which he takes meloxicam at night. Stop meloxicam Tylenol and Dilaudid for pain control Recommendation to follow-up with methods engineer as an outpatient. (6) Respiratory failure: Impression: Status post extensive abdominal surgery day 1. Continue lung protective ventilation Plan to keep patient intubated at this time, monitor H&H. Patient is at high risk for Additional abdominal surgery in the near future. Plan to extubate when H&H is stable. (7) Acute renal failure: Impression: Likely secondary to septic shock, Likely ATN Patient's potassium is stable, patient makes urine. Continue to monitor. Continue IV fluids (8) Hypovolemic shock: Impression: Resolved Patient was on Bruce-Synephrine for short time secondary to massive blood loss. Patient is now off pressors (9) Severe sepsis: Impression: Likely secondary to intra-abdominal infection status post surgery date 1. Trend lactate
[2024-04-03 12:24] VITALS: TEMP 98.4
[2024-04-03 14:15] LABS: HCT - HEMATOCRIT 22.9 % (42.0-52.0); HGB - HEMOGLOBIN 7.3 g/dL (14.0-18.0)
--- NOTE | 2024-04-03 14:18 | Discharge Summary ---
"Discharge Summary Admit Date: 03/30/24 Discharge Date: 04/03/24 Discharging Provider: Dr. Javed Dallas Primary Care Provider: Edwardo Srinivasan Code Status: Attempt Resuscitation Discharge Facility Name: [facility] DIAGNOSES Admission Diagnoses: Acute blood loss anemia Upper GI bleed Leukocytosis Joint pain Discharge Diagnoses with Status of Each Condition: Acute blood loss anemia, GI bleedpatient initially went in for an EGD on 03/30 with no acute findings noted, nor was there any active bleeding noted. He then had a large episode of melena, and went back to the OR for exploratory laparotomy on 04/01. Here, there is subtotal colectomy, as well as a small bowel resection with primary anastomosis. Hemoglobin continues to drop. Surgeon spoke with trauma surgeon on-call at [facility], accepted transfer. Plan to transfer over for higher level of care. Leukocytosisstable. Patient remains on Zosyn and fluconazole for possible soure for intrabdominal sepsis. HPI History of Present Illness: Per Dr. Hale: This is a 78-year-old male with a past medical history of bone and joint discomfort, on meloxicam greater than 2 years, who presents to the ER for new onset of lower GI bleed.Patient states that his first bloody watery bowel movement was yesterday, which continued this morning. Patient denies chest pain, Palpitation, shortness of breath or abdominal pain or palpitation. Patient states that he [place] weak on arrival but this has Now resolved. Patient received Protonix and 1 unit of RBCs in the ER. ER physician consulted surgery for EGD. Surgery plan for EGD this afternoon. Laboratory values indicated reactive leukocytosis of 16.8, hemoglobin 7.4 and grossly normal chemistry. CONSULTS | PROCEDURES Consultations: Surgery, [facility] Procedures: EGD Exploratory laparotomy CT angiogram abdomen/pelvis Abdomen x-ray Chest x-ray HOSPITAL COURSE Hospital Course: Patient is a 78-year-old man with a history of chronic pains and daily meloxicam use who presented with gross melena. His hemoglobin on admission was 7.4, and it decreased quickly to 5.6. EGD was done initially on admission which was negative for any acute bleeding. Pathology was sent, which was negative for H. pylori. Over the next few days, patient was transfused a further 2 units PRBCs. On the evening of the , patient had a large episode of bleeding per rectum. Became altered, hypotensive. Massive transfusion protocol was initiated. General surgery was called. They took him for an exploratory laparotomy at that time. Subtotal colectomy was done, as well as a partial small bowel resection. He was started on Zosyn and fluconazole for possible source of intra-abdominal sepsis. Over the next couple days, his hemoglobin was initially stable, then started to drop. He has not had a repeat bloody bowel movement. General surgeon was spoken within agreements with transferring over to a higher level of care in case IR embolization is needed versus tagged RBC scan. Surgeon spoke with trauma surgeon on-call at [facility], who accepted the admission. Plan is to transfer the patient over for higher level of care. ALLERGIES Allergies Allergy/AdvReac Type Severity Reaction Status Date / Time oxycodone AdvReac Unknown Verified 03/30/24 11:20 beta blockers AdvReac Severe Unknown Uncoded 03/30/24 11:20 MEDICATIONS Ambulatory Orders Medication Instructions Recorded Confirmed multivitamin (Multiple Vitamins 1 tab PO DAILY 06/14/18 03/31/24 tablet) vit C 250 mg-vit E 90 mg-zinc 40 1 tab PO QAM AND QHS 03/01/24 03/31/24 mg-copper 1 [id number] capsule (PreserVision AREDS-2) PHYSICAL EXAM AT DISCHARGE General Appearance: positive No acute distress and Alert; negative Anxious Eyes Bilateral: positive Normal inspection, PERRL and EOMI ENT: positive ENT inspection nml, Pharynx nml, No signs of dehydration and Other (NG tube in place with 200 cc of coffee-ground output noted) Neck: positive Nml inspection, Thyroid nml and No JVD Respiratory: positive Chest non-tender, No respiratory distress and Breath sounds nml; negative Wheezes, Rales or Rhonchi Cardiovascular: positive Regular rate & rhythm, No murmur and No gallop; negative Tachycardia or Bradycardia Peripheral Pulses: positive 2+ Abdomen: positive Other (Surgical scar in place, CARMEN drain in place with minimal output ) Back: positive Nml inspection; negative CVA tenderness (R) or CVA tenderness (L) Skin: positive Color nml, No rash, Warm and Dry Extremities: positive Non-tender, Full ROM and No pedal edema Neurologic/Psychiatric: positive Oriented x3, Mood/affect nml and Weakness LABS 04/03/24 14:06 04/03/24 04:25 DIAGNOSTIC IMAGING Diagnostic Imaging Results: Final report reviewed SEPSIS Current Stage of Sepsis: Sepsis Possible source of Sepsis: GI tract/intra-abdominal Sepsis Criteria: Suspected or Documented, Recorded Heart Rate greater than 90 bpm and WBC count greater than 12,000 or less than 4000 QUALITY (Female Hip Fx Only) Was patient sent home on osteoporosis medication?: No FOLLOW UP Follow Up: Follow-up at [facility] for closer monitoring, higher level of care. TIME SPENT Time Spent in Discharge (Minutes): 40 Discharge Plan Discharge Patient Disposition: 02 Transfer Acute Care Hosp Condition: Critical Prescriptions: Continued multivitamin [Multiple Vitamins] 1 EACH tablet 1 tab PO DAILY PreserVision AREDS-2 250-90-40-1 mg capsule 1 tab PO QAM AND QHS Discontinued meloxicam 15 mg tablet 15 mg PO DAILY Qty: 90 3RF Activity Restrictions: Activity as Tolerated Health Concerns: You came in for a large bleed per rectum. He initially had a scope from above, called an EGD, which showed no acute abnormalities. While you were here, you had a large episode of bleeding, which resulted in your blood pressure being very low. As such, the surgeon was called again, and they took you in for surgery. During surgery, they took out your colon, and part of your small intestine. Your blood levels continue to drop. As such, we discussed transferring you over to a hospital with other specialists, like interventional radiology in case you need further intervention. Print Language: Honduran Patient Instructions: Surgery Anesthesia After Stand Alone Forms: PCP List"
[2024-04-03 15:02] VITALS: O2SAT 98
[2024-04-03 16:04] VITALS: BP 130/73
== END 2024-04-03 17:27 | disposition short-term general hospital (02) | DRG 853 ==
LOC: ED 11:01 → MS2 11:01 → ICU 04-01 04:29
PROVIDERS: ADMIT Internal Medicine; ATTEND Internal Medicine
DX: R00.0 Tachycardia, unspecified; I95.9 Hypotension, unspecified; N17.9 Acute kidney failure, unspecified; J96.90 Respiratory failure, unspecified, unspecified whether with hypoxia or hypercapnia; A41.9 Sepsis, unspecified organism; K92.1 Melena; K92.2 Gastrointestinal hemorrhage, unspecified; Z79.1 Long term (current) use of non-steroidal anti-inflammatories (NSAID); R57.1 Hypovolemic shock; R65.21 Severe sepsis with septic shock; M25.50 Pain in unspecified joint; I44.4 Left anterior fascicular block; K28.4 Chronic or unspecified gastrojejunal ulcer with hemorrhage; K44.9 Diaphragmatic hernia without obstruction or gangrene; G89.29 Other chronic pain; K31.89 Other diseases of stomach and duodenum; R53.1 Weakness; I25.2 Old myocardial infarction; D62 Acute posthemorrhagic anemia; D72.829 Elevated white blood cell count, unspecified